=== PATIENT | male | born 1965 | race African-American/Black ===

== ENCOUNTER 2018-04-30 02:55 | Emergency (ER) | payer SELFPAY ==
[2018-04-30 03:05] VITALS: BMI 27.3
--- NOTE | 2018-04-30 03:58 | PDOC ---
History of Present Illness - General Chief Complaint: Headache Stated Complaint: HEADACHE Time Seen by Provider: 04/30/18 03:45 History Source: Patient - History of Present Illness Initial Comments: 04/30/18 04:10 The patient is a 53 year old male with a PMH of GERD, Headaches and PUD who presents to the ED c/o headache. Headache started 2-3 hours prior to presentation in our ED and is R sided w/associated tearing c/w his previous headaches. States he gets these headaches in 3 week periods for the last 7-8 years. Patient is actively intoxicated @ presentation and states he drinks a few beers after work daily. The patient denies chest pain, shortness of breath, abdominal pain, nausea/ vomiting, diarrhea/constipation, dysuria/hematuria. Allergy: Shellfish Past History - Past Medical History Allergies/Adverse Reactions: Allergies Allergy/AdvReac Type Severity Reaction Status Date / Time shellfish derived Allergy Severe Swelling Verified 10/01/15 16:39 No Known Drug Allergies Allergy Verified 10/01/15 17:25 Home Medications: Ambulatory Orders Omeprazole [Prilosec] 20 mg PO DAILY #30 capsule. 10/05/15 Anemia: No Asthma: No Cancer: No Cardiac Disorders: No CVA: No COPD: No CHF: No Dementia: No Diabetes: No GI Disorders: No Disorders: No HTN: No Hypercholesterolemia: No Kidney Stones: No Liver Disease: No Seizures: Yes (last 2013 ) Thyroid Disease: No - Reproductive History Testicular Surgery: No - Suicide/Smoking/Psychosocial Hx Smoking History: Never smoked Have you smoked in the past 12 months: No Information on smoking cessation initiated: No Hx Alcohol Use: No Drug/Substance Use Hx: No Substance Use Type: Alcohol Hx Substance Use Treatment: No Review of Systems - Review of Systems Constitutional: No: Chills, Fever HEENTM: Yes: Tearing. No: Eye Pain, Blurred Vision, Hearing Loss Respiratory: No: Cough, Shortness of Breath Cardiac (ROS): No: Chest Pain, Lightheadedness, Palpitations, Syncope ABD/GI: No: Constipated, Diarrhea, Nausea, Vomiting : No: Burning, Dysuria *Physical Exam - Vital Signs Last Vital Signs Temp Pulse Resp BP Pulse Ox 98.0 F 74 16 164/90 100 04/30/18 02:55 04/30/18 02:55 04/30/18 02:55 04/30/18 02:55 04/30/18 02:55 - Physical Exam General Appearance: Yes: Nourished, Appropriately Dressed, Alcohol on Breath HEENT: positive: Normal Voice, Hearing Grossly Normal Neck: positive: Trachea midline, Supple Respiratory/Chest: positive: Lungs Clear, Normal Breath Sounds Cardiovascular: positive: S1, S2 Gastrointestinal/Abdominal: positive: Normal Bowel Sounds, Soft. negative: Guarding, Rebound Neurologic: positive: Fully Oriented, Alert Moderate Sedation - Procedure Monitoring Vital Signs: Procedure Monitoring Vital Signs Temperature 98.0 F 04/30/18 02:55 Pulse Rate 74 04/30/18 02:55 Respiratory Rate 16 04/30/18 02:55 Blood Pressure 164/90 04/30/18 02:55 O2 Sat by Pulse Oximetry (%) 100 04/30/18 02:55 Medical Decision Making - Medical Decision Making 04/30/18 04:15 53 year old male with headache. Alcohol on breath @ presentation. Sleeping but arousable. VS unremarkable. No focal neurologic deficit on exam. Clinical history and presentation c/w cluster headache. Will give O2 NC as well as Reglan. Serum Ethanol pending. Reassess. 04/30/18 05:51 Alcohol 72.4 Patient reassessed @ bedside, symptomatically improved. 04/30/18 06:09 Will give Tylenol, referral to neurology and discharge home. Clinical Impression: Undiagnosed Cluster Headache w/superimposed alcohol intoxication I discussed the physical exam findings, ancillary test results and final diagnoses with the patient. I answered all of the patient's questions. The patient was satisfied with the care received and felt comfortable with the discharge plan and treatment plan. The patient will return to the Emergency Department with any new, persistent or worsening symptoms. 04/30/18 06:15 *DC/Admit/Observation/Transfer Diagnosis at time of Disposition: Headache - Discharge Dispostion Disposition: HOME Condition at time of disposition: Good Decision to Admit order: No - Referrals Referrals: Kj Montanez MD [Primary Care Provider] - Rodger Polanco DO [Staff Physician] - - Patient Instructions Printed Discharge Instructions: Getting to the Heart of a Healthy Diet: Alcohol , Heart-Healthy Diet, DI for Cluster Headache Additional Instructions: Please make a follow-up appointment with a neurologist for evaluation of your headaches. We have provided a referral for you or you can call your insurance company for a list of neurologists covered by your plan. Your care is not complete until you are evaluated by a neurologist. Return to the Emergency Department for any new/worsening/concerning symptoms. - Post Discharge Activity Forms/Work/School Notes: Back to Work
--- NOTE | 2018-04-30 04:07 | PDOC ---
Attending Attestation - Resident Resident Name: Miriam Dejesus - ED Attending Attestation I have performed the following: I have examined & evaluated the patient, The case was reviewed & discussed with the resident, I agree w/resident's findings & plan - HPI HPI: 04/30/18 06:04 Pt comes with headache. - Physicial Exam PE: 04/30/18 06:12 Agree with resident exam. Pt has normal neuro exam. HEENT normal. Missing front teeth. Abd soft NT ND Lungs clear; heart [id number] no ext pitting edema. Pt is neurologically intact. - Medical Decision Making 04/30/18 06:13 diagnosis: cluster HALLMAN. Pt will be referred to neurology. We counseled him on need to cut back on ETOH and eat healthful food.
[2018-04-30] MEDS ORDERED: KETOROLAC TROMETHAMINE 30 MG/1 ML VIAL IVPUSH ONE (04:11)
[2018-04-30] MEDS ORDERED: METOCLOPRAMIDE HCL INJECTION 10 MG/2 ML VIAL IVPUSH ONE ×2 (04:11→04:28)
[2018-04-30] MEDS ORDERED: METOCLOPRAMIDE HCL INJECTION 10 MG/2 ML VIAL ONE (05:19)
[2018-04-30] MEDS ORDERED: METOCLOPRAMIDE HCL 5 MG/5 ML UNIT DOSE CUP PO ONE (05:23)
[2018-04-30] MEDS ORDERED: METOCLOPRAMIDE HCL 10 MG TABLET (FP) PO ONE (05:33)
[2018-04-30] MEDS ORDERED: ACETAMINOPHEN 500 MG TABLET (FP) PO ONE (06:08)
[2018-04-30] MEDS ORDERED: ACETAMINOPHEN 325 MG TABLET (FP) ONE (06:37)
[2018-04-30 06:44] VITALS: BP 128/77; PULSE 82; TEMP 98.3
== END 2018-04-30 07:14 | disposition home or self-care (01) ==
LOC: JER 02:55
DX: G44.009 Cluster headache syndrome, unspecified, not intractable (principal); Z87.19 Personal history of other diseases of the digestive system; Z86.69 Personal history of other diseases of the nervous system and sense organs
CPT/HCPCS: 36415; 80307; 99281-25

== ENCOUNTER 2019-06-07 16:39 | Inpatient (IN) | payer OTHER ==
[2019-06-07] MEDS ORDERED: SODIUM CHLORIDE 1,000 ML IV STA (16:54)
[2019-06-07] MEDS ORDERED: ONDANSETRON 4 MG/2 ML VIAL IVPUSH ONE (16:54)
[2019-06-07] MEDS ORDERED: KETOROLAC TROMETHAMINE 30 MG/1 ML VIAL IVPUSH ONE (16:54)
[2019-06-07] MEDS ORDERED: PANTOPRAZOLE SODIUM 40 MG VIAL IVPUSH ONE (16:55)
--- NOTE | 2019-06-07 16:57 | PDOC ---
Rapid Medical Evaluation Time Seen by Provider: 06/07/19 16:53 Medical Evaluation: Allergies Allergy/AdvReac Type Severity Reaction Status Date / Time shellfish derived Allergy Severe Swelling Verified 06/07/19 16:53 No Known Drug Allergies Allergy Verified 06/07/19 16:53 06/07/19 16:55 Pt c/o: n/v/d, abd pain, dizziness since this am, drinks etoh daily pt on brief exam: tachy, not intoxicated pt ordered for: labs, urine, ivf, meds pt to proceed to the ED 06/07/19 16:56 Discharge Disposition - Diagnosis Nausea & vomiting, Abnormal EKG, Abdominal pain - Discharge Dispostion Disposition: HOME Condition at time of disposition: Improved - Referrals - Patient Instructions - Post Discharge Activity
--- NOTE | 2019-06-07 17:35 | PDOC ---
History of Present Illness - General History Source: Patient - History of Present Illness Initial Comments: 06/07/19 19:10 Mr. Orona is a 54 y/o M w/hx GERD, gastric ulcers, etoh use disorder p/w acute onset N/V last night. He reports drinking approx 6 beers one day ago, and waking up with 8/10 aching diffuse abdominal pain. He reports similar prior episodes after drinking alcohol. He reports approx 3-6 beers daily. He reports "constant" non-bilious vomiting throughout the course of the day, with blood tinged vomitus during his last 2 episodes of vomiting. He denies any abdominal surgery. He denies any chest pain, sob, fatigue, weakness. He has not attempted po since the onset of his symptoms. He has no family history of cardiac disease. <Noah Bloom - Last Filed: 06/07/19 21:12> <Tish Verdugo - Last Filed: 06/08/19 09:35> - General Chief Complaint: Nausea/Vomiting Stated Complaint: VOMITING/FATIGUE Time Seen by Provider: 06/07/19 16:53 Past History - Past Medical History Anemia: No Asthma: No Cancer: No Cardiac Disorders: No CVA: No COPD: No CHF: No Dementia: No Diabetes: No GI Disorders: No Disorders: No HTN: No Hypercholesterolemia: No Kidney Stones: No Liver Disease: No Seizures: Yes (last 2013 ) Thyroid Disease: No - Reproductive History Testicular Surgery: No - Psycho Social/Smoking Cessation Hx Smoking History: Never smoked Hx Alcohol Use: Yes Drug/Substance Use Hx: No Substance Use Type: Alcohol Hx Substance Use Treatment: No <Noah Bloom - Last Filed: 06/07/19 21:12> <Tish Verdugo - Last Filed: 06/08/19 09:35> - Past Medical History Allergies/Adverse Reactions: Allergies Allergy/AdvReac Type Severity Reaction Status Date / Time shellfish derived Allergy Severe Swelling Verified 06/07/19 16:53 No Known Drug Allergies Allergy Verified 06/07/19 16:53 Review of Systems - Review of Systems Able to Perform ROS?: Yes Comments:: 06/07/19 21:04 ROS: GENERAL/CONSTITUTIONAL: No fever or chills. No weakness. HEAD, EYES, EARS, NOSE AND THROAT: No change in vision. No ear pain or discharge. No sore throat. CARDIOVASCULAR: No chest pain or shortness of breath RESPIRATORY: No cough, wheezing, or hemoptysis. GASTROINTESTINAL: Nausea, vomiting, abdominal pain. No diarrhea or constipation. GENITOURINARY: No dysuria, frequency, or change in urination. MUSCULOSKELETAL: No joint or muscle swelling or pain. No neck or back pain. SKIN: No rash NEUROLOGIC: No headache, vertigo, loss of consciousness, or change in strength/ sensation. ENDOCRINE: No increased thirst. No abnormal weight change HEMATOLOGIC/LYMPHATIC: No anemia, easy bleeding, or history of blood clots. ALLERGIC/IMMUNOLOGIC: No hives or skin allergy. <Noah Bloom - Last Filed: 06/07/19 21:12> *Physical Exam - Vital Signs Last Vital Signs Temp Pulse Resp BP Pulse Ox 114 H 26 H 156/100 97 06/07/19 16:53 06/07/19 16:53 06/07/19 16:53 06/07/19 16:53 - Physical Exam 06/07/19 21:07 PE: GENERAL: Awake, alert, and fully oriented, groaning HEAD: No signs of trauma, normocephalic, atraumatic EYES: PERRLA, EOMI, sclera anicteric, conjunctiva clear ENT: Auricles normal inspection, hearing grossly normal, nares patent, oropharynx clear without exudates. Moist mucosa NECK: Normal ROM, supple, no lymphadenopathy, JVD, or masses LUNGS: No distress, speaks full sentences, clear to auscultation bilaterally HEART: Regular rate and rhythm, normal S1 and S2, no murmurs, rubs or gallops, peripheral pulses normal and equal bilaterally. ABDOMEN: Epigastric tenderness. Soft, normoactive bowel sounds. No guarding, no rebound. No masses EXTREMITIES : Normal inspection, Normal range of motion, no edema. No clubbing or cyanosis NEUROLOGICAL: Cranial nerves II through XII grossly intact. Normal speech, normal gait, no focal sensorimotor deficits SKIN: Warm, Dry, normal turgor, no rashes or lesions noted <Noah Bloom - Last Filed: 06/07/19 21:12> - Vital Signs Last Vital Signs Temp Pulse Resp BP Pulse Ox 98.7 F 78 18 96/61 100 06/08/19 06:00 06/08/19 06:00 06/08/19 06:00 06/08/19 06:00 06/08/19 03:40 <LucinaTish Pruett - Last Filed: 06/08/19 09:35> Heart Score/ECG Review - History History: Slightly suspicious - Electrocardiogram EKG: Non specific repolarization disturbance - Age Age: 45-65 - Risk Factors Based on the list above the patient has:: No risk factors known - Troponin Troponin: </= normal limit - Score Heart Score - Total: 2 <Noah Bloom - Last Filed: 06/07/19 21:12> ED Treatment Course - LABORATORY CBC & Chemistry Diagram: 06/07/19 17:45 06/07/19 17:45 <Noah Bloom - Last Filed: 06/07/19 21:12> - LABORATORY CBC & Chemistry Diagram: 06/08/19 06:50 06/08/19 02:00 - ADDITIONAL ORDERS Additional order review: 06/07/19 17:45 RBC 6.30 H MCV 84.7 MCHC 33.3 RDW 15.6 MPV 8.9 Neutrophils % 83.9 H Lymphocytes % 8.4 Monocytes % 7.4 Eosinophils % 0.0 Basophils % 0.3 - Medications Given in the ED: ED Medications Discontinued Medications Generic Name Dose Route Start Last Admin Trade Name Ovidio PRN Reason Stop Dose Admin Aspirin 325 mg 06/07/19 19:45 06/07/19 20:01 Ecotrin - PO 06/07/19 19:46 325 mg ONCE ONE Administration Clopidogrel Bisulfate 300 mg 06/07/19 19:45 06/07/19 20:01 Plavix - PO 06/07/19 19:46 300 mg ONCE ONE Administration Diazepam 10 mg 06/07/19 18:15 06/07/19 18:21 Valium - PO 06/07/19 18:16 10 mg ONCE ONE Administration Folic Acid 0.4 mg 06/07/19 22:54 06/08/19 00:12 Folic Acid Injection - SQ 06/07/19 22:55 0.4 mg ONCE ONE Administration Sodium Chloride 1,000 mls @ 1,000 mls/hr 06/07/19 16:54 06/07/19 17:56 Normal Saline - IV 06/07/19 17:53 1,000 mls/hr ASDIR STA Administration Folic Acid 1 mg/ Thiamine HCl 1,000 mls @ 125 mls/hr 06/07/19 22:51 06/08/19 00:48 100 mg/ Multivitamins/Minerals IVPB 06/08/19 06:50 125 mls/hr 10 ml/ Sodium Chloride ONCE ONE Administration Potassium Chloride 10 meq in 100 mls @ 100 mls/hr 06/07/19 23:00 06/08/19 02: 08 Potassium Chloride 10 Meq Premix Ivpb - IVPB 06/08/19 01:59 Not Given Q60M DREW Ketorolac Tromethamine 30 mg 06/07/19 16:54 06/07/19 18:02 Toradol Injection - IVPUSH 06/07/19 16:55 30 mg ONCE ONE Administration Ondansetron HCl 4 mg 06/07/19 16:54 06/07/19 18:02 Zofran Injection IVPUSH 06/07/19 16:55 4 mg ONCE ONE Administration Pantoprazole Sodium 40 mg 06/07/19 16:55 06/07/19 18:02 Protonix Iv IVPUSH 06/07/19 16:56 40 mg ONCE ONE Administration Potassium Chloride 40 meq 06/08/19 04:06 06/08/19 04:21 Potassium Chloride Oral Liquid PO 06/08/19 04:07 40 meq ONCE ONE Administration Sodium Chloride 1,000 ml 06/07/19 19:13 06/07/19 20:02 Normal Saline - IV 06/07/19 19:14 1,000 ml ONCE ONE Administration <Tish Verdugo - Last Filed: 06/08/19 09:35> Medical Decision Making - Medical Decision Making 06/07/19 20:40 54M w/hx GERD, gastric ulcer, etoh use disorder p/w acute onset abdominal pain s/p etoh use. Ddx includes pancreatitis, worsening GERD, cholecystitis, ACS. Plan: CBC CMP Cardiac profile 1L LR IV EKG CXR Zofran 4mg Pantoprazole Valium Toradol Dispo: Pending --- EKG notable for new T wave inversions and ST depressions in posterior leads, as well as slight elevation in aVR. Findings new compared to last EKG in system was in 2017. He denies any chest pain or palpitations at this time. Plan for ASA, plavix, R sided EKG. --- R sided EKG - improved - no ST elevations, no elevation noted in aVR --- CMP notable for Cr 2.7. Most recent on file was 0.9. Plan for admission for ROSS. <Noah Bloom - Last Filed: 06/07/19 21:12> Discharge - Discharge Information Problems reviewed: Yes - Admission Yes <Noah Bloom - Last Filed: 06/07/19 21:12> - Admission Yes <Tish Verdugo - Last Filed: 06/08/19 09:35> - Discharge Information Clinical Impression/Diagnosis: Abnormal EKG, Abdominal pain Nausea & vomiting Qualifiers: Vomiting type: unspecified Vomiting Intractability: non-intractable Qualified Code(s): R11.2 - Nausea with vomiting, unspecified Condition: Stable
[2019-06-07] MEDS ORDERED: KETOROLAC TROMETHAMINE 30 MG/1 ML VIAL ONE (18:00)
[2019-06-07] MEDS ORDERED: ONDANSETRON 4 MG/2 ML VIAL ONE (18:01)
[2019-06-07] MEDS ORDERED: PANTOPRAZOLE SODIUM 40 MG VIAL ONE (18:01)
[2019-06-07] MEDS ORDERED: diazePAM 5 MG TABLET PO ONE (18:15)
[2019-06-07] MEDS ORDERED: diazePAM 5 MG TABLET ONE (18:20)
[2019-06-07 18:37] LABS: BASO % 0.3 % (0-2.0); HEMATOCRIT 53.3 % (35.4-49); HEMOGLOBIN 17.7 GM/dL (11.7-16.9); LYMPH % 8.4 % (8-40); MCH 28.2 pg (25.7-33.7); MCHC 33.3 g/dl (32.0-35.9); MEAN CELL VOLUME 84.7 fl (80-96); MEAN PLT VOLUME 8.9 fl (7.5-11.1); MONO % 7.4 % (3.8-10.2); NEUT % 83.9 % (42.8-82.8); PLATELET COUNT 438 K/MM3 (134-434); RDW 15.6 % (11.9-15.9); WHITE BLOOD COUNT 13.4 K/mm3 (4.0-10.0)
[2019-06-07 19:09] LABS: ALBUMIN 5.1 g/dl (3.4-5.0); ALK PHOS 156 U/L (45-117); AMYLASE 53 U/L (25-115); ANION GAP 17 MMOL/L (8-16); BILIRUBIN,TOTAL 0.7 mg/dL (0.2-1); BLOOD UREA NITROGEN 17.5 mg/dL (7-18); CALCIUM 10.7 mg/dL (8.5-10.1); CHLORIDE 96 mmol/L (98-107); CO2 26 mmol/L (21-32); CREATININE 2.7 mg/dL (0.55-1.3); GLUCOSE,RANDOM 173 mg/dL (74-106); LIPASE 153 U/L (73-393); MAGNESIUM 1.9 mg/dL (1.8-2.4); POTASSIUM 3.3 mmol/L (3.5-5.1); SGOT/AST 36 U/L (15-37); SGPT/ALT 41 U/L (13-61); SODIUM 140 mmol/L (136-145); TOT PROT 10.2 g/dl (6.4-8.2)
--- NOTE | 2019-06-07 19:09 | PDOC ---
Attending Attestation - Resident Resident Name: WolfNoah - ED Attending Attestation I have performed the following: I have examined & evaluated the patient, The case was reviewed & discussed with the resident, I agree w/resident's findings & plan - HPI HPI: 06/07/19 19:16 54 year old male with a PMH of GERD, Headaches and PUD, alcohol dependence presenting with epigastric AP. nausea vomiting since yesterday. his last drink of 6 beers about 1 day ago, today woke up with aching diffuse AP. He reports similar prior episodes after drinking alcohol. He reports approx 3-6 beers daily. He reports "constant" non-bilious vomiting throughout the course of the day, with blood tinged vomitus during his last 2 episodes of vomiting. He denies any abdominal surgery. He denies any chest pain, sob, fatigue, weakness. He has not attempted po since the onset of his symptoms. He has no family history of cardiac disease/OK/sudden . Leg cramps have also been bothering him for long time, but no leg pain or swelling.. no weakness or paresthesias. 06/08/19 09:36 06/08/19 09:49 - Physicial Exam PE: 06/07/19 19:09 Agree with the resident's HPI and PE as documented in the electronic medical record. NAD, awake and alert, EOMI, PERRL, nl conjunctiva, anicteric; neck supple. lungs clear, +tachy, abdomen soft +epigastric TTP, no rebound, guarding. no cassidy's or mcburney's point tenderness. no CVAT> Back nontender. DELGADO x4, no focal neuro deficits. No peripheral edema. normal color for ethnicity, WWP. 06/07/19 19:09 06/08/19 09:52 - Medical Decision Making 06/07/19 19:15 Vital Signs Temp Pulse Resp BP Pulse Ox 114 H 26 H 156/100 97 06/07/19 16:53 06/07/19 16:53 06/07/19 16:53 06/07/19 16:53 Vital Signs Temp Pulse Resp BP Pulse Ox 98.6 F 83 18 111/67 100 06/08/19 09:34 06/08/19 09:34 06/08/19 09:34 06/08/19 09:34 06/08/19 03:40 VS reviewed initially tachy likely from pain no fever. hypertensive 2/2 pain DDx Renal colic, biliary colic, metabolic/electrolyte derangements. GERD, PUD, esophageal spasm, pancreatitis, hepatitis, constipation, colitis, gastroenteritis, cholecystitis, UTI, pyelonephritis, ileus, SBO, medication side effect, hernia, appendicitis, diverticulitis. msk strain, mesenteric adenitis, psoas abscess. ACS, coronary vasospasm, NSTEMI, arrhythmia, unstable angina, PE, dissection, PUD, esophageal spasm, GERD, gastritis, costochondritis , pneumonia, pleurisy, pericarditis/myocarditis. dehydration, electrolyte/ metabolic derangements. no lower abdominal pain so unlikely appy/diverticulitis no complaints doubt biliary etiology. abdomen soft and nonperitoneal. labs and lytes with +cr elevtion 2.7, ROSS. trops neg, reassuringly, but new EKG changes and epigastric AP, needs MARVA/r/o ACS pt given valium for leg cramps, also holds off etoh w/d, no e/o intox or alcohol w/d now pt in pain, given appropriate analgesia, IVF, antiemetics, supportive measures Ultrasound with cholelithiasis without evidence of cholecystitis, possible chronic pancreatitis seen, recommended CT imaging for further care. Will admit to the hospital pending the CT scan for further evaluation is unlikely to have emergent pathology at this time. Patient has medical diagnoses including abnormal EKG with new T wave inversions in the lateral inferior leads as well as ROSS with creatinine now up to 2.7. Hydrating now and recheck. 06/08/19 09:37 06/08/19 09:52 06/08/19 09:54 Heart Score/ECG Review #1 ECG reviewed & interpreted by me at: 19:00 General ECG Interpretation: Sinus Rhythm, Normal Intervals Compared to previous ECG there are: Changes noted 06/07/19 19:16 EKG sinus tachycardia 102 bpm no interval abnormalities, narrow QRS, ST and T wave segments and morphology normal. Nonspecific T wave abnormalities with new T wave inversions in the lateral leads, inferior leads II, III and aVF
[2019-06-07] MEDS ORDERED: SODIUM CHLORIDE 0.9% 500 ML INFUS.BAG IV ONE (19:13)
[2019-06-07] MEDS ORDERED: ASPIRIN 325 MG ENTERIC COATED TABLET (FP) PO ONE (19:45)
[2019-06-07] MEDS ORDERED: CLOPIDOGREL BISULFATE 300 MG TABLET PO ONE (19:45)
[2019-06-07] MEDS ORDERED: ASPIRIN 325 MG ENTERIC COATED TABLET (FP) ONE (19:56)
[2019-06-07] MEDS ORDERED: CLOPIDOGREL BISULFATE 300 MG TABLET ONE (19:57)
--- NOTE | 2019-06-07 21:46 | PN ---
Teaching Attending Note Name of Resident: David Odom ATTENDING PHYSICIAN STATEMENT I saw and evaluated the patient. I reviewed the resident's note and discussed the case with the resident. I agree with the resident's findings and plan as documented. SUBJECTIVE: Patient is a 54 year old man with a PMH of GERD, Bleeding gastric ulcers, Alcohol abuse and Seizures who presents with acute onset of nausea and vomiting last night. He reports drinking about 6 beers one day ago, and waking up with 8/ 10 aching diffuse abdominal pain. He reports similar prior episodes after drinking alcohol. He reports "constant" non-bilious vomiting throughout the course of the day, with blood tinged vomitus during his last 2 episodes of vomiting. Has associated diarrhea. He denies any abdominal surgery. He denies any chest pain, SOB, fatigue or weakness. He has not attempted PO intake since the onset of his symptoms. He has no family history of cardiac disease. Denies tobacco or illicit drug use. No sick contacts or recent travels. OBJECTIVE: Alert Vital Signs Period Temp Pulse Resp BP Sys/Griffin Pulse Ox Last 24 Hr 99-114 20-26 114-156/71-100 97-100 HEENT: No Jaundice, eye redness or discharge, PERRLA, EOMI. Normocephalic, atraumatic. External ears are normal and hearing is grossly intact. No nasal discharge. Neck: Supple, nontender. No palpable adenopathy or thyromegaly. No JVD Chest: Good effort. Clear to auscultation and percussion. Heart: Regular. No S3, rub or murmur Abdomen: Not distended, soft, nontender and no HSM. Reducible umblical hernia. No rebound or guarding. Normal bowel sounds. Ext: Peripheral pulses intact. No leg edema. Skin: Warm and dry. No petechiae, rash or ecchymosis. Neuro: Alert. Oriented x3. No tremors or asterexis. CN 2-12 grossly intact. Sensation grossly intact in all four extremities and DTR are symmetric. Psych: Appropriate mood and affect. Good insight. Current Medications Generic Name Dose Route Start Last Admin Trade Name Freq PRN Reason Stop Dose Admin Folic Acid 1 mg/ Thiamine HCl 1,000 mls @ 125 mls/hr 06/07/19 22:51 100 mg/ Multivitamins/Minerals IVPB 06/08/19 06:50 10 ml/ Sodium Chloride ONCE ONE Lactated Ringer's 1,000 ml in 1,000 mls @ 100 mls/hr 06/07/19 23:00 Lactated Ringers Solution IV ASDIR DREW Potassium Chloride 10 meq in 100 mls @ 100 mls/hr 06/07/19 23:00 Potassium Chloride 10 Meq Premix Ivpb - IVPB 06/08/19 01:59 Q60M DREW Pantoprazole Sodium 40 mg 06/08/19 10:00 Protonix Iv IVPUSH BID DREW Thiamine HCl 200 mg 06/08/19 10:00 Vitamin B1 Injection - IVPB DAILY [facility] Home Medications Medication Instructions Recorded Omeprazole 20 mg PO DAILY 06/07/19 Abnormal Lab Results 06/07/19 06/07/19 17:45 17:45 WBC 13.4 H RBC 6.30 H Hgb 17.7 H Hct 53.3 H D Plt Count 438 H D Absolute Neuts (auto) 11.3 H Neutrophils % 83.9 H Potassium 3.3 L Chloride 96 L Anion Gap 17 H Creatinine 2.7 H Random Glucose 173 H Calcium 10.7 H Alkaline Phosphatase 156 H Total Protein 10.2 H Albumin 5.1 H ASSESSMENT AND PLAN: 1. Alcoholic gastritis/GI bleeding - Patient being treated with IV Protonix, Zofran, IV NS and IV KCL. Will monitor HCT q 6 hours, get HbA1c, phosphate level , consult GI and avoid NSAIDS. Get CT abdomen/pelvis. Repeat serum calcium after hydration an get PTH level if it is still high. EKG shows sinus tachycardia at 102/minute, ST depression in III, V4-6 and LAE. Initial troponin is negative. Will rule out ACS. Leukocytosis likely due to stress. UA and abdominal CT pending. He is afebrile. Will continue comprehensive care for all of patients comorbid conditions. Implement sliding scale insulin regimen. 2. ROSS - Likely due to volume loss. Will monitor urine output as he is hydrated and get kidney sonogram. Will consult nephrology and avoid nephrotoxic agents such as NSAIDS, aminoglycosides, contrast dyes and certain Alternative medicine products. 3. Alcohol abuse - Implement [facility] librium alcohol withdrawal protocol and do neurochecks. Implement seizure, fall and aspiration precautions. Treat with IV Banana bag, thiamine and folic acid. Monitor and replete electrolytes (Ca,Mg,K,P ). Counseled patient about abstaining from alcohol. Will consult learning and development specialist and refer to alcohol detox upon discharge. 4. DVT prophylaxis - SCD 5. Advance directives - Full code
[2019-06-07] MEDS ORDERED: FOLIC ACID INJECTION - 1 MG, THIAMINE HCL 100 MG, MULTIVIT INJECTION ADULT 10 ML in SOD... IVPB ONE (22:51)
[2019-06-07] MEDS ORDERED: FOLIC ACID 5 MG/1 ML SQ ONE (22:54)
--- NOTE | 2019-06-07 23:02 | HP ---
CHIEF COMPLAINT: Nausea and vomiting PCP: Dr. Montanez HISTORY OF PRESENT ILLNESS: Pt. is a 54 y.o. M w/ PMHx. of GERD, PUD, and EtOH abuse presents with nausea and vomiting for 1 day associated with 6 episodes of watery diarrhea earlier in the day. Pt. endorses that he had been having blood in the emesis. Of note Pt. states that 8 months ago he was admitted at [facility] for the exact same situation where he had a unremarkable colonoscopy and an EGD. During EGD Pt. was found to have multiple gastric and duodenal ulcers which were cauterized. Pt. had a change in hemoglobin from 16 to 8 during this time but never received a transfusion. Pt. was discharged on a daily PPI. Pt. states that he has not taken his Omeprazole since Monday because he ran out. Pt. states that 3 years ago he was admitted at [facility] for a similar presentation. Pt. endorses throat pain and "burning in his esophagus." Pt. states that he presented with muscle cramps all over but that that has gotten better. Pt. states that he had one episode of dizziness after vomiting and he "passed out" for a brief moment but denies hitting his head or losing consciousness?. Pt. endorses some epigastric discomfort. Pt. denies any blood in his stool or urine. Pt. denies any chest pain currently or in the past, shortness of breath, fever, chills, or current dizziness. ER course was notable for: (1)CBC, CMP, Trop, EKG x 2, (2)Zofran, Toradol, ASA, Plavix, Protonix (3) Recent Travel: No PAST MEDICAL HISTORY: As above PAST SURGICAL HISTORY: None Social History: Smoking: Denies Alcohol: ~3-6 beers (sometimes Malt liquor, sometimes 18 Oz. 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 Allergies shellfish derived Allergy (Severe, Verified 06/07/19 16:53) Swelling No Known Drug Allergies Allergy (Verified 06/07/19 16:53) HOME MEDICATIONS: Home Medications Medication Instructions Recorded Omeprazole 20 mg PO DAILY 06/07/19 REVIEW OF SYSTEMS As above PHYSICAL EXAMINATION Vital Signs - 24 hr 06/07/19 06/07/19 06/07/19 16:53 22:24 22:36 Pulse Rate 114 H Pulse Rate [ 99 H Radial] Respiratory 26 H 20 Rate Blood Pressure 156/100 Blood Pressure 114/71 [Right Arm] O2 Sat by Pulse 97 98 100 Oximetry (%) Temperature 98 degrees Orally GENERAL: Awake, alert, and fully oriented, in no acute distress. HEAD: Normal with no signs of trauma. EYES: Pupils equal, round and reactive to light, extraocular movements intact, sclera anicteric, conjunctiva clear. EARS, NOSE, THROAT: Ears normal, nares patent, pharyngeal erythema Moist mucous membranes. NECK: Normal range of motion, supple without lymphadenopathy, or JVD LUNGS: Breath sounds equal, clear to auscultation bilaterally. No wheezes, and no crackles. No accessory muscle use. HEART: Regular rate and rhythm, normal S1 and S2 without murmur ABDOMEN: Soft, nontender, not distended, normoactive bowel sounds, no guarding, no rebound, reducible umbilical hernia. No hepatomegaly MUSCULOSKELETAL: Normal range of motion at all joints. No CVA tenderness. UPPER EXTREMITIES: 2+ radial pulses, warm, well-perfused. No cyanosis. No clubbing. No peripheral edema. LOWER EXTREMITIES: 2+ dorsal pedal pulses, warm, well-perfused. No calf tenderness. No peripheral edema. NEUROLOGICAL: Normal speech. No focal deficits. PSYCHIATRIC: Cooperative. Good eye contact. Appropriate mood and affect. SKIN: Warm, dry Laboratory Results - last 24 hr 06/07/19 06/07/19 17:45 17:45 WBC 13.4 H RBC 6.30 H Hgb 17.7 H Hct 53.3 H D MCV 84.7 MCH 28.2 MCHC 33.3 RDW 15.6 Plt Count 438 H D MPV 8.9 Absolute Neuts (auto) 11.3 H Neutrophils % 83.9 H Lymphocytes % 8.4 Monocytes % 7.4 Eosinophils % 0.0 Basophils % 0.3 Nucleated RBC % 0 Sodium 140 Potassium 3.3 L Chloride 96 L Carbon Dioxide 26 Anion Gap 17 H BUN 17.5 Creatinine 2.7 H Est GFR (CKD-EPI)AfAm 29.63 Est GFR (CKD-EPI)NonAf 25.56 Random Glucose 173 H Calcium 10.7 H Magnesium 1.9 Total Bilirubin 0.7 AST 36 ALT 41 Alkaline Phosphatase 156 H Creatine Kinase 287 Creatine Kinase Index 1.1 CK-MB (CK-2) 3.4 Troponin I < 0.02 Total Protein 10.2 H Albumin 5.1 H Total Amylase 53 Lipase 153 ASSESSMENT/PLAN: Pt. is a 54 y.o. M w/ PMHx. of GERD, PUD, and EtOH abuse presents with nausea and vomiting for 1 day associated with 6 episodes of watery diarrhea earlier in the day. #Diarrhea, Nausea and blood tinged-Vomiting w/ associated Hx. of Peptic Ulcer Disease c/w Protonix 40mg IV BID NPO GI Consult (Dr. Young) appreciated, suspect Pt. may require inpatient EGD for evaluation of PUD and for evalauation of esophagus. CT: A/P shows cholelithiasis, lower esophageal wall thickening to 1.7cm circumferentially (normally 0.03cm per discussion with Dr. Kidd), chronic pancreatitis, denies the presenc of overt varices, unable to rule out esophageal mass Lipase: 153 f/u EGD records from [facility] trend Hgb, monitor for signs of bleeding #ROSS likely 2/2 to volume loss from episodes of vomiting and diarrhea Cr. 2.7 increased from 0.9 (2016) Pt. has elevation in ABC, Hgb, Hct and platelets again suggesting dehydration and volume loss trend renal function and avoid nephrotoxic agents. Pt. endorses a similar situation at [facility] 8 months ago, if Renal function does not improve would suggest getting renal consult for further work up. #EtoH Abuse counselled Pt on importance of EtOH cessation EtOH level: 72 No signs of active withdrawal, will start Librium protocol if Pt. begins to show signs of withdrawal. Can use Ativan protocol if Pt. is to maintain prolonged NPO status CIWA: 0 Thiamine and Folic Acid f/u Utox #FEN LR @ 100 monitor electrolytes and replete as needed, repleting potassium in IV and with PO, f/u repeat NPO #DVT Ppx. SCDs Visit type - Emergency Visit Emergency Visit: Yes ED Registration Date: 06/07/19 Care time: The patient presented to the Emergency Department on the above date and was hospitalized for further evaluation of their emergent condition. - New Patient This patient is new to me today: Yes Date on this admission: 06/07/19 - Critical Care Critical Care patient: No ATTENDING PHYSICIAN STATEMENT I saw and evaluated the patient. I reviewed the resident's note and discussed the case with the resident. I agree with the resident's findings and plan as documented. SUBJECTIVE: OBJECTIVE: ASSESSMENT AND PLAN:
[2019-06-07] MEDS: LACTATED RINGERS SOLUTION 1,000 ML/1,000 ML INFUS.BAG IV SCH (23:20)
[2019-06-07] MEDS ORDERED: KCL 10 MEQ IVPB 30 MEQ/300 ML INFUS.BAG IVPB ONE (23:22)
[2019-06-07] MEDS ORDERED: amLODIPine BESYLATE 5 MG TABLET (FP) ONE (23:27)
[2019-06-07] MEDS: KCL 10 MEQ IVPB 10 MEQ/100 ML INFUS.BAG IVPB SCH (23:33)
[2019-06-08] MEDS: KCL 10 MEQ IVPB 10 MEQ/100 ML INFUS.BAG IVPB SCH ×2 (00:48→02:08)
[2019-06-08 03:08] LABS: BLOOD UREA NITROGEN 21.6 mg/dL (7-18); CREATININE 1.8 mg/dL (0.55-1.3); POTASSIUM 3.3 mmol/L (3.5-5.1)
[2019-06-08 03:57] VITALS: BMI 27.9
[2019-06-08] MEDS ORDERED: POTASSIUM CHLORIDE ORAL LIQUID 20 MEQ/15 ML PO ONE (04:06)
[2019-06-08 05:21] LABS: URINE APPEARANCE TURBID; URINE COLOR DK YELLOW; URINE GLUCOSE (UA) NEGATIVE (NEGATIVE)
[2019-06-08 05:22] LABS: URINE BILIRUBIN SMALL (NEGATIVE); URINE KETONE TRACE (NEGATIVE); URINE NITRITE NEGATIVE (NEGATIVE); URINE PROTEIN 300 (NEGATIVE)
[2019-06-08 05:23] LABS: EPI CELLS 20.2 /HPF (0-5/HPF); HYALINE CASTS 584.12 /lpf (0-8); URINE BACTERIA 0.7 /hpf (NEGATIVE); URINE LEUK ESTERASE NEGATIVE (NEGATIVE); URINE RBC 1.1 /hpf (0-4); URINE WBC 5.7 /hpf (0-5)
[2019-06-08 08:40] LABS: BASO % 0.3 % (0-2.0); EOS % 0.4 % (0-4.5); HEMATOCRIT 39.7 % (35.4-49); HEMOGLOBIN 13.3 GM/dL (11.7-16.9); LYMPH % 16.8 % (8-40); MCH 28.7 pg (25.7-33.7); MCHC 33.5 g/dl (32.0-35.9); MEAN CELL VOLUME 85.6 fl (80-96); MEAN PLT VOLUME 8.3 fl (7.5-11.1); MONO % 8.8 % (3.8-10.2); NEUT % 73.7 % (42.8-82.8); PLATELET COUNT 266 K/MM3 (134-434); RBC 4.64 M/mm3 (4.00-5.60); RDW 15.7 % (11.9-15.9); WHITE BLOOD COUNT 10.9 K/mm3 (4.0-10.0)
[2019-06-08] MEDS: THIAMINE HCL 200 MG/2 ML VIAL IVPB SCH (09:43)
[2019-06-08 09:48] LABS: ALBUMIN 3.3 g/dl (3.4-5.0); BILIRUBIN,TOTAL 1.1 mg/dL (0.2-1); BLOOD UREA NITROGEN 20.6 mg/dL (7-18); CALCIUM 7.8 mg/dL (8.5-10.1); CREATININE 1.5 mg/dL (0.55-1.3); POTASSIUM 3.5 mmol/L (3.5-5.1); TOT PROT 6.9 g/dl (6.4-8.2)
[2019-06-08] MEDS ORDERED: PANTOPRAZOLE SODIUM 40 MG VIAL IVPUSH SCH (10:00)
--- NOTE | 2019-06-08 10:31 | PN ---
Progress Note (short form) - Note Progress Note: Patient is lying comfortably in bed with no acute distress. Vital Signs Temperature 98.6 F 06/08/19 09:34 Pulse Rate 83 06/08/19 09:34 Respiratory Rate 18 06/08/19 09:34 Blood Pressure 111/67 06/08/19 09:34 O2 Sat by Pulse Oximetry (%) 100 06/08/19 03:40 GENERAL: The patient is awake, alert, and fully oriented, in no acute distress. HEAD: Normal with no signs of trauma. EYES: PERRL, extraocular movements intact, sclera anicteric, conjunctiva clear. ENT: Ears normal, oropharynx clear without exudates, moist mucous membranes. NECK: Trachea midline, full range of motion, supple. LUNGS: Breath sounds equal, clear to auscultation bilaterally, no wheezes, no crackles, no accessory muscle use. HEART: Regular rate and rhythm, S1, S2 without murmur, rub or gallop. ABDOMEN: Soft, nontender, mildly distended but soft, his norm since he drinks alcohol as per patient. +BS, no guarding, no rebound EXTREMITIES: 2+ pulses, warm, well-perfused, no edema. NEUROLOGICAL: Cranial nerves II through XII grossly intact. Normal speech, gait not observed. PSYCH: Normal mood, normal affect. SKIN: Warm, dry, normal turgor, no rashes or lesions noted CBCD WBC 10.9 K/mm3 (4.0-10.0) H 06/08/19 06:50 RBC 4.64 M/mm3 (4.00-5.60) 06/08/19 06:50 Hgb 13.3 GM/dL (11.7-16.9) 06/08/19 06:50 Hct 39.7 % (35.4-49) D 06/08/19 06:50 MCV 85.6 fl (80-96) 06/08/19 06:50 MCHC 33.5 g/dl (32.0-35.9) 06/08/19 06:50 RDW 15.7 % (11.9-15.9) 06/08/19 06:50 Plt Count 266 K/MM3 (134-434) D 06/08/19 06:50 MPV 8.3 fl (7.5-11.1) 06/08/19 06:50 CMP Sodium 139 mmol/L (136-145) 06/08/19 06:50 Potassium 3.5 mmol/L (3.5-5.1) 06/08/19 06:50 Chloride 104 mmol/L (98-107) 06/08/19 06:50 Carbon Dioxide 25 mmol/L (21-32) 06/08/19 06:50 Anion Gap 10 MMOL/L (8-16) 06/08/19 06:50 BUN 20.6 mg/dL (7-18) H 06/08/19 06:50 Creatinine 1.5 mg/dL (0.55-1.3) H 06/08/19 06:50 Random Glucose 92 mg/dL (74-106) 06/08/19 06:50 Calcium 7.8 mg/dL (8.5-10.1) L 06/08/19 06:50 Total Bilirubin 1.1 mg/dL (0.2-1) H 06/08/19 06:50 AST 20 U/L (15-37) 06/08/19 06:50 ALT 26 U/L (13-61) 06/08/19 06:50 Alkaline Phosphatase 106 U/L (45-117) 06/08/19 06:50 Total Protein 6.9 g/dl (6.4-8.2) 06/08/19 06:50 Albumin 3.3 g/dl (3.4-5.0) L 06/08/19 06:50 CARDIAC ENZYMES Creatine Kinase 287 U/L (26-308) 06/07/19 17:45 Troponin I < 0.02 ng/ml (0.00-0.05) 06/07/19 17:45 Current Medications Generic Name Dose Route Start Last Admin Trade Name Freq PRN Reason Stop Dose Admin Lactated Ringer's 1,000 ml in 1,000 mls @ 100 mls/hr 06/07/19 23:00 06/07/19 23:20 Lactated Ringers Solution IV 100 mls/hr ASDIR DREW Administration Pantoprazole Sodium 40 mg 06/08/19 10:00 06/08/19 09:43 Protonix Iv IVPUSH 40 mg BID DREW Administration Thiamine HCl 200 mg 06/08/19 10:00 06/08/19 09:43 Vitamin B1 Injection - IVPB 200 mg DAILY DREW Administration Home Medications Medication Instructions Recorded Omeprazole 20 mg PO DAILY 06/07/19 CT: A/P shows cholelithiasis, lower esophageal wall thickening to 1.7cm circumferentially (normally 0.03cm per discussion with Dr. Kidd), chronic pancreatitis, Assessment and Plan; Pt. is a 54yom with PMHx of GERD, PUD, and EtOH abuse presents with nausea and vomiting for 1 day associated with 6 episodes of watery diarrhea. #Acute Diarrhea with Nausea and blood tinged-Vomiting: No further N/V , no further bleed. on clears tolerating well. GI Consult (Dr. Young) .Discussed WITH Dr. Young , most likely EGD on Monday since patient received Plavix 300mg/aspirin in ED. to evaluate varicees. H/H monitor #ROSS: 0.9(2015)-->Cr. 2.7 --> 1.5 #EtoH Abuse; Thiamine/ Folic Acid/ f/u Utox on clears now as per GI #DVT Ppx: SCDs Visit type - Emergency Visit Emergency Visit: Yes ED Registration Date: 06/07/19 Care time: The patient presented to the Emergency Department on the above date and was hospitalized for further evaluation of their emergent condition. - New Patient This patient is new to me today: Yes Date on this admission: 06/08/19 - Critical Care Critical Care patient: No - Discharge Referral Referred to [facility] Med P.C.: No
--- NOTE | 2019-06-08 12:02 | CON.GI ---
Consult Consult Specialty:: GI Referred by:: Hospitalist Service Reason for Consultation:: Vomiting - History of Present Illness Chief Complaint: Vomiting History of Present Illness: 54M admitted through [facility] for evaluation of vomiting. He states that the vomiting started , had multiple episodes that eventuially became dark. had episodes monday. Denies abdominal pain. Denies rectal bleeding or melena. Had EGD/Colonoscopy 2019 at [facility] per the patient. This was for dark bowel movements. He believes that he may have had an ulcer. no vomiting today. Hgb was elevated on admission, likely on the basis of dehydration. Hgb was12.7 06/05. He drinks 4-5 20 oz cans of beer per day. he denies withdrawal symptoms in the past. No vomiting today. Hgb 13.3. Cr was elevated on admission. CT scan reveals thickening of esophagus. Patient denies dysphagia - History Source History Provided By: Patient - Past Medical History Gastrointestinal: Yes: Other (PUD) - Past Surgical History Additional Surgical History: Denies - Alcohol/Substance Use Hx Alcohol Use: Yes - Smoking History Smoking history: Never smoked - Social History Usual Living Arrangement: Other (With fiance) ADL: Independent Place of : [facility] History of Recent Travel: No Home Medications - Allergies Allergies/Adverse Reactions: Allergies Allergy/AdvReac Type Severity Reaction Status Date / Time shellfish derived Allergy Severe Swelling Verified 06/07/19 16:53 No Known Drug Allergies Allergy Verified 06/07/19 16:53 - Home Medications Home Medications: Ambulatory Orders Omeprazole 20 mg PO DAILY 06/07/19 Family Medical History Other Family History: Mother: 62 after uterine surgery. Father: : unclear causes. 1 brother: : Lymphoma. 1 daughter: healthy. No family history of colorectal cancer or other GI malignancy Review of Systems - Review of Systems Constitutional: denies: Chills Cardiovascular: denies: Chest Pain Respiratory: denies: Cough Gastrointestinal: reports: Nausea, Vomiting. denies: Abdominal Pain, Rectal Bleeding Physical Exam-GI Vital Signs: Vital Signs Temperature 98.6 F 06/08/19 09:34 Pulse Rate 83 06/08/19 09:34 Respiratory Rate 18 06/08/19 09:34 Blood Pressure 111/67 06/08/19 09:34 O2 Sat by Pulse Oximetry (%) 100 06/08/19 03:40 Constitutional: Yes: Calm Eyes: No: Sclera Icterus Cardiovascular: Yes: Regular Rate and Rhythm Respiratory: Yes: CTA Bilaterally Gastrointestinal Inspection: No: Distention ...Auscultate: Yes: Normoactive Bowel Sounds ...Palpate: Yes: Soft. No: Hepatomegaly, Splenomegaly, Tenderness ...Percussion: No: Tympanitic ...Rectal Exam: Yes: Other (No external lesions, no masses, scant brown stool) Edema: No (No LE edema) Neurological: Yes: Alert Labs: CBC, BMP 06/08/19 06:50 06/08/19 06:50 Problem List - Problems (1) Nausea & vomiting Assessment/Plan: No further vomiting No overt bleeding with Hgb 13.2. Admission Hgb reflects hemoconcentration from dehydration. Suspect CT scan relfects esopghagitis Advise: Clear liquids Protonix 40mg PO BID for now and will tailor according to EGD findings. Obtain more information regarding EGD/Colonoscopy at [facility] and obtain reports EGD for Monday. Discussed potential risks of the procedure like but not limited to bleeding, perforation requiring surgery to repair, infection, sedation medication effects all of which could be potentially life threatening. He has agreed to the procedure. advised the need for complete alcohol cessation Monitor for ETOH withdrawal Monitor for overt bleeding Code(s): R11.2 - NAUSEA WITH VOMITING, UNSPECIFIED Qualifiers: Vomiting type: unspecified Vomiting Intractability: non-intractable Qualified Code(s): R11.2 - Nausea with vomiting, unspecified
--- NOTE | 2019-06-08 13:30 | EKG ---
Test Reason : Blood Pressure : / mmHG Vent. Rate : 102 BPM Atrial Rate : 102 BPM P-R Int : 150 ms QRS Dur : 084 ms QT Int : 348 ms P-R-T Axes : 058 030 110 degrees QTc Int : 453 ms SINUS TACHYCARDIA POSSIBLE LEFT ATRIAL ENLARGEMENT NONSPECIFIC ST AND T WAVE ABNORMALITY ABNORMAL ECG Confirmed by ELIAZAR CASILLAS MD ([id number]) on 06/08/2019 1:29:29 PM Referred By: Confirmed By:ELIAZAR CASILLAS MD
--- NOTE | 2019-06-08 13:30 | EKG ---
Test Reason : Blood Pressure : / mmHG Vent. Rate : 102 BPM Atrial Rate : 102 BPM P-R Int : 152 ms QRS Dur : 092 ms QT Int : 350 ms P-R-T Axes : 063 040 -39 degrees QTc Int : 456 ms SINUS TACHYCARDIA POSSIBLE LEFT ATRIAL ENLARGEMENT SEPTAL INFARCT , AGE UNDETERMINED NONSPECIFIC ST AND T WAVE ABNORMALITY ABNORMAL ECG NO PREVIOUS ECGS AVAILABLE Confirmed by ELIAZAR CASILLAS MD ([id number]) on 06/08/2019 1:29:56 PM Referred By: Confirmed By:ELIAZAR CASILLAS MD
[2019-06-08] MEDS: ACETAMINOPHEN 325 MG TABLET (FP) PO PRN (19:40)
[2019-06-08] MEDS: PANTOPRAZOLE 40 MG TABLET PO SCH (21:43)
[2019-06-09] MEDS: LACTATED RINGERS SOLUTION 1,000 ML/1,000 ML INFUS.BAG IV SCH (00:58)
[2019-06-09] MEDS: THIAMINE HCL 200 MG/2 ML VIAL IVPB SCH (09:14)
[2019-06-09] MEDS: PANTOPRAZOLE 40 MG TABLET PO SCH ×2 (09:14→22:01)
[2019-06-09 09:34] LABS: BASO % 0.7 % (0-2.0); EOS % 1.3 % (0-4.5); HEMATOCRIT 39.8 % (35.4-49); HEMOGLOBIN 13.1 GM/dL (11.7-16.9); LYMPH % 30.9 % (8-40); MCH 28.2 pg (25.7-33.7); MEAN CELL VOLUME 85.5 fl (80-96); MONO % 9.2 % (3.8-10.2); NEUT % 57.9 % (42.8-82.8); PLATELET COUNT 251 K/MM3 (134-434); RBC 4.66 M/mm3 (4.00-5.60); RDW 15.6 % (11.9-15.9); WHITE BLOOD COUNT 4.8 K/mm3 (4.0-10.0)
[2019-06-09 10:05] LABS: ALBUMIN 3.1 g/dl (3.4-5.0); BILIRUBIN,TOTAL 0.9 mg/dL (0.2-1); BLOOD UREA NITROGEN 6.7 mg/dL (7-18); CALCIUM 8.6 mg/dL (8.5-10.1); CREATININE 0.9 mg/dL (0.55-1.3); MAGNESIUM 1.5 mg/dL (1.8-2.4); PHOSPHOROUS 2.8 mg/dL (2.5-4.9); POTASSIUM 3.2 mmol/L (3.5-5.1); TOT PROT 6.4 g/dl (6.4-8.2)
--- NOTE | 2019-06-09 12:44 | PN ---
Physical Exam: SUBJECTIVE: Patient seen and examined at bedside. pt states he has a headache and did not want to elaborate to history OBJECTIVE: Vital Signs Period Temp Pulse Resp BP Sys/Griffin Pulse Ox Last 24 Hr 98.4 F-99.0 F 64-85 18-20 102-127/63-73 95-98 GENERAL: The patient is awake, alert, and fully oriented, in no acute distress. HEAD: Normal with no signs of trauma. LUNGS: Breath sounds equal, clear to auscultation bilaterally, no accessory muscle use. HEART: Regular rate and rhythm, S1, S2 without murmur, rub or gallop. ABDOMEN: Soft, nontender, nondistended, normoactive bowel sounds, no guarding EXTREMITIES: 2+ pulses, warm, well-perfused, no edema. SKIN: Warm, dry, normal turgor, no rashes or lesions noted Laboratory Results - last 24 hr 06/09/19 06/09/19 09:03 09:03 WBC 4.8 RBC 4.66 Hgb 13.1 Hct 39.8 MCV 85.5 MCH 28.2 MCHC 33.0 RDW 15.6 Plt Count 251 MPV 8.0 Absolute Neuts (auto) 2.8 Neutrophils % 57.9 D Lymphocytes % 30.9 D Monocytes % 9.2 Eosinophils % 1.3 D Basophils % 0.7 Nucleated RBC % 0 Sodium 140 Potassium 3.2 L Chloride 105 Carbon Dioxide 31 Anion Gap 4 L BUN 6.7 L Creatinine 0.9 Est GFR (CKD-EPI)AfAm 111.83 Est GFR (CKD-EPI)NonAf 96.49 Random Glucose 113 H Calcium 8.6 Phosphorus 2.8 Magnesium 1.5 L Total Bilirubin 0.9 AST 29 ALT 27 Alkaline Phosphatase 98 Total Protein 6.4 Albumin 3.1 L Current Medications Acetaminophen (Tylenol -) 650 mg PO Q6H PRN PRN Reason: HEADACHE Last Admin: 06/08/19 19:40 Dose: 650 mg Lactated Ringer's (Lactated Ringers Solution) 1,000 ml in 1,000 mls @ 100 mls/ hr IV ASDIR DREW Last Admin: 06/09/19 00:58 Dose: 100 mls/hr Pantoprazole Sodium (Protonix -) 40 mg PO BID [facility] Last Admin: 06/09/19 09:14 Dose: 40 mg Thiamine HCl (Vitamin B1 Injection -) 200 mg IVPB DAILY DREW Last Admin: 06/09/19 09:14 Dose: 200 mg ASSESSMENT/PLAN: 54 yo M w/ PMH of GERD, PUD, and EtOH abuse presents with nausea , vomiting, diarrhea. Pt is admitted for evaluation of PUD Diarrhea, Nausea and blood tinged-Vomiting -c/w Protonix 40mg po BID - clear liquids, NPO after midnight -GI Consult (Dr. Young) - esophagram tomorrow -CT: A/P shows cholelithiasis, lower esophageal wall thickening to 1.7cm circumferentially (normally 0.03cm per discussion with Dr. Kidd), chronic pancreatitis, denies the presenc of overt varices, unable to rule out esophageal mass - will f/u EGD records from [facility] - H/H stable. no signs of acute bleed ROSS, improved. likely 2/2 dehydration - Cr today 0.9 EtoH Abuse -EtOH level on admission: 72 -No signs of active withdrawal -CIWA: 0 -Thiamine and Folic Acid Visit type - Emergency Visit Emergency Visit: No - New Patient This patient is new to me today: Yes Date on this admission: 06/09/19 - Critical Care Critical Care patient: No - Discharge Referral Physician Referral: Ruddy Young DO (GI) ATTENDING PHYSICIAN STATEMENT I saw and evaluated the patient. I reviewed the resident's note and discussed the case with the resident. I agree with the resident's findings and plan as documented. SUBJECTIVE: OBJECTIVE: ASSESSMENT AND PLAN:
[2019-06-09] MEDS: ACETAMINOPHEN 325 MG TABLET (FP) PO PRN (15:06)
--- NOTE | 2019-06-09 20:30 | PN ---
Teaching Attending Note Name of Resident: Sue Bruner ATTENDING PHYSICIAN STATEMENT I reviewed the resident's note and discussed the case with the resident. I agree with the resident's findings and plan as documented. SUBJECTIVE: Patient is feeling better with no acute distress Vital Signs Temperature 99.1 F 06/09/19 18:00 Pulse Rate 63 06/09/19 18:00 Respiratory Rate 18 06/09/19 18:00 Blood Pressure 141/77 06/09/19 18:00 O2 Sat by Pulse Oximetry (%) 98 06/09/19 09:00 GENERAL: The patient is awake, alert, and fully oriented, in no acute distress. HEAD: Normal with no signs of trauma. EYES: PERRL, extraocular movements intact, sclera anicteric, conjunctiva clear. ENT: Ears normal, oropharynx clear without exudates, moist mucous membranes. NECK: Trachea midline, full range of motion, supple. LUNGS: Breath sounds equal, clear to auscultation bilaterally, no wheezes, no crackles, no accessory muscle use. HEART: Regular rate and rhythm, S1, S2 without murmur, rub or gallop. ABDOMEN: Soft, nontender, mildly distended but soft, his norm since he drinks alcohol as per patient. +BS, no guarding, no rebound EXTREMITIES: 2+ pulses, warm, well-perfused, no edema. NEUROLOGICAL: Cranial nerves II through XII grossly intact. Normal speech, gait not observed. PSYCH: Normal mood, normal affect. SKIN: Warm, dry, normal turgor, no rashes or lesions noted CBCD WBC 4.8 K/mm3 (4.0-10.0) 06/09/19 09:03 RBC 4.66 M/mm3 (4.00-5.60) 06/09/19 09:03 Hgb 13.1 GM/dL (11.7-16.9) 06/09/19 09:03 Hct 39.8 % (35.4-49) 06/09/19 09:03 MCV 85.5 fl (80-96) 06/09/19 09:03 MCHC 33.0 g/dl (32.0-35.9) 06/09/19 09:03 RDW 15.6 % (11.9-15.9) 06/09/19 09:03 Plt Count 251 K/MM3 (134-434) 06/09/19 09:03 MPV 8.0 fl (7.5-11.1) 06/09/19 09:03 CMP Sodium 140 mmol/L (136-145) 06/09/19 09:03 Potassium 3.2 mmol/L (3.5-5.1) L 06/09/19 09:03 Chloride 105 mmol/L (98-107) 06/09/19 09:03 Carbon Dioxide 31 mmol/L (21-32) 06/09/19 09:03 Anion Gap 4 MMOL/L (8-16) L 06/09/19 09:03 BUN 6.7 mg/dL (7-18) L 06/09/19 09:03 Creatinine 0.9 mg/dL (0.55-1.3) 06/09/19 09:03 Random Glucose 113 mg/dL (74-106) H 06/09/19 09:03 Calcium 8.6 mg/dL (8.5-10.1) 06/09/19 09:03 Total Bilirubin 0.9 mg/dL (0.2-1) 06/09/19 09:03 AST 29 U/L (15-37) 06/09/19 09:03 ALT 27 U/L (13-61) 06/09/19 09:03 Alkaline Phosphatase 98 U/L (45-117) 06/09/19 09:03 Total Protein 6.4 g/dl (6.4-8.2) 06/09/19 09:03 Albumin 3.1 g/dl (3.4-5.0) L 06/09/19 09:03 CARDIAC ENZYMES Creatine Kinase 287 U/L (26-308) 06/07/19 17:45 Troponin I < 0.02 ng/ml (0.00-0.05) 06/07/19 17:45 Current Medications Generic Name Dose Route Start Last Admin Trade Name Freq PRN Reason Stop Dose Admin Lactated Ringer's 1,000 ml in 1,000 mls @ 100 mls/hr 06/07/19 23:00 06/07/19 23:20 Lactated Ringers Solution IV 100 mls/hr ASDIR DREW Administration Pantoprazole Sodium 40 mg 06/08/19 10:00 06/08/19 09:43 Protonix Iv IVPUSH 40 mg BID DREW Administration Thiamine HCl 200 mg 02/29/20 10:00 06/08/19 09:43 Vitamin B1 Injection - IVPB 200 mg DAILY DREW Administration Home Medications Medication Instructions Recorded Omeprazole 20 mg PO DAILY 06/07/19 CT: A/P shows cholelithiasis, lower esophageal wall thickening to 1.7cm circumferentially (normally 0.03cm per discussion with Dr. Kidd), chronic pancreatitis, Assessment and Plan; Pt. is a 54yom with PMHx of GERD, PUD, and EtOH abuse presents with nausea and vomiting for 1 day associated with 6 episodes of watery diarrhea. #Acute Diarrhea with Nausea and blood tinged-Vomiting:resolved , No further N/ V , no further bleed. on clears tolerating well. GI Consult (Dr. Young) .Discussed WITH Dr. Young , no EGD since patient was loaded wit Plavix in ED and aspirin , will have only Esophagram and can follow up with his own GI for further w/u to evaluate varicees. H/H monitor #ROSS: 0.9(2015)-->Cr. 2.7 --> 1.5-->0.9 today #EtoH Abuse; Thiamine/ Folic Acid/ f/u Utox #Low K+: replete #DVT Ppx: SCDs on clears now as per GI Esophagram on Monday , NPO after Midnight
[2019-06-09] MEDS: KCL 10 MEQ IVPB 10 MEQ/100 ML INFUS.BAG IVPB SCH (22:01)
[2019-06-10] MEDS: KCL 10 MEQ IVPB 10 MEQ/100 ML INFUS.BAG IVPB SCH ×5 (00:56→11:15)
[2019-06-10] MEDS: LACTATED RINGERS SOLUTION 1,000 ML/1,000 ML INFUS.BAG IV SCH ×2 (02:36→18:33)
[2019-06-10 07:59] LABS: BASO % 0.8 % (0-2.0); EOS % 2.3 % (0-4.5); HEMATOCRIT 37.9 % (35.4-49); HEMOGLOBIN 12.6 GM/dL (11.7-16.9); LYMPH % 36.9 % (8-40); MCH 28.4 pg (25.7-33.7); MCHC 33.1 g/dl (32.0-35.9); MEAN CELL VOLUME 85.6 fl (80-96); MONO % 8.9 % (3.8-10.2); NEUT % 51.1 % (42.8-82.8); PLATELET COUNT 230 K/MM3 (134-434); RBC 4.43 M/mm3 (4.00-5.60); RDW 15.2 % (11.9-15.9)
[2019-06-10 08:18] LABS: ALBUMIN 2.8 g/dl (3.4-5.0); BLOOD UREA NITROGEN 4.9 mg/dL (7-18); CALCIUM 8.1 mg/dL (8.5-10.1); CREATININE 0.8 mg/dL (0.55-1.3); MAGNESIUM 1.5 mg/dL (1.8-2.4); PHOSPHOROUS 3.1 mg/dL (2.5-4.9); TOT PROT 5.7 g/dl (6.4-8.2)
[2019-06-10] MEDS ORDERED: MAGNESIUM SULF 50% (8.12 MEQ/2 ML-1 GM VIAL) IVPB ONE (09:12)
[2019-06-10] MEDS: PANTOPRAZOLE 40 MG TABLET PO SCH ×2 (09:54→21:09)
[2019-06-10] MEDS: THIAMINE HCL 200 MG/2 ML VIAL IVPB SCH (11:32)
[2019-06-10] MEDS: POTASSIUM CHLORIDE TABS 20 MEQ TABLET.ER (FP) PO SCH (13:48)
--- NOTE | 2019-06-10 16:50 | PN ---
Physical Exam: SUBJECTIVE: Patient seen and examined at bedside. pt states he has the discomfort when he swallows. he denies n/v/d. denies abdominal pain OBJECTIVE: Vital Signs Period Temp Pulse Resp BP Sys/Griffin Pulse Ox Last 24 Hr 98.4 F-99.1 F 61-90 18-18 124-141/71-79 95-99 GENERAL: The patient is awake, alert, and fully oriented, in no acute distress. HEAD: Normal with no signs of trauma. LUNGS: Breath sounds equal, clear to auscultation bilaterally, no wheezes, no crackles, no accessory muscle use. HEART: Regular rate and rhythm, S1, S2 ABDOMEN: Soft, nontender, nondistended, normoactive bowel sounds, no guarding, no rebound EXTREMITIES: 2+ pulses, warm, well-perfused, no edema. . SKIN: Warm, dry, normal turgor, no rashes or lesions noted Laboratory Results - last 24 hr 06/10/19 06/10/19 07:30 07:30 WBC 5.0 RBC 4.43 Hgb 12.6 Hct 37.9 MCV 85.6 MCH 28.4 MCHC 33.1 RDW 15.2 Plt Count 230 MPV 8.0 Absolute Neuts (auto) 2.6 Neutrophils % 51.1 Lymphocytes % 36.9 Monocytes % 8.9 Eosinophils % 2.3 Basophils % 0.8 Nucleated RBC % 0 Sodium 143 Potassium 3.0 L Chloride 108 H Carbon Dioxide 31 Anion Gap 4 L BUN 4.9 L Creatinine 0.8 Est GFR (CKD-EPI)AfAm 117.38 Est GFR (CKD-EPI)NonAf 101.27 Random Glucose 90 Calcium 8.1 L Phosphorus 3.1 Magnesium 1.5 L Total Bilirubin 1.0 AST 31 ALT 27 Alkaline Phosphatase 85 Total Protein 5.7 L Albumin 2.8 L Current Medications Acetaminophen (Tylenol -) 650 mg PO Q6H PRN PRN Reason: HEADACHE Last Admin: 06/09/19 15:06 Dose: 650 mg Lactated Ringer's (Lactated Ringers Solution) 1,000 ml in 1,000 mls @ 100 mls/ hr IV ASDIR DREW Last Admin: 06/10/19 02:36 Dose: 100 mls/hr Pantoprazole Sodium (Protonix -) 40 mg PO BID [facility] Last Admin: 06/10/19 09:54 Dose: 40 mg Potassium Chloride (K-Dur -) 40 meq PO DAILY [facility] Stop: 06/12/19 10:01 Last Admin: 06/10/19 13:48 Dose: 40 meq Thiamine HCl (Vitamin B1 Injection -) 200 mg IVPB DAILY [facility] Last Admin: 06/10/19 11:32 Dose: 200 mg ASSESSMENT/PLAN: 54 yo M w/ PMH of GERD, PUD, and EtOH abuse presents with nausea , vomiting, diarrhea. Pt is admitted for evaluation of PUD Diarrhea, Nausea and blood tinged-Vomiting -c/w Protonix 40mg po BID - clear liquids, NPO after midnight -GI Consult (Dr. Young) - esophagram :Findings. The esophagus demonstrates normal swallowing mechanism and normal peristaltic activity. No abnormal dilatation of esophagus is noted and no stricture is seen. Results of Zenker's diverticulum, cricopharyngeal impression. Cervical spondylosis with anterior osteophytes at C45 C5-C6 No gastroesophageal reflux observed. No evidence of hiatal hernia. No definite esophageal ulceration is seen. Limited evaluation of the esophageal mucosa. Right lateral marginal osteophytes noted in the lower thoracic spine Normal flow barium into the stomach. The stomach distends with barium and demonstrates no abnormality of the contractibility or contour deformity. Thickened gastric folds without visible ulceration. Differential diagnosis: gastritis, Marcin- Helms syndrome, pancreatitis, lymphoma, pseudolymphoma among other conditions. No duodenal bulb ulcer is seen. The duodenal sweep is not widened. Normal mucosal pattern of opacified visualized small bowel. Impression. No evidence of hiatal hernia. No gastroesophageal reflux observed during examination. Thickened gastric folds -CT: A/P shows cholelithiasis, lower esophageal wall thickening to 1.7cm circumferentially (normally 0.03cm per discussion with Dr. Kidd), chronic pancreatitis, denies the presenc of overt varices, unable to rule out esophageal mass - will f/u EGD records from [facility] - H/H stable. no signs of acute bleed ROSS, improved. likely 2/2 dehydration - Cr today 0.9 EtoH Abuse -EtOH level on admission: 72 -No signs of active withdrawal -CIWA: 0 -Thiamine and Folic Acid Visit type - Emergency Visit Emergency Visit: No - New Patient This patient is new to me today: No - Critical Care Critical Care patient: No - Discharge Referral Referred to [facility] No ATTENDING PHYSICIAN STATEMENT I saw and evaluated the patient. I reviewed the resident's note and discussed the case with the resident. I agree with the resident's findings and plan as documented. SUBJECTIVE: OBJECTIVE: ASSESSMENT AND PLAN:
--- NOTE | 2019-06-10 18:37 | PN ---
Teaching Attending Note Name of Resident: Sue Bruner ATTENDING PHYSICIAN STATEMENT I saw and evaluated the patient. I reviewed the resident's note and discussed the case with the resident. I agree with the resident's findings and plan as documented. SUBJECTIVE: Patient is feeling better Vital Signs Temperature 99.0 F 06/10/19 14:00 Pulse Rate 90 06/10/19 14:00 Respiratory Rate 18 06/10/19 14:00 Blood Pressure 124/71 06/10/19 14:00 O2 Sat by Pulse Oximetry (%) 95 06/10/19 09:00 GENERAL: The patient is awake, alert, and fully oriented, in no acute distress. HEAD: Normal with no signs of trauma. EYES: PERRL, extraocular movements intact, sclera anicteric, conjunctiva clear. ENT: Ears normal, oropharynx clear without exudates, moist mucous membranes. NECK: Trachea midline, full range of motion, supple. LUNGS: Breath sounds equal, clear to auscultation bilaterally, no wheezes, no crackles, no accessory muscle use. HEART: Regular rate and rhythm, S1, S2 without murmur, rub or gallop. ABDOMEN: Soft, nontender, mildly distended but soft, his norm since he drinks alcohol as per patient. +BS, no guarding, no rebound EXTREMITIES: 2+ pulses, warm, well-perfused, no edema. NEUROLOGICAL: Cranial nerves II through XII grossly intact. Normal speech, gait not observed. PSYCH: Normal mood, normal affect. SKIN: Warm, dry, normal turgor, no rashes or lesions noted CBCD WBC 5.0 K/mm3 (4.0-10.0) 06/10/19 07:30 RBC 4.43 M/mm3 (4.00-5.60) 06/10/19 07:30 Hgb 12.6 GM/dL (11.7-16.9) 06/10/19 07:30 Hct 37.9 % (35.4-49) 06/10/19 07:30 MCV 85.6 fl (80-96) 06/10/19 07:30 MCHC 33.1 g/dl (32.0-35.9) 06/10/19 07:30 RDW 15.2 % (11.9-15.9) 06/10/19 07:30 Plt Count 230 K/MM3 (134-434) 06/10/19 07:30 MPV 8.0 fl (7.5-11.1) 06/10/19 07:30 CMP Sodium 143 mmol/L (136-145) 06/10/19 07:30 Potassium 3.0 mmol/L (3.5-5.1) L 06/10/19 07:30 Chloride 108 mmol/L (98-107) H 06/10/19 07:30 Carbon Dioxide 31 mmol/L (21-32) 06/10/19 07:30 Anion Gap 4 MMOL/L (8-16) L 06/10/19 07:30 BUN 4.9 mg/dL (7-18) L 06/10/19 07:30 Creatinine 0.8 mg/dL (0.55-1.3) 06/10/19 07:30 Random Glucose 90 mg/dL (74-106) 06/10/19 07:30 Calcium 8.1 mg/dL (8.5-10.1) L 06/10/19 07:30 Total Bilirubin 1.0 mg/dL (0.2-1) 06/10/19 07:30 AST 31 U/L (15-37) 06/10/19 07:30 ALT 27 U/L (13-61) 06/10/19 07:30 Alkaline Phosphatase 85 U/L (45-117) 06/10/19 07:30 Total Protein 5.7 g/dl (6.4-8.2) L 06/10/19 07:30 Albumin 2.8 g/dl (3.4-5.0) L 06/10/19 07:30 CARDIAC ENZYMES Creatine Kinase 287 U/L (26-308) 06/07/19 17:45 Troponin I < 0.02 ng/ml (0.00-0.05) 06/07/19 17:45 Current Medications Generic Name Dose Route Start Last Admin Trade Name Freq PRN Reason Stop Dose Admin Acetaminophen 650 mg 06/08/19 18:29 06/09/19 15:06 Tylenol - PO 650 mg Q6H PRN Administration HEADACHE Lactated Ringer's 1,000 ml in 1,000 mls @ 100 mls/hr 06/07/19 23:00 06/10/19 18:33 Lactated Ringers Solution IV 100 mls/hr ASDIR DREW Administration Pantoprazole Sodium 40 mg 06/08/19 22:00 06/10/19 09:54 Protonix - PO 40 mg BID DREW Administration Potassium Chloride 40 meq 06/10/19 13:15 06/10/19 13:48 K-Dur - PO 06/12/19 10:01 40 meq DAILY DREW Administration Thiamine HCl 200 mg 06/08/19 10:00 06/10/19 11:32 Vitamin B1 Injection - IVPB 200 mg DAILY DREW Administration Home Medications Medication Instructions Recorded Omeprazole 20 mg PO DAILY 06/07/19 Home Medications Medication Instructions Recorded Omeprazole 20 mg PO DAILY 06/07/19 CT: A/P shows cholelithiasis, lower esophageal wall thickening to 1.7cm circumferentially (normally 0.03cm per discussion with Dr. Kidd), chronic pancreatitis, Assessment and Plan; Pt. is a 54yom with PMHx of GERD, PUD, and EtOH abuse presents with nausea and vomiting for 1 day associated with 6 episodes of watery diarrhea. #Acute Diarrhea with Nausea and blood tinged-Vomiting: resolved , No further N/ V , no further bleed. on low fat diet for now tolerating well. will discuss with GI Consult (Dr. Young) .for possible EGD on Monday since patient was loaded with Plavix in ED and aspirin on the day of admission. Barium swallow(esophogram): thickened gastric folds without ulcer, ddx: Gastritis; ZES,pancreatiris, lymphoma, psuedolymphoma. will discuss with GI for possible EGD for monday. #ROSS: 0.9(2016)-->Cr. 2.7 --> 1.5-->0.9 today #EtoH Abuse; Thiamine/ Folic Acid/ f/u Utox #Low K+: replete #DVT Ppx: SCDs low fat diet
[2019-06-10] MEDS ORDERED: PT OWN MED DRAWER 7, Y5N ONE (22:55)
[2019-06-11] MEDS: LACTATED RINGERS SOLUTION 1,000 ML/1,000 ML INFUS.BAG IV SCH ×3 (06:32→23:10)
[2019-06-11 08:25] LABS: HEMATOCRIT 37.2 % (35.4-49); HEMOGLOBIN 12.2 GM/dL (11.7-16.9); MCH 27.9 pg (25.7-33.7); MCHC 32.7 g/dl (32.0-35.9); MEAN CELL VOLUME 85.4 fl (80-96); MEAN PLT VOLUME 8.1 fl (7.5-11.1); PLATELET COUNT 227 K/MM3 (134-434); RBC 4.36 M/mm3 (4.00-5.60); WHITE BLOOD COUNT 5.5 K/mm3 (4.0-10.0)
[2019-06-11 08:50] LABS: CALCIUM 8.2 mg/dL (8.5-10.1); CREATININE 0.7 mg/dL (0.55-1.3); MAGNESIUM 1.7 mg/dL (1.8-2.4); PHOSPHOROUS 2.9 mg/dL (2.5-4.9); POTASSIUM 3.2 mmol/L (3.5-5.1)
--- NOTE | 2019-06-11 08:51 | PN ---
Teaching Attending Note Name of Resident: Sue Bruner ATTENDING PHYSICIAN STATEMENT I saw and evaluated the patient. I reviewed the resident's note and discussed the case with the resident. I agree with the resident's findings and plan as documented. SUBJECTIVE: Patient feels better. Patient states that he needed to follow up with the GI but did not follow up. he wants to have EGD repeated. Vital Signs Temperature 98.4 F 06/11/19 06:00 Pulse Rate 67 06/11/19 06:00 Respiratory Rate 18 06/11/19 06:00 Blood Pressure 152/96 06/11/19 06:00 O2 Sat by Pulse Oximetry (%) 95 06/10/19 09:00 GENERAL: The patient is awake, alert, and fully oriented, in no acute distress. HEAD: Normal with no signs of trauma. EYES: PERRL, extraocular movements intact, sclera anicteric, conjunctiva clear. ENT: Ears normal, oropharynx clear without exudates, moist mucous membranes. NECK: Trachea midline, full range of motion, supple. LUNGS: Breath sounds equal, clear to auscultation bilaterally, no wheezes, no crackles, no accessory muscle use. HEART: Regular rate and rhythm, S1, S2 without murmur, rub or gallop. ABDOMEN: Soft, nontender, mildly distended but soft, his norm since he drinks alcohol as per patient. +BS, no guarding, no rebound EXTREMITIES: 2+ pulses, warm, well-perfused, no edema. NEUROLOGICAL: Cranial nerves II through XII grossly intact. Normal speech, gait not observed. PSYCH: Normal mood, normal affect. SKIN: Warm, dry, normal turgor, no rashes or lesions noted CBCD WBC 5.5 K/mm3 (4.0-10.0) 06/11/19 07:50 RBC 4.36 M/mm3 (4.00-5.60) 06/11/19 07:50 Hgb 12.2 GM/dL (11.7-16.9) 06/11/19 07:50 Hct 37.2 % (35.4-49) 06/11/19 07:50 MCV 85.4 fl (80-96) 06/11/19 07:50 MCHC 32.7 g/dl (32.0-35.9) 06/11/19 07:50 RDW 15.0 % (11.9-15.9) 06/11/19 07:50 Plt Count 227 K/MM3 (134-434) 06/11/19 07:50 MPV 8.1 fl (7.5-11.1) 06/11/19 07:50 CMP Sodium 143 mmol/L (136-145) 06/11/19 07:50 Potassium 3.2 mmol/L (3.5-5.1) L 06/11/19 07:50 Chloride 106 mmol/L (98-107) 06/11/19 07:50 Carbon Dioxide 30 mmol/L (21-32) 06/11/19 07:50 Anion Gap 6 MMOL/L (8-16) L 06/11/19 07:50 BUN 4.0 mg/dL (7-18) L 06/11/19 07:50 Creatinine 0.7 mg/dL (0.55-1.3) 06/11/19 07:50 Random Glucose 103 mg/dL (74-106) 06/11/19 07:50 Calcium 8.2 mg/dL (8.5-10.1) L 06/11/19 07:50 Total Bilirubin 1.0 mg/dL (0.2-1) 06/10/19 07:30 AST 31 U/L (15-37) 06/10/19 07:30 ALT 27 U/L (13-61) 06/10/19 07:30 Alkaline Phosphatase 85 U/L (45-117) 06/10/19 07:30 Total Protein 5.7 g/dl (6.4-8.2) L 06/10/19 07:30 Albumin 2.8 g/dl (3.4-5.0) L 06/10/19 07:30 CARDIAC ENZYMES Creatine Kinase 287 U/L (26-308) 06/07/19 17:45 Troponin I < 0.02 ng/ml (0.00-0.05) 06/07/19 17:45 Home Medications Medication Instructions Recorded Omeprazole 20 mg PO DAILY 06/07/19 Current Medications Generic Name Dose Route Start Last Admin Trade Name Freq PRN Reason Stop Dose Admin Acetaminophen 650 mg 06/08/19 18:29 06/09/19 15:06 Tylenol - PO 650 mg Q6H PRN Administration HEADACHE Folic Acid 1 mg 06/11/19 10:00 Folic Acid - PO DAILY DREW Lactated Ringer's 1,000 ml in 1,000 mls @ 100 mls/hr 06/07/19 23:00 06/11/19 06:32 Lactated Ringers Solution IV 100 mls/hr ASDIR DREW Administration Pantoprazole Sodium 40 mg 06/08/19 22:00 06/10/19 21:09 Protonix - PO 40 mg BID DREW Administration Potassium Chloride 40 meq 06/10/19 13:15 06/10/19 13:48 K-Dur - PO 06/12/19 10:01 40 meq DAILY DREW Administration Thiamine HCl 200 mg 06/08/19 10:00 06/10/19 11:32 Vitamin B1 Injection - IVPB 200 mg DAILY DREW Administration CT: A/P shows cholelithiasis, lower esophageal wall thickening to 1.7cm circumferentially (normally 0.03cm per discussion with Dr. Kidd), chronic pancreatitis, Assessment and Plan; Pt. is a 54yom with PMHx of GERD, PUD, and EtOH abuse presents with nausea and vomiting for 1 day associated with 6 episodes of watery diarrhea. #Acute Diarrhea with Nausea and blood tinged-Vomiting: resolved , No further N/ V , no further bleed. on low fat diet for now tolerating well. will discuss with GI Consult (Dr. Young) .discussed with Dr. Young patient having EGD on since patient was loaded with Plavix in ED and aspirin on the day of admission( will be off the plavix and aspirin for 5 days ) Barium swallow(esophogram): thickened gastric folds without ulcer, ddx: Gastritis; ZES,pancreatiris, lymphoma, psuedolymphoma. will discuss with GI for possible EGD for monday. #ROSS: 0.9(2016)-->Cr. 2.7 --> 1.5-->0.9 today #EtoH Abuse; Thiamine/ Folic Acid/ f/u Utox #Low K+: replete #DVT Ppx: SCDs low fat diet EGD 01/20/18: esohagitis, duodenal bulb ulcers. H. Pylori stool antigen + where patient was placed for 14 days on triple therapy( did not complete the treatment ).
[2019-06-11] MEDS: THIAMINE HCL 200 MG/2 ML VIAL IVPB SCH (09:01)
[2019-06-11] MEDS: FOLIC ACID 1 MG TABLET (FP) PO SCH (09:04)
[2019-06-11] MEDS: PANTOPRAZOLE 40 MG TABLET PO SCH ×2 (09:04→21:22)
[2019-06-11] MEDS: POTASSIUM CHLORIDE TABS 20 MEQ TABLET.ER (FP) PO SCH (09:04)
[2019-06-11] MEDS ORDERED: POTASSIUM CHLORIDE TABS 20 MEQ TABLET.ER (FP) PO ONE (11:54)
[2019-06-11] MEDS ORDERED: MAGNESIUM OXIDE 400 MG TABLET (FP) PO ONE (11:54)
--- NOTE | 2019-06-11 13:49 | PN ---
Progress Note (short form) - Note Progress Note: Thickened folds on UGIS Previous evaluation was at [facility]: 01/19/18: EGD 01/20/18: LA Grade D esohagitis, erythematous mucosa in body of stomach. duodenal bulb ulcers. oozing areas in duodenal bulb. H. Pylori stool antigen + and discharge summary states that he was started on triple therapy. Was supposed to follow-up in GI clinic. Did not appear that he did. Fasting gastrin level had also been sent. D/W Dr. Brown. Patient being treated for alcohol withdrawal and until for EGD given non-compliance. Had been loaded with ASA and Plavix Monday Plan tantatively for EGD as it would be 5 days off of Plavix. Will need cardio clearance prior to endoscopic evaluation given abnormal EKG (the reason why he was loaded with ASA and Plavix). Problem List - Problems (1) Nausea & vomiting Code(s): R11.2 - NAUSEA WITH VOMITING, UNSPECIFIED Qualifiers: Vomiting type: unspecified Vomiting Intractability: non-intractable Qualified Code(s): R11.2 - Nausea with vomiting, unspecified
--- NOTE | 2019-06-11 13:51 | PN ---
Physical Exam: SUBJECTIVE: Patient seen and examined at bedside. pt states he still feels some discomfort when he eats. no nausea, vomiting. passing gas OBJECTIVE: Vital Signs Period Temp Pulse Resp BP Sys/Griffin Pulse Ox Last 24 Hr 98.4 F-99.0 F 63-90 18-18 124-152/70-96 95 GENERAL: The patient is awake, alert, and fully oriented, in no acute distress. LUNGS: Breath sounds equal, clear to auscultation bilaterally, no wheezes, no crackles, no accessory muscle use. HEART: Regular rate and rhythm, S1, S2 without murmur, rub or gallop. ABDOMEN: Soft, nontender, nondistended, normoactive bowel sounds, no guarding EXTREMITIES: 2+ pulses, warm, well-perfused, no edema. NEUROLOGICAL: Cranial nerves II through XII grossly intact. Normal speech SKIN: Warm, dry, normal turgor, no rashes or lesions noted Laboratory Results - last 24 hr 06/11/19 06/11/19 07:50 07:50 WBC 5.5 RBC 4.36 Hgb 12.2 Hct 37.2 MCV 85.4 MCH 27.9 MCHC 32.7 RDW 15.0 Plt Count 227 MPV 8.1 Sodium 143 Potassium 3.2 L Chloride 106 Carbon Dioxide 30 Anion Gap 6 L BUN 4.0 L Creatinine 0.7 Est GFR (CKD-EPI)AfAm 124.00 Est GFR (CKD-EPI)NonAf 106.99 Random Glucose 103 Calcium 8.2 L Phosphorus 2.9 Magnesium 1.7 L Current Medications Acetaminophen (Tylenol -) 650 mg PO Q6H PRN PRN Reason: HEADACHE Last Admin: 06/09/19 15:06 Dose: 650 mg Folic Acid (Folic Acid -) 1 mg PO DAILY [facility] Last Admin: 06/11/19 09:04 Dose: 1 mg Lactated Ringer's (Lactated Ringers Solution) 1,000 ml in 1,000 mls @ 100 mls/ hr IV ASDIR [facility] Last Admin: 06/11/19 06:32 Dose: 100 mls/hr Pantoprazole Sodium (Protonix -) 40 mg PO BID [facility] Last Admin: 06/11/19 09:04 Dose: 40 mg Potassium Chloride (K-Dur -) 40 meq PO DAILY [facility] Stop: 06/12/19 10:01 Last Admin: 06/11/19 09:04 Dose: 40 meq Thiamine HCl (Vitamin B1 Injection -) 200 mg IVPB DAILY [facility]RE[facility] Last Admin: 06/11/19 09:01 Dose: 200 mg ASSESSMENT/PLAN: 54 yo M w/ PMH of GERD, PUD, and EtOH abuse presents with nausea , vomiting, diarrhea. Pt is admitted for evaluation of PUD Diarrhea, Nausea and blood tinged-Vomiting -c/w Protonix 40mg po BID -GI Consult (Dr. Young) - esophagram :Findings. The esophagus demonstrates normal swallowing mechanism and normal peristaltic activity. No abnormal dilatation of esophagus is noted and no stricture is seen. Results of Zenker's diverticulum, cricopharyngeal impression. Cervical spondylosis with anterior osteophytes at C45 C5-C6 No gastroesophageal reflux observed. No evidence of hiatal hernia. No definite esophageal ulceration is seen. Limited evaluation of the esophageal mucosa. Right lateral marginal osteophytes noted in the lower thoracic spine Normal flow barium into the stomach. The stomach distends with barium and demonstrates no abnormality of the contractibility or contour deformity. Thickened gastric folds without visible ulceration. Differential diagnosis: gastritis, Marcin- Helms syndrome, pancreatitis, lymphoma, pseudolymphoma among other conditions. No duodenal bulb ulcer is seen. The duodenal sweep is not widened. Normal mucosal pattern of opacified visualized small bowel. Impression. No evidence of hiatal hernia. No gastroesophageal reflux observed during examination. Thickened gastric folds -CT: A/P shows cholelithiasis, lower esophageal wall thickening to 1.7cm circumferentially (normally 0.03cm per discussion with Dr. Kidd), chronic pancreatitis, denies the presenc of overt varices, unable to rule out esophageal mass -records from [facility] show pt has a hx of H pylori, ZE syndrome - H/H stable. no signs of acute bleed - will plan for EGD pending Cardio optimization ROSS, improved. likely 2/2 dehydration - Cr today 0.[address]-T changes -pending Echo EtoH Abuse -EtOH level on admission: 72 -No signs of active withdrawal -CIWA: 0 -Thiamine and Folic Acid Visit type - Emergency Visit Emergency Visit: No - New Patient This patient is new to me today: No - Critical Care Critical Care patient: No - Discharge Referral Physician Referral: Christopher DiGiorno, DO (GI) ATTENDING PHYSICIAN STATEMENT I saw and evaluated the patient. I reviewed the resident's note and discussed the case with the resident. I agree with the resident's findings and plan as documented. SUBJECTIVE: OBJECTIVE: ASSESSMENT AND PLAN:
--- NOTE | 2019-06-11 14:34 | CON.CARD ---
Consult Consult Specialty:: cardiology Reason for Consultation:: cardiac clearace (EGD); EKG abnormality - History of Present Illness Chief Complaint: Pt A&Ox3; no chest pain or dyspnea. History of Present Illness: 54 year old black man with a PMH of GERD, Headaches, PUD, alcohol dependence, now presenting with epigastric burning pain, nausea, vomiting since yesterday. his last drink of 6 beers was about 1 day ago, today woke up with aching diffuse AP. He reports similar prior episodes after drinking alcohol. He reports approx 3-6 beers daily. Denies illicit drugs. He reports "constant" non-bilious vomiting throughout the course of the day, with blood tinged vomitus during his last 2 episodes of vomiting. He denies any abdominal surgery. He denies any chest pain, sob, fatigue, weakness. He has not attempted po food or drink since the onset of his symptoms. He has no family history of cardiac disease/NC/sudden . Leg cramps have also been bothering him for long time, but no leg pain or swelling.. no weakness or paresthesias. 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 He walks short distances frequently, and at times takes stairs. Denies chest pain or dyspnea. No cigarettes. His is at bedside. - History Source History Provided By: Medical Record Limitations to Obtaining History: Poor Historian - Past Medical History Cardio/Vascular: Yes: HTN Gastrointestinal: Yes: Other (PUD) - Past Surgical History Additional Surgical History: Denies - Alcohol/Substance Use Hx Alcohol Use: Yes - Smoking History Smoking history: Never smoked Have you smoked in the past 12 months: No - Social History Usual Living Arrangement: Other (With fiance) ADL: Independent History of Recent Travel: No Home Medications - Allergies Allergies/Adverse Reactions: Allergies Allergy/AdvReac Type Severity Reaction Status Date / Time shellfish derived Allergy Severe Swelling Verified 06/07/19 16:53 No Known Drug Allergies Allergy Verified 06/07/19 16:53 - Home Medications Home Medications: Ambulatory Orders Omeprazole 20 mg PO DAILY 06/07/19 Vital Signs: Vital Signs Temperature 98.7 F 06/11/19 09:55 Pulse Rate 74 06/11/19 09:55 Respiratory Rate 18 06/11/19 09:55 Blood Pressure 128/70 06/11/19 09:55 O2 Sat by Pulse Oximetry (%) 95 06/11/19 09:00 - Other Data Labs, Other Data: CBC, BMP 06/11/19 07:50 06/11/19 07:50 Problem List - Problems (1) Alcoholism /alcohol abuse Assessment/Plan: detox regimen. Pt knows he should stop alcohol (and did, for 90 days, with help of Antabuse), but says it is almost impossible. Code(s): F10.20 - ALCOHOL DEPENDENCE, UNCOMPLICATED (2) Abdominal pain Code(s): R10.9 - UNSPECIFIED ABDOMINAL PAIN (3) Abnormal EKG Assessment/Plan: sinus tachycardia; ?septal infarct; nonspecific STT changes. TNI < 0.02. F/u ECHO for LVEF, wall motion, valve status. Code(s): R94.31 - ABNORMAL ELECTROCARDIOGRAM [ECG] [EKG] (4) Nausea & vomiting Assessment/Plan: GI w/u in progress. From a cardiac perspective, there are no absolute contraindications for Mr. Orona do undergo GI procedures (EGD; Colonoscopy). Code(s): R11.2 - NAUSEA WITH VOMITING, UNSPECIFIED Qualifiers: Vomiting type: unspecified Vomiting Intractability: non-intractable Qualified Code(s): R11.2 - Nausea with vomiting, unspecified (5) Headache Code(s): R51 - HEADACHE (6) Depression Code(s): F32.9 - MAJOR DEPRESSIVE DISORDER, SINGLE EPISODE, UNSPECIFIED Qualifiers: Depression Type: unspecified Qualified Code(s): F32.9 - Major depressive disorder, single episode, unspecified (7) GERD (gastroesophageal reflux disease) Code(s): K21.9 - GASTRO-ESOPHAGEAL REFLUX DISEASE WITHOUT ESOPHAGITIS Qualifiers: Esophagitis presence: without esophagitis Qualified Code(s): K21.9 - Gastro -esophageal reflux disease without esophagitis (8) Hyperlipidemia Assessment/Plan: f/u lipid profile. Code(s): E78.5 - HYPERLIPIDEMIA, UNSPECIFIED (9) Hypokalemia Assessment/Plan: Replete, and keep K 4.0-4.5 Keep Mg 2.0-2.4 Keep PO4 2.5-4.9. Code(s): E87.6 - HYPOKALEMIA (10) [place] cardiac risk >20% in next 10 years Assessment/Plan: Consider stress MIBI as outpaient. Code(s): Z91.89 - OTH PERSONAL RISK FACTORS, NOT ELSEWHERE CLASSIFIED
--- NOTE | 2019-06-11 15:09 | EKG ---
Test Reason : Blood Pressure : / mmHG Vent. Rate : 069 BPM Atrial Rate : 069 BPM P-R Int : 166 ms QRS Dur : 092 ms QT Int : 398 ms P-R-T Axes : 057 033 021 degrees QTc Int : 426 ms NORMAL SINUS RHYTHM NORMAL ECG WHEN COMPARED WITH ECG OF 07-JUN-2019 23:17, ST NO LONGER DEPRESSED IN ANTERIOR LEADS NONSPECIFIC T WAVE ABNORMALITY, IMPROVED IN INFERIOR LEADS T WAVE INVERSION NO LONGER EVIDENT IN ANTEROLATERAL LEADS Confirmed by MD FADI, KAILEY ([id number]) on 06/11/2019 3:09:18 PM Referred By: Bharati GARCIA Confirmed By:KAILEY APONTE MD
[2019-06-11 21:40] LABS: CHOLESTEROL 212 mg/dL (50-200); HDL CHOLESTEROL 54 mg/dL (40-60); LDL CHOLESTEROL (ONLY SJRH) 129 mg/dL (5-100); TRIGLYCERIDES 193 mg/dL (0-150)
[2019-06-12 08:25] LABS: BLOOD UREA NITROGEN 3.9 mg/dL (7-18); CALCIUM 8.8 mg/dL (8.5-10.1); CREATININE 0.8 mg/dL (0.55-1.3); MAGNESIUM 1.6 mg/dL (1.8-2.4); PHOSPHOROUS 3.2 mg/dL (2.5-4.9); POTASSIUM 3.6 mmol/L (3.5-5.1)
[2019-06-12] MEDS ORDERED: MAGNESIUM SULF 50% (8.12 MEQ/2 ML-1 GM VIAL) IVPB ONE (09:21)
[2019-06-12] MEDS: FOLIC ACID 1 MG TABLET (FP) PO SCH (09:23)
[2019-06-12] MEDS: ACETAMINOPHEN 325 MG TABLET (FP) PO PRN (09:23)
[2019-06-12] MEDS: POTASSIUM CHLORIDE TABS 20 MEQ TABLET.ER (FP) PO SCH (09:23)
[2019-06-12] MEDS: PANTOPRAZOLE 40 MG TABLET PO SCH ×2 (09:23→21:21)
[2019-06-12] MEDS: THIAMINE HCL 200 MG/2 ML VIAL IVPB SCH (09:24)
[2019-06-12] MEDS: POLYETHYLENE GLYCOL 3350 119 GM BTL PO SCH ×2 (09:43→10:37)
--- NOTE | 2019-06-12 10:51 | EKG ---
Test Reason : Blood Pressure : / mmHG Vent. Rate : 099 BPM Atrial Rate : 099 BPM P-R Int : 154 ms QRS Dur : 080 ms QT Int : 350 ms P-R-T Axes : 053 038 -49 degrees QTc Int : 449 ms NORMAL SINUS RHYTHM ABNORMAL ECG WHEN COMPARED WITH ECG OF 07-JUN-2019 19:40, CRITERIA FOR SEPTAL INFARCT ARE NO LONGER PRESENT Confirmed by Jona Godfrey ([id number]) on 06/12/2019 10:50:39 AM Referred By: Confirmed By:Jona Godfrey
--- NOTE | 2019-06-12 12:02 | ECHO ---
Version: 1 Name: SUKUMAR SEYMOUR Exam: Adult Echocardiogram Study Date: 06/12/2019, 11:01 AM Age: 54 Years MMode/2D Measurements & Calculations IVSd: 1.10 cm LVIDs: 3.0 cm LVIDd: 4.3 cm LVPWd: 0.85 cm ACS: 2.15 cm Ao root diam: 3.3 cm LVOT diam: 1.95 cm LA dimension: 3.3 cm Doppler Measurements & Calculations MV E max sadi: 96.3 cm/sec Med E/e': 13.9 MV A max sadi: 80.0 cm/sec Med Peak E' Sadi: 6.9 cm/sec MV E/A: 1.20 Lat E/e': 7.1 Lat Peak E' Sadi: 13.6 cm/sec MR max P.6 mmHg Ao max P.7 mmHg NIKOLAI(I,D): 2.30 cm Ao mean P.1 mmHg LV V1 mean: 69.0 cm/sec Ao V2 max: 108.6 cm/sec LV V1 mean P.04 mmHg TR max sadi: 217.2 cm/sec TR max P.9 mmHg Left Ventricle The left ventricular size, thickness and function are normal. Ejection Fraction = 60%. The transmitr al spectral Doppler flow pattern is normal for age. Right Ventricle The right ventricle is normal in size and function. Atria Normal left and right atrial size and function. Mitral Valve The mitral valve leaflets appear thickened, but open well. There is no mitral regurgitation noted. Tricuspid Valve The tricuspid valve is normal in structure and function. No tricuspid regurgitation. Aortic Valve There is mild to moderate aortic valve thickening. Pulmonic Valve The pulmonic valve is not well seen, but is grossly normal. Great Vessels The aortic root is normal size. Normal aortic arch, descending and ascending aorta. Pericardium/Pleura There is no pericardial effusion. Summary Statements The left ventricular size, thickness and function are normal Ejection Fraction = 60%. The transmitral spectral Doppler flow pattern is normal for age. The right ventricle is normal in size and function. Normal left and right atrial size and function. The mitral valve leaflets appear thickened, but open well. There is no mitral regurgitation noted. The tricuspid valve is normal in structure and function. No tricuspid regurgitation. There is mild to moderate aortic valve thickening. The pulmonic valve is not well seen, but is grossly normal. The aortic root is normal size. Normal aortic arch, descending and ascending aorta There is no pericardial effusion. Eliel Valdivia 06/12/2019, 12:01 PM Ordering Physician: Tomy Myers Performed By: Rowan Falcon
--- NOTE | 2019-06-12 16:41 | PN.GI ---
GI Progress Note Subjective: Pt seen/examined at bedside, feeling better, tolerating meals, denies further nausea or vomiting. Denies abdominal pain currently. ECHO revealing EF 60%. - Objective Vital Signs: Vital Signs Temperature 98.2 F 06/12/19 14:00 Pulse Rate 68 06/12/19 14:00 Respiratory Rate 18 06/12/19 14:00 Blood Pressure 125/83 06/12/19 14:00 O2 Sat by Pulse Oximetry (%) 100 06/12/19 09:00 Constitutional: Well Nourished, No Distress, Calm Cardiovascular: Yes: WNL, Regular Rate and Rhythm Respiratory: Yes: WNL, Regular, CTA Bilaterally ...Palpate: Yes: Other (Abd soft, nt, nd) Labs: CBC, BMP 06/11/19 07:50 06/12/19 07:30 Problem List - Problems (1) Nausea & vomiting Assessment/Plan: 54yo male with nausea and vomiting, now resolved s/p UGI series revealing thickened gastric folds. Prior EGD in 01/2018 revealing LA grade D esophagitis and duodenal bulb ulcers. Pt has been off plavix for 5 days, cardio note reviewed. -Plan for EGD tomorrow to further evaluate -Keep NPOpMN -Continue PPI Code(s): R11.2 - NAUSEA WITH VOMITING, UNSPECIFIED Qualifiers: Vomiting type: unspecified Vomiting Intractability: non-intractable Qualified Code(s): R11.2 - Nausea with vomiting, unspecified
--- NOTE | 2019-06-12 19:00 | PN ---
Physical Exam: SUBJECTIVE: Patient seen and examined at bedside. pt has no acute complaints OBJECTIVE: Vital Signs Period Temp Pulse Resp BP Sys/Griffin Pulse Ox Last 24 Hr 98.2 F-98.8 F 68-69 18-18 123-161/81-105 100 GENERAL: The patient is awake, alert, and fully oriented, in no acute distress. HEAD: Normal with no signs of trauma. LUNGS: Breath sounds equal, clear to auscultation bilaterally, no wheezes, no crackles, no accessory muscle use. HEART: Regular rate and rhythm, S1, S2 without murmur, rub or gallop. ABDOMEN: Soft, nontender, nondistended, normoactive bowel sounds, no guarding,reducible umbilical hernia EXTREMITIES: 2+ pulses, warm, well-perfused, no edema. SKIN: Warm, dry, normal turgor, no rashes or lesions noted Laboratory Results - last 24 hr 06/11/19 06/11/19 06/11/19 20:50 20:50 20:50 Sodium Potassium Chloride Carbon Dioxide Anion Gap BUN Creatinine Est GFR (CKD-EPI)AfAm Est GFR (CKD-EPI)NonAf Random Glucose Hemoglobin A1c % 5.4 Calcium Phosphorus Magnesium Triglycerides 193 H Cholesterol 212 H Total LDL Cholesterol 129 H HDL Cholesterol 54 TSH 1.67 06/12/19 07:30 Sodium 144 Potassium 3.6 Chloride 107 Carbon Dioxide 33 H Anion Gap 5 L BUN 3.9 L Creatinine 0.8 Est GFR (CKD-EPI)AfAm 117.38 Est GFR (CKD-EPI)NonAf 101.27 Random Glucose 96 Hemoglobin A1c % Calcium 8.8 Phosphorus 3.2 Magnesium 1.6 L Triglycerides Cholesterol Total LDL Cholesterol HDL Cholesterol TSH Current Medications Acetaminophen (Tylenol -) 650 mg PO Q6H PRN PRN Reason: HEADACHE Last Admin: 06/12/19 09:23 Dose: 650 mg Docusate Sodium (Colace -) 200 mg PO HS DREW Folic Acid (Folic Acid -) 1 mg PO DAILY [facility] Last Admin: 06/12/19 09:23 Dose: 1 mg Pantoprazole Sodium (Protonix -) 40 mg PO BID DREW Last Admin: 06/12/19 09:23 Dose: 40 mg Polyethylene Glycol (Miralax (For Daily Use) -) 17 gm PO DAILY [facility] Last Admin: 06/12/19 10:37 Dose: Not Given Senna (Senna -) 2 tab PO [facility] Thiamine HCl (Vitamin B1 Injection -) 200 mg IVPB DAILY [facility] Last Admin: 06/12/19 09:24 Dose: 200 mg ASSESSMENT/PLAN: 54 yo M w/ PMH of GERD, PUD,Marcin Ellisons, hx of h pylori and EtOH abuse presents with nausea , vomiting, diarrhea. Pt is admitted for evaluation of PUD Diarrhea, Nausea and blood tinged-Vomiting -c/w Protonix 40mg po BID -GI Consult (Dr. Gooden) - esophagram :Findings. The esophagus demonstrates normal swallowing mechanism and normal peristaltic activity. No abnormal dilatation of esophagus is noted and no stricture is seen. Results of Zenker's diverticulum, cricopharyngeal impression. Cervical spondylosis with anterior osteophytes at C45 C5-C6 No gastroesophageal reflux observed. No evidence of hiatal hernia. No definite esophageal ulceration is seen. Limited evaluation of the esophageal mucosa. Right lateral marginal osteophytes noted in the lower thoracic spine Normal flow barium into the stomach. The stomach distends with barium and demonstrates no abnormality of the contractibility or contour deformity. Thickened gastric folds without visible ulceration. Differential diagnosis: gastritis, Marcin-Helms syndrome, pancreatitis, lymphoma, pseudolymphoma among other conditions. No duodenal bulb ulcer is seen. The duodenal sweep is not widened. Normal mucosal pattern of opacified visualized small bowel. Impression. No evidence of hiatal hernia. No gastroesophageal reflux observed during examination. Thickened gastric folds -CT: A/P shows cholelithiasis, lower esophageal wall thickening to 1.7cm circumferentially (normally 0.03cm per discussion with Dr. Kidd), chronic pancreatitis, denies the presenc of overt varices, unable to rule out esophageal mass -records from [facility] show pt has a hx of H pylori, ZE syndrome - H/H stable. no signs of acute bleed - will plan for EGD tomorrow npo after midnight ROSS, improved. likely 2/2 dehydration - Cr today 0.[address]-T changes -pending Echo - Echo EF 60% - consider stress testing outpt EtoH Abuse -EtOH level on admission: 72 -No signs of active withdrawal -CIWA: 0 -Thiamine and Folic Acid Visit type - Emergency Visit Emergency Visit: No - New Patient This patient is new to me today: No - Critical Care Critical Care patient: No - Discharge Referral Physician Referral: Ruddy Gooden DO (GI) ATTENDING PHYSICIAN STATEMENT I saw and evaluated the patient. I reviewed the resident's note and discussed the case with the resident. I agree with the resident's findings and plan as documented. SUBJECTIVE: OBJECTIVE: ASSESSMENT AND PLAN:
--- NOTE | 2019-06-12 19:10 | PN ---
Teaching Attending Note Name of Resident: Sue Bruner ATTENDING PHYSICIAN STATEMENT I saw and evaluated the patient. I reviewed the resident's note and discussed the case with the resident. I agree with the resident's findings and plan as documented. SUBJECTIVE: no pain , no fever or chills, no N/V . OBJECTIVE: NAD CV : RRR Lungs: CTAB Ext : No edema or erythema Abd: soft, NT, ND , NL BS A/P Pt. is a 54yom with PMHx of GERD, PUD, Helicobacter Pylori , and EtOH abuse presents with nausea and vomiting/V/d. 1- N/V : resolved. Diarrhea resolved - for EGD tomorrow - NPO after MN - cont protonix 2- Abnormal EKg : sinus tachy with non specific ST changes. echo reviwed. card note reviwed. - need stress test as out pt as 10 yr risk for CAD > 20 % 3- ROSS : resolved 4- Hypomagnesemia : replete 5- ETOH use: no signs of withdrawal 6-DVT PX : start heparin sq
[2019-06-12] MEDS ORDERED: HEPARIN NA (PORCINE) 5,000 UNITS/ML 1ML VIAL SQ ONE (19:11)
[2019-06-12] MEDS ORDERED: DOCUSATE SODIUM 100 MG CAPSULE (FP) PO SCH (22:00)
[2019-06-12] MEDS ORDERED: SENNOSIDES 8.6MG TABLET (FP) PO SCH (22:00)
[2019-06-13] MEDS: PANTOPRAZOLE 40 MG TABLET PO SCH (09:09)
[2019-06-13] MEDS: FOLIC ACID 1 MG TABLET (FP) PO SCH (09:10)
[2019-06-13] MEDS: POLYETHYLENE GLYCOL 3350 119 GM BTL PO SCH (09:11)
[2019-06-13] MEDS: THIAMINE HCL 200 MG/2 ML VIAL IVPB SCH (10:00)
[2019-06-13] MEDS ORDERED: PROPOFOL 20 ML ONE ×3 (12:29)
[2019-06-13] MEDS ORDERED: LIDOCAINE HCL 2% 100 MG/5 ML DISP.SYRIN ONE (12:30)
[2019-06-13] MEDS ORDERED: LIDOCAINE HCL/PF 2% SDV 5ML VIAL ONE (12:31)
--- NOTE | 2019-06-13 13:02 | PN ---
Progress Note (short form) - Note Progress Note: EGD complete. report left in procedural section of physical chart and will be scanned into [employer] Problem List - Problems (1) Nausea & vomiting Code(s): R11.2 - NAUSEA WITH VOMITING, UNSPECIFIED Qualifiers: Vomiting type: unspecified Vomiting Intractability: non-intractable Qualified Code(s): R11.2 - Nausea with vomiting, unspecified
[2019-06-13] MEDS ORDERED: HYDROCHLOROTHIAZIDE 12.5 MG CAPSULE (FP) PO SCH (14:30)
--- NOTE | 2019-06-13 17:49 | PN ---
Teaching Attending Note Name of Resident: Sue Bruner ATTENDING PHYSICIAN STATEMENT I saw and evaluated the patient. I reviewed the resident's note and discussed the case with the resident. I agree with the resident's findings and plan as documented. SUBJECTIVE: seen around 8 am No fever or chills. No HALLMAN . No N/V . No abd pain OBJECTIVE: NAD CV: RRR Lungs: CTAB Ext: No edema or erythema Abd: soft, NT, ND , NL BS A/P Pt. is a 54yom with PMHx of GERD, PUD, Helicobacter Pylori , and EtOH abuse presents with nausea and vomiting/V/d. 1-gastritis , and esophagitis . EGD done today , Bxs were taken . gastrin level added to am labs cont protonix for 8 weeks - f/u with GI for results of Bx and gastrin level 2- Abnormal EKg : sinus tachy with non specific ST changes. - need stress test as out pt as 10 yr risk for CAD > [address] %. refer to Dr. Zazueta 3- ROSS : resolved 4- Hypomagnesemia : refused blood work this am 5- HTN: start HCTZ . BP was high just after procedure ad it improved. BP has been elevated here Needs BMP in 1 week 6- HLP: start statin. DC home today.
[2019-06-13 18:22] VITALS: BP 154/88; PULSE 59; TEMP 98.8
--- NOTE | 2019-06-13 20:20 | DS ---
Physical Exam: SUBJECTIVE: Patient seen and examined OBJECTIVE: Vital Signs Period Temp Pulse Resp BP Sys/Griffin Pulse Ox Last 24 Hr 97.5 F-98.8 F 50-83 16-19 130-187/81-108 98-100 PHYSICAL EXAM GENERAL: The patient is awake, alert, and fully oriented, in no acute distress. HEAD: Normal with no signs of trauma. EYES: PERRL, extraocular movements intact, sclera anicteric, conjunctiva clear. ENT: Ears normal, nares patent, oropharynx clear without exudates, moist mucous membranes. NECK: Trachea midline, full range of motion, supple. LUNGS: Breath sounds equal, clear to auscultation bilaterally, no wheezes, no crackles, no accessory muscle use. HEART: Regular rate and rhythm, S1, S2 without murmur, rub or gallop. ABDOMEN: Soft, nontender, nondistended, normoactive bowel sounds, no guarding, no rebound, no hepatosplenomegaly, no masses. EXTREMITIES: 2+ pulses, warm, well-perfused, no edema. NEUROLOGICAL: Cranial nerves II through XII grossly intact. Normal speech, gait not observed. PSYCH: Normal mood, normal affect. SKIN: Warm, dry, normal turgor, no rashes or lesions noted. LABS HOSPITAL COURSE: Date of Admission:06/07/19 Date of Discharge: 06/13/19 Discharge Summary Problems reviewed: Yes Reason For Visit: ACUTE KIDNEY INJURY Condition: Improved - Instructions Diet, Activity, Other Instructions: You came into the hospital for chest pain. Your initial EKG had some changes that looked abnormal, but your cardiac enzymes were negative. You had an echocardiogram of your heart showing good heart function although it would be best for you to follow up with your corporate trust officer for a stress test. You also had an Xray of your stomach and esophagus which showed some thickening in your stomach. While you were in the hospital, your bloodwork shows that you have high cholesterol, it is recommended that you start a medication called a statin (Rosuvastatin 10mg)Needs to start statin. You should follow up with your primary care physician as you will need repeat bloodwork for your liver. If you experience muscle aches, please alert your physician and discontinue this medication. Please take pantoprazole 40 mg ONCE a Day Please take Rosuvastatin 10 mg ONCe a Day i n evening Please take Hydrochlorothiazide 12.5mg ONCE a Day Please take Multivitamins daily, please take folic acid and thiamine daily Please do not drink alcohol. This can further damage your gastroesophageal tract and can cause many health problems. Please follow up with your primary care physician in 1 week to monitor your improvement Please follow up with your Snuff Grinder, The contact information for Dr. Gooden is provided for you if you would like to follow up with him. Please follow up with a corporate trust officer , Dr. Myers, to schedule a stress test. If you have any new, worsening, or concerning symptoms please return to the ED or call 911. Biopsy results from your Esophagus and stomach will be given to you when you see dr. Gooden. there is also a gastrin level ( production of the stomach ) , still pending results at this time. this needs to be followed with Dr. Gooden You need blood work with your PCP in 1 week ( BMP ) as theblood pressure medication can cause low electrolytes Referrals: Kj Montanez MD [Primary Care Provider] - 1 Week Vipul Gooden DO [Staff Physician] - 1 Week Tomy Myers MD [Staff Physician] - 2 Weeks Disposition: HOME - Home Medications Comprehensive Discharge Medication List: Ambulatory Orders Folic Acid/Multivit-Min/Lutein [Multi-Vitamin Gummies] 1 each PO DAILY #30 tab.chew 06/13/19 Hydrochlorothiazide [Hctz -] 12.5 mg PO DAILY #30 cap 06/13/19 Pantoprazole Sodium [Protonix -] 40 mg PO DAILY #30 tablet.ec 06/13/19 Rosuvastatin Calcium [Crestor] 10 mg PO DAILY #30 tablet 06/13/19 Thiamine HCl [B-1] 100 mg PO DAILY #30 tablet 06/13/19 - Discharge Referral Referred to [facility] Med P.C[facility] No Physician Referral: Ruddy Gooden DO (GI) ATTENDING PHYSICIAN STATEMENT I saw and evaluated the patient. I reviewed the resident's note and discussed the case with the resident. I agree with the resident's findings and plan as documented. SUBJECTIVE: OBJECTIVE: ASSESSMENT AND PLAN:
[2019-06-13] MEDS ORDERED: HEPARIN NA (PORCINE) 5,000 UNITS/ML 1ML VIAL SQ SCH (22:00)
[2019-06-14] MEDS ORDERED: PANTOPRAZOLE 40 MG TABLET PO SCH (10:00)
--- NOTE | 2019-06-14 18:16 | PATH ---
Surgical Pathology Report Patient Name: SUKUMAR SEYMOUR Med. Rec. #: [id number] /Age/Gender: 1965 (Age: 54) / M Account: [id number] Location: [address] [place] [address] Taken: 06/13/2019 Received: 06/13/2019 Reported: 06/14/2019 Physicians: Ruddy Gooden D.O. Specimen(s) Received A: DUODENUM B: STOMACH, BODY Clinical History Vomiting Postoperative diagnosis: Esophagitis, gastritis Final Diagnosis A. DUODENUM, BIOPSY: DUODENAL MUCOSA WITHOUT SIGNIFICANT PATHOLOGIC FINDINGS. B. STOMACH, BODY, BIOPSY: GASTRIC BODY MUCOSA WITH MILD CHRONIC GASTRITIS AND FEW DILATED GLANDS. IMMUNOHISTOCHEMICAL STAIN FOR H. PYLORI IS NEGATIVE. Positive and negative controls (internal if applicable) show appropriate results. Electronically Signed Rose Ward M.D. Gross Description A. Received in formalin, labeled "duodenal biopsy" are 3 grigsby, irregular portions of soft tissue ranging from 0.1-0.3 cm. in greatest dimension. The specimens are submitted in toto in one cassette. B. Received in formalin, labeled "body of stomach" are 5 grigsby, irregular portions of soft tissue ranging from 0.1-0.5 cm. in greatest dimension. The specimens are submitted in toto in one cassette. /06/13/2019 [facility]/06/13/2019
== END 2019-06-13 18:43 | disposition home or self-care (01) | DRG 682 ==
LOC: JER 16:39 → JERBED 21:36 → J5S 06-08 02:55
PROVIDERS: ADMIT Internal Medicine; ATTEND Internal Medicine
PROC: 0DD68ZX Extraction of Stomach, Via Natural or Artificial Opening Endoscopic, Diagnostic (ICD-10-PCS; principal; 2019-06-13 12:30)
DX: N17.9 Acute kidney failure, unspecified (principal); K29.21 Alcoholic gastritis with bleeding; K21.0 Gastro-esophageal reflux disease with esophagitis; R51 Headache; R00.0 Tachycardia, unspecified; K80.20 Calculus of gallbladder without cholecystitis without obstruction; E86.0 Dehydration; E87.6 Hypokalemia; F10.20 Alcohol dependence, uncomplicated; E83.42 Hypomagnesemia; F32.9 Major depressive disorder, single episode, unspecified; R94.31 Abnormal electrocardiogram [ECG] [EKG]; Z87.11 Personal history of peptic ulcer disease; I10 Essential (primary) hypertension
CPT/HCPCS: 36415; 71045-TC-FY; 74176-TC; 74220-TC-FY; 76700-TC; 80048; 80053; 80061; 81003; 82150; 82550; 82553; 82941; 83036; 83690; 83721; 83735; 84100; 84443; 84484; 85025; 85027; 87086; 88305-TC; 93005; 93010; 93306-TC; 99285-25; J1644; J7030

== ENCOUNTER 2019-12-07 11:07 | Emergency (ER) | payer OTHER ==
[2019-12-07] MEDS ORDERED: SODIUM CHLORIDE 0.9% 1000 ML INFUS.BAG IV ONE (11:21)
[2019-12-07 11:28] VITALS: BP 114/80; PULSE 92; TEMP 98.3; BMI 27.6
--- NOTE | 2019-12-07 11:31 | PDOC ---
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 He denies any numbness or tingling. He denies any injury. He is also complaining of diffuse muscle cramping in his legs since having diarrhea every 15 to 30 minutes since waking up this morning. He states he ate at [employer] yesterday and believes something made him sick. He denies any fevers or chills. He denies any blood in his stool. He denies any nausea or vomiting. He states his stool is mostly water at this point with some solid pieces. He has been drinking Gatorade but only drank one small bottle thus far. He denies any drug allergies but states he is allergic to shellfish. Past History - Medical History Allergies/Adverse Reactions: Allergies Allergy/AdvReac Type Severity Reaction Status Date / Time shellfish derived Allergy Severe Swelling Verified 12/07/19 11:16 No Known Drug Allergies Allergy Verified 12/07/19 11:16 Home Medications: Ambulatory Orders Folic Acid/Multivit-Min/Lutein [Multi-Vitamin Gummies] 1 each PO DAILY #30 tab.chew 06/13/19 Hydrochlorothiazide [Hctz -] 12.5 mg PO DAILY #30 cap 06/13/19 Pantoprazole Sodium [Protonix -] 40 mg PO DAILY #30 tablet.ec 06/13/19 Rosuvastatin Calcium [Crestor] 10 mg PO DAILY #30 tablet 06/13/19 Thiamine HCl [B-1] 100 mg PO DAILY #30 tablet 06/13/19 Anemia: No Asthma: No Cancer: No Cardiac Disorders: No CVA: No COPD: No CHF: No Dementia: No Diabetes: No GI Disorders: No (GASTRIC ULCER) Disorders: No HTN: No Hypercholesterolemia: No Kidney Stones: No Liver Disease: No Seizures: Yes (last 2013 ) Thyroid Disease: No - Reproductive History Testicular Surgery: No - Psycho-Social/Smoking History Smoking History: Never smoked Have you smoked in the past 12 months: No Information on smoking cessation initiated: No - Substance Abuse Hx (Audit-C & DAST Scrn) How often the patient has a drink containing alcohol: Never Score: In Men: 4 or > Positive; In Women: 3 or > Positive: 0 Screen Result (Pos requires Nsg. Audit-10AR): Negative In the last yr the pt used illegal drug/Rx for NonMed reason: No Score: Yes response is considered Positive: 0 Screen Result (Positive result requires Nsg. DAST-10): Negative Review of Systems - Review of Systems Comments:: 12/07/19 11:27 - Review of Systems Able to Perform ROS?: Yes Constitutional: No: Fever, Chills, Loss of Appetite, Night Sweats, Weakness HEENTM: No: Eye Pain, Vision changes, Ear Pain, Throat Pain, Throat Swelling, M outh Pain, Difficulty Swallowing Respiratory: No: Cough, Shortness of Breath, Wheezing, Sputum Production Cardiac (ROS): No: Chest Pain, Chest Tightness, Palpitations, Irregular Heart Beat, Edema ABD/GI: No: Nausea, Vomiting, Abdominal Pain, positive: Diarrhea : No Dysuria, No Hematuria, No Frequency, No Urgency Musculoskeletal: No: Muscle Pain, Back Pain, Joint Pain, Muscle Weakness, Neck Pain; positive: Diffuse leg muscle cramping, left distal forearm pain Integumentary: No: Lesions, Rash Neurological: No: Headache, Numbness, Tingling, Weakness, Speech Difficulties *Physical Exam - Vital Signs Last Vital Signs Temp Pulse Resp BP Pulse Ox 98.3 F 92 H 19 114/80 98 12/07/19 11:11 12/07/19 11:11 12/07/19 11:11 12/07/19 11:11 12/07/19 11:11 - Physical Exam 12/07/19 11:28 - Physical Exam General Appearance: Nourished, Appropriately Dressed, No Distress HEENT: EOMI, Normal Voice, Hearing Grossly Normal Neck: Supple, No Lymphadenopathy (R), No Lymphadenopathy (L), No Rigidity, No Decreased range of motion Respiratory/Chest: Lungs Clear, Normal Breath Sounds. No Respiratory Distress, No Accessory Muscle Use Cardiovascular: Regular Rhythm, Regular Rate, S1, S2 Gastrointestinal/Abdominal: Non-tender, No Guarding, No Rebound, No Rigidity; hyperactive bowel sounds. No abdominal tenderness to palpation. Musculoskeletal: Normal Inspection. No Decreased Range of Motion; left forearm with tenderness over the distal aspect of the forearm. Full range of motion at the wrist, all fingers and the elbow. Sensation intact to the radial, median and ulnar nerve distributions. Patient able to flex, extend, supinate, pronate and move all fingers of the left wrist and hand without difficulty. Tenderness over the dorsolateral aspect of the distal forearm. Extremity: Normal Capillary Refill, Normal Inspection Integumentary: Normal Color, Dry. No Rash Neurologic: ocular care technologist II-XII NML intact, Fully Oriented, Alert, Normal Mood/Affect, Normal Response ED Treatment Course - LABORATORY CBC & Chemistry Diagram: 12/07/19 11:43 12/07/19 11:43 - ADDITIONAL ORDERS Additional order review: 12/07/19 12:50 Laboratory Tests 12/07/19 11:43 Sodium 133 L Potassium 4.6 Chloride 104 Carbon Dioxide 20 L Anion Gap 9 BUN 9.6 Creatinine 1.1 Est GFR (CKD-EPI)AfAm 87.74 Est GFR (CKD-EPI)NonAf 75.70 Random Glucose 131 H Calcium 8.9 Total Bilirubin 0.8 AST 207 H ALT 139 H Alkaline Phosphatase 125 H Total Protein 7.7 Albumin 3.6 Medical Decision Making - Medical Decision Making 12/07/19 11:29 Assessment: Patient is a 54-year-old male with many episodes of diarrhea and diffuse leg muscle cramping since waking this morning. He is also having left distal forearm tenderness after repetitive motion at work. His leg cramping is likely secondary to dehydration. His distal forearm pain is likely secondary to muscle strain. Plan: -Saline lock -1 L of NS ordered -CBC and CMP ordered -Left wrist cock-up splint -Will reassess 12/07/19 12:50 The patient has been made aware that his LFTs are slightly elevated. After further evaluation his admits that the patient does drink alcohol daily. He has been made aware that his LFTs are likely elevated secondary to his alcohol intake. He denies taking any Tylenol. He states his body cramps have resolved completely. We will place him in a wrist cock-up splint and have him follow-up with orthopedics for further evaluation and treatment. He will follow-up with GI for further evaluation and treatment and reassessment of his elevated LFTs. He understands and agrees with this treatment plan and he is stable for discharge. Discharge - Discharge Information Problems reviewed: Yes Clinical Impression/Diagnosis: Transaminitis Muscle strain of left wrist Qualifiers: Encounter type: initial encounter Qualified Code(s): S66.912A - Strain of unspecified muscle, fascia and tendon at wrist and hand level, left hand, initial encounter Diarrhea Qualifiers: Diarrhea type: presumed infectious Qualified Code(s): R19.7 - Diarrhea, unspecified Condition: Stable Disposition: HOME - Follow up/Referral Referrals: Kj Montanez MD [Primary Care Provider] - Call tomorrow Joe Bates MD [Staff Physician] - 3 days Ricco Palomino MD [Staff Physician] - 1 week - Patient Discharge Instructions Patient Printed Discharge Instructions: DI for Wrist Strain, Liver Function Tests, DI for Diarrhea and Traveler's Diarrhea -- Adult Additional Instructions: Get plenty of rest and drink plenty of fluids. Avoid alcohol to help prevent worsening of your liver function. You have slightly elevated liver function tests which is likely secondary to your daily alcohol use. Avoid taking Tylenol as this can also worsen your liver function. Wear the wrist brace for support and you can wear while at work. You may remove it to shower and eat. Follow-up with GI for further evaluation of your liver function and diarrhea. Follow-up with hand surgery for further evaluation of your left wrist. Follow-up with your primary doctor within 1 to 2 days for repeat evaluation. - Post Discharge Activity Work/Back to School Note: Back to Work
[2019-12-07 12:07] LABS: BASO % 0.8 % (0-2.0); EOS % 1.5 % (0-4.5); HEMATOCRIT 42.5 % (35.4-49); HEMOGLOBIN 13.9 GM/dL (11.7-16.9); LYMPH % 26.3 % (8-40); MCH 28.8 pg (25.7-33.7); MCHC 32.7 g/dl (32.0-35.9); MEAN CELL VOLUME 88.1 fl (80-96); MEAN PLT VOLUME 8.1 fl (7.5-11.1); MONO % 7.8 % (3.8-10.2); NEUT % 63.6 % (42.8-82.8); PLATELET COUNT 197 K/MM3 (134-434); RBC 4.83 M/mm3 (4.00-5.60); RDW 14.6 % (11.9-15.9); WHITE BLOOD COUNT 6.4 K/mm3 (4.0-10.0)
[2019-12-07] MEDS ORDERED: SODIUM CHLORIDE 0.9% 500 ML INFUS.BAG IV ONE (12:15)
[2019-12-07 12:38] LABS: ALBUMIN 3.6 g/dl (3.4-5.0); BILIRUBIN,TOTAL 0.8 mg/dL (0.2-1); BLOOD UREA NITROGEN 9.6 mg/dL (7-18); CALCIUM 8.9 mg/dL (8.5-10.1); CREATININE 1.1 mg/dL (0.55-1.3); POTASSIUM 4.6 mmol/L (3.5-5.1); TOT PROT 7.7 g/dl (6.4-8.2)
== END 2019-12-07 13:05 | disposition home or self-care (01) ==
LOC: JERFT 11:07
DX: S66.912A Strain of unspecified muscle, fascia and tendon at wrist and hand level, left hand, initial encounter (principal); R19.7 Diarrhea, unspecified; R74.0 Nonspecific elevation of levels of transaminase and lactic acid dehydrogenase [LDH]
CPT/HCPCS: 36415; 80053; 85025; 99284-25

== ENCOUNTER 2020-03-14 14:42 | Inpatient (IN) | payer OTHER ==
[2020-03-14] MEDS ORDERED: LACTATED RINGERS SOLUTION 1000 ML INFUS.BAG IV ONE ×2 (16:18→17:26)
[2020-03-14] MEDS ORDERED: ACETAMINOPHEN 1000 MG/100 ML VIAL (NON FORMULARY) IVPB ONE (16:23)
[2020-03-14 16:24] LABS: VENOUS BASE EXCESS 7.1 mmol/L (-2-2); VENOUS O2 SATURATION 79.9 % (70-80); VENOUS PCO2 43.1 mmHg (38-52); VENOUS PH 7.482 (7.310-7.410)
[2020-03-14 16:32] LABS: BASO % 1.6 % (0-2.0); EOS % 0.1 % (0-4.5); HEMATOCRIT 46.5 % (35.4-49); HEMOGLOBIN 15.6 GM/dL (11.7-16.9); LYMPH % 15.2 % (8-40); MCH 28.3 pg (25.7-33.7); MCHC 33.6 g/dl (32.0-35.9); MEAN CELL VOLUME 84.4 fl (80-96); MEAN PLT VOLUME 7.8 fl (7.5-11.1); MONO % 9.9 % (3.8-10.2); NEUT % 73.2 % (42.8-82.8); PLATELET COUNT 438 K/MM3 (134-434); RBC 5.51 M/mm3 (4.00-5.60); RDW 14.1 % (11.9-15.9); WHITE BLOOD COUNT 8.2 K/mm3 (4.0-10.0)
[2020-03-14] MEDS ORDERED: ACETAMINOPHEN INJECTION 100 ML IVPB ONE (16:32)
[2020-03-14 17:24] LABS: ALBUMIN 3.4 g/dl (3.4-5.0); ALK PHOS 293 U/L (45-117); ANION GAP 15 MMOL/L (8-16); BLOOD UREA NITROGEN 10.5 mg/dL (7-18); CALCIUM 10.3 mg/dL (8.5-10.1); CHLORIDE 92 mmol/L (98-107); CO2 25 mmol/L (21-32); CREATININE 2.6 mg/dL (0.55-1.3); GLUCOSE,RANDOM 135 mg/dL (74-106); LIPASE 427 U/L (73-393); MAGNESIUM 2.6 mg/dL (1.8-2.4); PHOSPHOROUS 5.3 mg/dL (2.5-4.9); POTASSIUM 5.6 mmol/L (3.5-5.1); SGOT/AST 135 U/L (15-37); SGPT/ALT 65 U/L (13-61); SODIUM 131 mmol/L (136-145); TOT PROT 10.2 g/dl (6.4-8.2)
[2020-03-14] MEDS ORDERED: SODIUM CHLORIDE 1,000 ML IV SCH (20:15)
[2020-03-14] MEDS ORDERED: HEPARIN NA (PORCINE) 5,000 UNITS/ML 1ML VIAL ONE (21:42)
[2020-03-14] MEDS: HEPARIN NA (PORCINE) 5,000 UNITS/ML 1ML VIAL SQ SCH (21:48)
[2020-03-15] MEDS ORDERED: ACETAMINOPHEN 325 MG TABLET (FP) PO ONE (01:15)
[2020-03-15] MEDS ORDERED: ONDANSETRON 4 MG/2 ML VIAL IVPUSH ONE (04:18)
[2020-03-15] MEDS ORDERED: ONDANSETRON 4 MG/2 ML VIAL ONE ×2 (04:19→12:53)
[2020-03-15] MEDS ORDERED: METOCLOPRAMIDE HCL INJECTION 10 MG/2 ML VIAL IVPB PRN (05:51)
[2020-03-15] MEDS ORDERED: METOCLOPRAMIDE HCL INJECTION 10 MG/2 ML VIAL ONE (05:55)
[2020-03-15] MEDS ORDERED: HEPARIN NA (PORCINE) 5,000 UNITS/ML 1ML VIAL ONE (06:04)
[2020-03-15] MEDS: HEPARIN NA (PORCINE) 5,000 UNITS/ML 1ML VIAL SQ SCH (06:07)
[2020-03-15 09:42] LABS: BASO % 0.3 % (0-2.0); HEMATOCRIT 40.4 % (35.4-49); HEMOGLOBIN 13.7 GM/dL (11.7-16.9); LYMPH % 10.8 % (8-40); MCH 28.6 pg (25.7-33.7); MEAN CELL VOLUME 84.1 fl (80-96); MONO % 7.3 % (3.8-10.2); NEUT % 81.6 % (42.8-82.8); PLATELET COUNT 523 K/MM3 (134-434); RBC 4.81 M/mm3 (4.00-5.60); RDW 14.2 % (11.9-15.9); WHITE BLOOD COUNT 13.4 K/mm3 (4.0-10.0)
[2020-03-15 10:00] LABS: BLOOD UREA NITROGEN 18.9 mg/dL (7-18); CALCIUM 8.8 mg/dL (8.5-10.1)
[2020-03-15] MEDS ORDERED: SODIUM CHLORIDE 1,000 ML IV SCH (10:02)
[2020-03-15 10:03] LABS: CREATININE 1.5 mg/dL (0.55-1.3)
[2020-03-15 10:07] LABS: POTASSIUM 2.6 mmol/L (3.5-5.1)
[2020-03-15] MEDS ORDERED: POTASSIUM CHLORIDE TABS 20 MEQ TABLET.ER (FP) PO ONE ×2 (10:08→10:59)
[2020-03-15 10:14] LABS: INR 1.01 (0.83-1.09); PROTHROMBIN TIME (PATIENT) 12.2 SEC (9.7-13.0)
[2020-03-15 10:55] LABS: HIV INTERPRETATION NEGATIVE (NEGATIVE)
[2020-03-15] MEDS: SODIUM CHLORIDE 1,000 ML IV SCH (10:58)
[2020-03-15] MEDS ORDERED: AZITHROMYCIN IVPB 500 MG/250 ML BAG IVPB ONE (11:00)
[2020-03-15] MEDS ORDERED: CEFTRIAXONE 1 GM/50 ML BAG ONE (11:00)
[2020-03-15] MEDS ORDERED: KCL 10 MEQ IVPB 10 MEQ/100 ML INFUS.BAG IVPB ONE ×2 (11:00→12:49)
[2020-03-15] MEDS: AZITHROMYCIN IVPB 250 MG in DEXTROSE 5%-WATER - 250 ML IVPB SCH (11:08)
[2020-03-15] MEDS: KCL 10 MEQ IVPB 10 MEQ/100 ML INFUS.BAG IVPB SCH ×3 (11:08→12:49)
[2020-03-15] MEDS: CEFTRIAXONE 1 GM in DEXTROSE 5%-WATER - 50 ML IVPB SCH (11:08)
[2020-03-15] MEDS ORDERED: ASCORBIC ACID 500 MG TABLET (FP) ONE (12:48)
[2020-03-15] MEDS ORDERED: ZINC SULFATE 220 MG CAPSULE (FP) ONE (12:48)
[2020-03-15] MEDS: ZINC SULFATE 220 MG CAPSULE (FP) PO SCH ×2 (12:49→21:31)
[2020-03-15] MEDS: ASCORBIC ACID 250 MG TABLET (FP) PO SCH ×2 (12:49→21:31)
[2020-03-15 20:35] VITALS: BMI 26.6
[2020-03-15] MEDS ORDERED: PT OWN MED DRAWER 7, Y5N ONE ×3 (21:08→22:34)
[2020-03-15 21:15] LABS: POTASSIUM 3.2 mmol/L (3.5-5.1)
[2020-03-15 21:17] LABS: BLOOD UREA NITROGEN 16.9 mg/dL (7-18)
[2020-03-15 21:20] LABS: CREATININE 1.3 mg/dL (0.55-1.3)
[2020-03-15] MEDS: ENOXAPARIN NA (PORCINE) 80 MG/0.8 ML DISP.SYRIN SQ SCH (21:28)
[2020-03-15] MEDS: PANTOPRAZOLE SODIUM 40 MG VIAL IVPUSH SCH (21:28)
[2020-03-16 07:57] LABS: BASO % 0.6 % (0-2.0); EOS % 0.2 % (0-4.5); HEMATOCRIT 39.2 % (35.4-49); HEMOGLOBIN 13.3 GM/dL (11.7-16.9); LYMPH % 20.8 % (8-40); MCH 28.6 pg (25.7-33.7); MCHC 33.9 g/dl (32.0-35.9); MEAN CELL VOLUME 84.3 fl (80-96); MONO % 7.4 % (3.8-10.2); PLATELET COUNT 553 K/MM3 (134-434); RBC 4.65 M/mm3 (4.00-5.60); RDW 14.1 % (11.9-15.9); WHITE BLOOD COUNT 16.8 K/mm3 (4.0-10.0)
[2020-03-16 08:26] LABS: POTASSIUM 3.3 mmol/L (3.5-5.1)
[2020-03-16] MEDS ORDERED: DEXTROSE 5%-WATER - 50 ML IVPB ONE (08:28)
[2020-03-16] MEDS ORDERED: cefTRIAXone SODIUM 1 GM VIAL ONE (08:28)
[2020-03-16 08:29] LABS: ALBUMIN 2.9 g/dl (3.4-5.0); CALCIUM 9.2 mg/dL (8.5-10.1)
[2020-03-16 08:32] LABS: CREATININE 1.5 mg/dL (0.55-1.3)
[2020-03-16 08:33] LABS: BILIRUBIN,TOTAL 0.6 mg/dL (0.2-1)
[2020-03-16] MEDS: PANTOPRAZOLE SODIUM 40 MG VIAL IVPUSH SCH (09:21)
[2020-03-16] MEDS: ZINC SULFATE 220 MG CAPSULE (FP) PO SCH ×2 (09:21→21:27)
[2020-03-16] MEDS: CHOLECALCIFEROL (VIT D3) 1,000 UNIT (25 MCG) TABLET PO SCH (09:21)
[2020-03-16] MEDS: CEFTRIAXONE 1 GM in DEXTROSE 5%-WATER - 50 ML IVPB SCH (09:21)
[2020-03-16] MEDS: ENOXAPARIN NA (PORCINE) 80 MG/0.8 ML DISP.SYRIN SQ SCH ×2 (09:21→21:27)
[2020-03-16] MEDS: ASCORBIC ACID 250 MG TABLET (FP) PO SCH ×2 (09:22→23:28)
[2020-03-16] MEDS ORDERED: PT OWN MED DRAWER 7, Y5N ONE ×2 (09:58→21:25)
[2020-03-16 10:20] LABS: ERYTHROCYTE SEDIMENTATION RATE 89 mm/hr (0-20)
[2020-03-16] MEDS ORDERED: KCL 10 MEQ IVPB 10 MEQ/100 ML INFUS.BAG IVPB SCH (10:45)
[2020-03-16] MEDS: AZITHROMYCIN IVPB 250 MG in DEXTROSE 5%-WATER - 250 ML IVPB SCH (11:01)
[2020-03-16] MEDS ORDERED: POTASSIUM CHLORIDE TABS 20 MEQ TABLET.ER (FP) PO ONE ×2 (11:15→19:00)
[2020-03-16] MEDS: SODIUM CHLORIDE 1,000 ML IV SCH (11:23)
[2020-03-16 21:06] LABS: HEP B CORE AB, TOT Negative (Negative)
[2020-03-17 08:28] LABS: BASO % 1.3 % (0-2.0); EOS % 0.8 % (0-4.5); HEMATOCRIT 34.1 % (35.4-49); HEMOGLOBIN 11.4 GM/dL (11.7-16.9); LYMPH % 31.7 % (8-40); MCH 28.2 pg (25.7-33.7); MCHC 33.5 g/dl (32.0-35.9); MEAN CELL VOLUME 84.3 fl (80-96); MEAN PLT VOLUME 7.4 fl (7.5-11.1); MONO % 9.8 % (3.8-10.2); NEUT % 56.4 % (42.8-82.8); PLATELET COUNT 456 K/MM3 (134-434); RBC 4.04 M/mm3 (4.00-5.60); RDW 13.7 % (11.9-15.9); WHITE BLOOD COUNT 9.4 K/mm3 (4.0-10.0)
[2020-03-17 08:44] LABS: POTASSIUM 3.2 mmol/L (3.5-5.1)
[2020-03-17 08:56] LABS: CALCIUM 8.7 mg/dL (8.5-10.1)
[2020-03-17 08:57] LABS: ALBUMIN 2.6 g/dl (3.4-5.0); BLOOD UREA NITROGEN 10.4 mg/dL (7-18); MAGNESIUM 1.9 mg/dL (1.8-2.4)
[2020-03-17 08:59] LABS: CREATININE 1.1 mg/dL (0.55-1.3); PHOSPHOROUS 2.4 mg/dL (2.5-4.9)
[2020-03-17 09:01] LABS: BILIRUBIN,TOTAL 0.7 mg/dL (0.2-1); TOT PROT 6.8 g/dl (6.4-8.2)
[2020-03-17] MEDS ORDERED: PT OWN MED DRAWER 7, Y5N ONE (09:41)
[2020-03-17] MEDS ORDERED: cefTRIAXone SODIUM 1 GM VIAL ONE (09:42)
[2020-03-17] MEDS ORDERED: DEXTROSE 5%-WATER - 50 ML IVPB ONE (09:42)
[2020-03-17] MEDS: CHOLECALCIFEROL (VIT D3) 1,000 UNIT (25 MCG) TABLET PO SCH (09:50)
[2020-03-17] MEDS: CEFTRIAXONE 1 GM in DEXTROSE 5%-WATER - 50 ML IVPB SCH (09:50)
[2020-03-17] MEDS: ZINC SULFATE 220 MG CAPSULE (FP) PO SCH (09:50)
[2020-03-17] MEDS: ENOXAPARIN NA (PORCINE) 80 MG/0.8 ML DISP.SYRIN SQ SCH (09:51)
[2020-03-17] MEDS: ASCORBIC ACID 250 MG TABLET (FP) PO SCH (09:51)
[2020-03-17] MEDS: PANTOPRAZOLE SODIUM 40 MG VIAL IVPUSH SCH (09:51)
[2020-03-17] MEDS ORDERED: POTASSIUM CHLORIDE TABS 20 MEQ TABLET.ER (FP) PO ONE ×3 (11:13→17:00)
[2020-03-17] MEDS ORDERED: NAPH,MB-DB/K PH,MBDB POWDER PACKET PO ONE (11:15)
[2020-03-17] MEDS: AZITHROMYCIN IVPB 250 MG in DEXTROSE 5%-WATER - 250 ML IVPB SCH (11:26)
[2020-03-17] MEDS: KCL 10 MEQ IVPB 10 MEQ/100 ML INFUS.BAG IVPB SCH ×3 (13:15→14:19)
[2020-03-17 16:08] VITALS: BP 99/66; PULSE 84; TEMP 98.6
== END 2020-03-17 18:30 | disposition home or self-care (01) | DRG 177 ==
LOC: JER 14:42 → JERBED 17:30 → UNDOADMIN 18:42 → J8W 03-15 18:32
PROVIDERS: ADMIT Internal Medicine; ATTEND Internal Medicine
DX: U07.1 COVID-19 (principal); J12.89 Other viral pneumonia; N17.9 Acute kidney failure, unspecified; E87.1 Hypo-osmolality and hyponatremia; A08.39 Other viral enteritis; E87.2 Acidosis; E86.0 Dehydration; R74.01 Elevation of levels of liver transaminase levels; R55 Syncope and collapse; E87.6 Hypokalemia; F10.20 Alcohol dependence, uncomplicated; K21.9 Gastro-esophageal reflux disease without esophagitis; E78.5 Hyperlipidemia, unspecified; I95.9 Hypotension, unspecified; D72.829 Elevated white blood cell count, unspecified; G62.9 Polyneuropathy, unspecified
CPT/HCPCS: 36415; 70450-TC; 71045-TC-FY; 71250-TC; 74176-TC; 80048; 80053; 82272; 82607; 82728; 82803; 82962; 83605; 83615; 83690; 83735; 84100; 84484; 85025; 85027; 85379; 85610; 85651; 86140; 86704; 86706; 86707; 86708; 86709; 86769; 87040; 87045; 87046; 87177; 87209; 87324; 87340; 87389; 87449; 93005; 93010; 94761; 97116-GP; 97161-GP; 99285-25; C9803; J0131; J1644; U0003

== ENCOUNTER 2021-01-17 20:23 | Inpatient (IN) | payer OTHER ==
[2021-01-17] MEDS ORDERED: ACETAMINOPHEN 325 MG TABLET (FP) PO ONE (21:20)
[2021-01-17] MEDS ORDERED: MAG HYDROX/AL HYDROX/SIMETH 30 ML UNIT-DOSE CUP PO ONE (21:20)
[2021-01-17] MEDS ORDERED: FAMOTIDINE 20 MG/50 ML IVPB 20 MG/50 ML MG IVPB ONE ×2 (21:21→21:46)
[2021-01-17] MEDS ORDERED: ONDANSETRON 4 MG/2 ML VIAL IVPUSH ONE (21:21)
[2021-01-17] MEDS ORDERED: ACETAMINOPHEN 325 MG TABLET (FP) ONE (21:45)
[2021-01-17] MEDS ORDERED: MAG HYDROX/AL HYDROX/SIMETH 30 ML UNIT-DOSE CUP ONE (21:46)
[2021-01-17] MEDS ORDERED: ONDANSETRON 4 MG/2 ML VIAL ONE (21:46)
[2021-01-17 22:16] LABS: EOS % 0.1 % (0-4.5); HEMATOCRIT 36.8 % (35.4-49); HEMOGLOBIN 12.5 GM/dL (11.7-16.9); LYMPH % 18.5 % (8-40); MCH 28.7 pg (25.7-33.7); MEAN CELL VOLUME 84.4 fl (80-96); MEAN PLT VOLUME 8.1 fl (7.5-11.1); MONO % 5.8 % (3.8-10.2); NEUT % 74.6 % (42.8-82.8); PLATELET COUNT 223 10^3/uL (134-434); RBC 4.36 M/mm3 (4.00-5.60); RDW 14.9 % (11.9-15.9); WHITE BLOOD COUNT 12.9 K/mm3 (4.0-10.0)
[2021-01-17] MEDS ORDERED: LACTATED RINGERS SOLUTION 1000 ML INFUS.BAG IV ONE (22:17)
[2021-01-17 22:35] LABS: CHLORIDE 100 mmol/L (98-107); SODIUM 140 mmol/L (136-145)
[2021-01-17 22:37] LABS: ALBUMIN 3.5 g/dl (3.4-5.0); BLOOD UREA NITROGEN 7.1 mg/dL (7-18)
[2021-01-17 22:38] LABS: CO2 28 mmol/L (21-32); LIPASE 92 U/L (73-393); MAGNESIUM 0.7 mg/dL (1.8-2.4)
[2021-01-17 22:40] LABS: SGOT/AST 65 U/L (15-37); SGPT/ALT 40 U/L (13-61)
[2021-01-17 22:41] LABS: GLUCOSE,RANDOM 90 mg/dL (74-106); PHOSPHOROUS 2.7 mg/dL (2.5-4.9)
[2021-01-17 22:42] LABS: BILIRUBIN,TOTAL 0.6 mg/dL (0.2-1); TOT PROT 7.6 g/dl (6.4-8.2)
[2021-01-17 22:43] LABS: ALK PHOS 165 U/L (45-117)
[2021-01-17 22:48] LABS: ANION GAP 13 MMOL/L (8-16); CALCIUM 6.5 mg/dL (8.5-10.1)
[2021-01-17] MEDS ORDERED: MAGNESIUM SULF 50% (8.12 MEQ/2 ML-1 GM VIAL) IVPB ONE (22:52)
[2021-01-17] MEDS ORDERED: POTASSIUM CHLORIDE TABS 20 MEQ TABLET.ER (FP) PO ONE (22:52)
[2021-01-17] MEDS ORDERED: CALCIUM CHLORIDE 10% 1 GM/10 ML *VIAL IVPUSH ONE (22:53)
[2021-01-17] MEDS ORDERED: POTASSIUM CHLORIDE TABS 10 MEQ TABLET.ER (FP) ONE (23:12)
[2021-01-17] MEDS ORDERED: KCL 10 MEQ IVPB 30 MEQ/300 ML INFUS.BAG IVPB ONE (23:13)
[2021-01-17] MEDS: KCL 10 MEQ IVPB 10 MEQ/100 ML INFUS.BAG IVPB SCH (23:35)
[2021-01-18] MEDS ORDERED: CALCIUM GLUCONATE 10% - 1,000 MG/10 ML VIAL ONE ×2 (00:04→04:39)
[2021-01-18] MEDS ORDERED: MAGNESIUM SULFATE IN WATER 2 GM/50 ML IVPB IVPB ONE ×3 (00:04→09:10)
[2021-01-18] MEDS ORDERED: FOLIC ACID INJECTION - 1 MG, THIAMINE HCL 100 MG, MULTIVIT INJECTION ADULT 10 ML in SOD... IVPB ONE (01:14)
[2021-01-18 02:31] LABS: CHLORIDE 104 mmol/L (98-107); SODIUM 142 mmol/L (136-145)
[2021-01-18 02:33] LABS: ALBUMIN 2.8 g/dl (3.4-5.0); BLOOD UREA NITROGEN 5.8 mg/dL (7-18); CO2 28 mmol/L (21-32)
[2021-01-18 02:36] LABS: CREATININE 0.8 mg/dL (0.55-1.3); SGOT/AST 51 U/L (15-37); SGPT/ALT 33 U/L (13-61)
[2021-01-18 02:38] LABS: BILIRUBIN,TOTAL 0.7 mg/dL (0.2-1); TOT PROT 6.3 g/dl (6.4-8.2)
[2021-01-18 02:39] LABS: ALK PHOS 142 U/L (45-117)
[2021-01-18 03:27] LABS: GLUCOSE,RANDOM 87 mg/dL (74-106)
[2021-01-18 03:30] LABS: ANION GAP 9 MMOL/L (8-16); CALCIUM 6.2 mg/dL (8.5-10.1)
[2021-01-18] MEDS ORDERED: CALCIUM GLUCONATE 10% - 1,000 MG/10 ML VIAL IVPUSH ONE ×2 (03:58→06:17)
[2021-01-18] MEDS ORDERED: MAGNESIUM CL 64 MG TABLET.SA PO ONE (04:15)
[2021-01-18] MEDS: KCL 10 MEQ IVPB 10 MEQ/100 ML INFUS.BAG IVPB SCH ×4 (04:20→20:54)
[2021-01-18] MEDS ORDERED: POTASSIUM CHLORIDE ORAL LIQUID 20 MEQ/15 ML PO ONE (04:28)
[2021-01-18] MEDS ORDERED: MAGNESIUM SULF 50% (8.12 MEQ/2 ML-1 GM VIAL) IVPB ONE (04:28)
[2021-01-18 04:54] LABS: MAGNESIUM 1.1 mg/dL (1.8-2.4)
[2021-01-18] MEDS ORDERED: LORazepam 2 MG TABLET PO SCH (05:00)
[2021-01-18 05:31] LABS: PHOSPHOROUS 2.9 mg/dL (2.5-4.9)
[2021-01-18] MEDS ORDERED: ACETAMINOPHEN 325 MG TABLET (FP) PO PRN (05:46)
[2021-01-18] MEDS ORDERED: PROCHLORPERAZINE INJECTION 10 MG/2 ML VIAL IVPB PRN (05:55)
[2021-01-18] MEDS ORDERED: LORazepam 1 MG TABLET PO PRN (06:15)
[2021-01-18] MEDS ORDERED: LORazepam 2 MG/ML SDV VIAL ONE (06:29)
[2021-01-18] MEDS ORDERED: KCL 10 MEQ IVPB 10 MEQ/100 ML INFUS.BAG IVPB ONE (06:30)
[2021-01-18 08:05] LABS: PH,URINE 6.5 (5.0-8.0); URINE APPEARANCE CLEAR; URINE BILIRUBIN NEGATIVE (NEGATIVE); URINE COLOR YELLOW; URINE GLUCOSE (UA) NEGATIVE (NEGATIVE); URINE KETONE NEGATIVE (NEGATIVE); URINE LEUK ESTERASE NEGATIVE (NEGATIVE); URINE NITRITE NEGATIVE (NEGATIVE); URINE PROTEIN TRACE (NEGATIVE); URINE UROBILINOGEN 0.2 mg/dL (0.2-1.0)
[2021-01-18] MEDS ORDERED: ACETAMINOPHEN 325 MG TABLET (FP) ONE (08:31)
[2021-01-18] MEDS ORDERED: FOLIC ACID 1 MG TABLET (FP) ONE (08:31)
[2021-01-18] MEDS ORDERED: THIAMINE HCL 100 MG TABLET (FP) ONE (08:31)
[2021-01-18] MEDS ORDERED: PANTOPRAZOLE SODIUM 40 MG VIAL ONE (09:11)
[2021-01-18] MEDS: MAGNESIUM 2GM/50ML STERILE WATER IVPB IVPB SCH ×3 (09:36→20:55)
[2021-01-18] MEDS: THIAMINE HCL 100 MG TABLET (FP) PO SCH (09:37)
[2021-01-18] MEDS: FOLIC ACID 1 MG TABLET (FP) PO SCH (09:37)
[2021-01-18] MEDS ORDERED: PANTOPRAZOLE SODIUM 40 MG VIAL IVPUSH SCH (10:00)
[2021-01-18 10:20] LABS: BASO % 0.5 % (0-2.0); EOS % 0.3 % (0-4.5); HEMATOCRIT 34.2 % (35.4-49); HEMOGLOBIN 11.4 GM/dL (11.7-16.9); LYMPH % 21.9 % (8-40); MCH 28.5 pg (25.7-33.7); MCHC 33.4 g/dl (32.0-35.9); MEAN CELL VOLUME 85.5 fl (80-96); MEAN PLT VOLUME 8.3 fl (7.5-11.1); MONO % 7.1 % (3.8-10.2); NEUT % 70.2 % (42.8-82.8); PLATELET COUNT 211 10^3/uL (134-434); RDW 14.8 % (11.9-15.9); WHITE BLOOD COUNT 8.7 K/mm3 (4.0-10.0)
[2021-01-18 10:38] LABS: ALBUMIN 2.8 g/dl (3.4-5.0); BLOOD UREA NITROGEN 4.2 mg/dL (7-18); MAGNESIUM 2.3 mg/dL (1.8-2.4)
[2021-01-18 10:41] LABS: CREATININE 0.8 mg/dL (0.55-1.3)
[2021-01-18 10:43] LABS: BILIRUBIN,TOTAL 0.9 mg/dL (0.2-1); TOT PROT 6.3 g/dl (6.4-8.2)
[2021-01-18 10:46] LABS: CALCIUM 7.2 mg/dL (8.5-10.1)
[2021-01-18] MEDS: LORazepam 1 MG TABLET PO SCH ×3 (11:07→23:30)
[2021-01-18 13:01] VITALS: BMI 31.5
[2021-01-18] MEDS ORDERED: POTASSIUM CHLORIDE TABS 20 MEQ TABLET.ER (FP) PO ONE (15:46)
[2021-01-18] MEDS ORDERED: CALCIUM GLUCONATE 10% - 1,000 MG/10 ML VIAL IVPB ONE (16:38)
[2021-01-18 18:09] LABS: CALCIUM 7.3 mg/dL (8.5-10.1)
[2021-01-18 18:10] LABS: BLOOD UREA NITROGEN 4.5 mg/dL (7-18)
[2021-01-18 18:13] LABS: CREATININE 0.8 mg/dL (0.55-1.3)
[2021-01-18] MEDS ORDERED: ATORVASTATIN CA 20 MG TABLET (FP) PO SCH (22:00)
[2021-01-19] MEDS: LORazepam 1 MG TABLET PO SCH ×2 (05:35→11:14)
[2021-01-19 08:45] LABS: BASO % 0.5 % (0-2.0); EOS % 2.5 % (0-4.5); HEMATOCRIT 34.6 % (35.4-49); HEMOGLOBIN 11.5 GM/dL (11.7-16.9); MCH 28.6 pg (25.7-33.7); MCHC 33.1 g/dl (32.0-35.9); MEAN CELL VOLUME 86.5 fl (80-96); MEAN PLT VOLUME 8.6 fl (7.5-11.1); MONO % 7.6 % (3.8-10.2); NEUT % 59.4 % (42.8-82.8); PLATELET COUNT 221 10^3/uL (134-434); RDW 14.8 % (11.9-15.9); WHITE BLOOD COUNT 6.8 K/mm3 (4.0-10.0)
[2021-01-19 09:08] LABS: ALBUMIN 2.8 g/dl (3.4-5.0); CALCIUM 7.6 mg/dL (8.5-10.1)
[2021-01-19 09:12] LABS: CREATININE 0.7 mg/dL (0.55-1.3)
[2021-01-19 09:13] LABS: BILIRUBIN,TOTAL 0.3 mg/dL (0.2-1); TOT PROT 6.6 g/dl (6.4-8.2)
[2021-01-19] MEDS ORDERED: PANTOPRAZOLE 40 MG TABLET PO SCH (10:00)
[2021-01-19] MEDS: FOLIC ACID 1 MG TABLET (FP) PO SCH (11:14)
[2021-01-19] MEDS: THIAMINE HCL 100 MG TABLET (FP) PO SCH (11:14)
[2021-01-19] MEDS ORDERED: POTASSIUM CHLORIDE TABS 20 MEQ TABLET.ER (FP) PO ONE (13:07)
[2021-01-19 13:11] VITALS: BP 154/94; PULSE 83; TEMP 98.4
[2021-01-20] MEDS ORDERED: LORazepam 0.5 MG TABLET PO PRN
[2021-01-20] MEDS ORDERED: LORazepam 0.5 MG TABLET PO SCH (05:00)
[2021-01-21] MEDS ORDERED: LORazepam 0.5 MG TABLET PO ONE (05:00)
== END 2021-01-19 13:32 | disposition home or self-care (01) | DRG 641 ==
LOC: JER 20:23 → JERBED 01-18 04:29 → J6S 01-18 11:57
PROVIDERS: ADMIT Internal Medicine
DX: E87.6 Hypokalemia (principal); I10 Essential (primary) hypertension; E78.5 Hyperlipidemia, unspecified; K21.9 Gastro-esophageal reflux disease without esophagitis; E83.51 Hypocalcemia; E83.42 Hypomagnesemia; Z87.11 Personal history of peptic ulcer disease; R56.9 Unspecified convulsions; F10.10 Alcohol abuse, uncomplicated; D72.829 Elevated white blood cell count, unspecified; R11.10 Vomiting, unspecified; Z72.89 Other problems related to lifestyle
CPT/HCPCS: 36415; 71045-TC-FY; 80048; 80053; 81003; 82330; 83690; 83735; 84100; 84484; 85025; 93005; 93010; 99285-25; C9803; U0003; U0005

== ENCOUNTER 2021-02-13 14:27 | Inpatient (IN) | payer OTHER ==
[2021-02-13] MEDS ORDERED: METOCLOPRAMIDE HCL INJECTION 10 MG/2 ML VIAL IVPUSH ONE (18:27)
[2021-02-13] MEDS ORDERED: SODIUM CHLORIDE 1,000 ML IV STA (18:27)
[2021-02-13] MEDS ORDERED: KETOROLAC TROMETHAMINE 30 MG/1 ML VIAL IVPUSH ONE (18:27)
[2021-02-13 19:10] LABS: BASO % 0.6 % (0-2.0); EOS % 0.2 % (0-4.5); HEMATOCRIT 46.4 % (35.4-49); HEMOGLOBIN 15.4 GM/dL (11.7-16.9); LYMPH % 21.4 % (8-40); MCH 27.8 pg (25.7-33.7); MCHC 33.1 g/dl (32.0-35.9); MEAN CELL VOLUME 83.9 fl (80-96); MEAN PLT VOLUME 8.7 fl (7.5-11.1); MONO % 10.8 % (3.8-10.2); PLATELET COUNT 319 10^3/uL (134-434); RBC 5.53 M/mm3 (4.00-5.60); RDW 14.6 % (11.9-15.9); WHITE BLOOD COUNT 11.3 K/mm3 (4.0-10.0)
[2021-02-13 19:26] LABS: CHLORIDE 94 mmol/L (98-107); SODIUM 130 mmol/L (136-145)
[2021-02-13 19:28] LABS: CALCIUM 9.9 mg/dL (8.5-10.1)
[2021-02-13 19:29] LABS: ALBUMIN 4.8 g/dl (3.4-5.0); BLOOD UREA NITROGEN 31.3 mg/dL (7-18); CO2 30 mmol/L (21-32); GLUCOSE,RANDOM 116 mg/dL (74-106); LIPASE 79 U/L (73-393)
[2021-02-13 19:32] LABS: SGOT/AST 75 U/L (15-37)
[2021-02-13 19:33] LABS: BILIRUBIN,TOTAL 0.8 mg/dL (0.2-1); TOT PROT 9.4 g/dl (6.4-8.2)
[2021-02-13 19:35] LABS: ALK PHOS 119 U/L (45-117); ANION GAP 6 MMOL/L (8-16); SGPT/ALT 35 U/L (13-61)
[2021-02-13] MEDS ORDERED: ACETAMINOPHEN 1000 MG/100 ML VIAL IVPB ONE (20:15)
[2021-02-13] MEDS ORDERED: ACETAMINOPHEN INJECTION 100 ML IVPB ONE (20:21)
[2021-02-13] MEDS ORDERED: morphine CARPU-JECT 4 MG/1 ML DISP.SYRIN IVPUSH ONE (20:53)
[2021-02-13] MEDS ORDERED: morphine SULFATE 4 MG/ML VIAL ONE (21:10)
[2021-02-14] MEDS ORDERED: FOLIC ACID INJECTION - 1 MG, THIAMINE HCL 100 MG, MULTIVIT INJECTION ADULT 10 ML in SOD... IVPB ONE (01:49)
[2021-02-14] MEDS ORDERED: SUMAtriptan SUCCINATE 25 MG TABLET PO PRN (01:50)
[2021-02-14] MEDS ORDERED: oxyCODONE HCL 5 MG TABLET PO PRN (01:50)
[2021-02-14] MEDS ORDERED: SUMAtriptan SUCCINATE 50 MG TABLET ONE (01:57)
[2021-02-14 02:04] LABS: BLOOD UREA NITROGEN 27.7 mg/dL (7-18); CALCIUM 9.3 mg/dL (8.5-10.1); CREATININE 1.4 mg/dL (0.55-1.3)
[2021-02-14] MEDS: LACTATED RINGERS SOLUTION 1,000 ML/1,000 ML INFUS.BAG IV SCH ×2 (03:27→09:15)
[2021-02-14 08:04] LABS: ALBUMIN 3.9 g/dl (3.4-5.0); BLOOD UREA NITROGEN 22.4 mg/dL (7-18); CALCIUM 9.2 mg/dL (8.5-10.1)
[2021-02-14 08:05] LABS: MAGNESIUM 1.9 mg/dL (1.8-2.4)
[2021-02-14 08:07] LABS: CREATININE 1.2 mg/dL (0.55-1.3)
[2021-02-14 08:08] LABS: PHOSPHOROUS 3.1 mg/dL (2.5-4.9)
[2021-02-14 08:09] VITALS: BMI 29.9
[2021-02-14 08:09] LABS: BILIRUBIN,TOTAL 0.6 mg/dL (0.2-1); TOT PROT 7.7 g/dl (6.4-8.2)
[2021-02-14] MEDS: HEPARIN NA (PORCINE) 5,000 UNITS/ML 1ML VIAL SQ SCH ×3 (09:01→21:05)
[2021-02-14] MEDS: THIAMINE HCL 100 MG TABLET (FP) PO SCH (09:15)
[2021-02-14] MEDS: FOLIC ACID 1 MG TABLET (FP) PO SCH (09:15)
[2021-02-14] MEDS: PANTOPRAZOLE 40 MG TABLET PO SCH (09:15)
[2021-02-14 10:03] LABS: BASO % 0.6 % (0-2.0); EOS % 0.9 % (0-4.5); HEMATOCRIT 42.5 % (35.4-49); HEMOGLOBIN 14.2 GM/dL (11.7-16.9); LYMPH % 38.6 % (8-40); MCH 28.5 pg (25.7-33.7); MCHC 33.5 g/dl (32.0-35.9); MEAN CELL VOLUME 85.1 fl (80-96); MEAN PLT VOLUME 9.3 fl (7.5-11.1); MONO % 9.4 % (3.8-10.2); NEUT % 50.5 % (42.8-82.8); PLATELET COUNT 308 10^3/uL (134-434); RDW 14.2 % (11.9-15.9); WHITE BLOOD COUNT 9.3 K/mm3 (4.0-10.0)
[2021-02-14 10:22] LABS: PH,URINE 6.5 (5.0-8.0); URINE APPEARANCE CLEAR; URINE BILIRUBIN NEGATIVE (NEGATIVE); URINE COLOR YELLOW; URINE GLUCOSE (UA) NEGATIVE (NEGATIVE); URINE KETONE NEGATIVE (NEGATIVE); URINE LEUK ESTERASE NEGATIVE (NEGATIVE); URINE NITRITE NEGATIVE (NEGATIVE); URINE PROTEIN TRACE (NEGATIVE); URINE UROBILINOGEN 0.2 mg/dL (0.2-1.0)
[2021-02-14] MEDS ORDERED: ACETAMINOPHEN 325 MG TABLET (FP) PO ONE (10:24)
[2021-02-14 10:47] LABS: COCAINE, UR NEGATIVE (NEGATIVE); METHADONE, UR NEGATIVE (NEGATIVE); URINE BARBITURATES NEGATIVE (NEGATIVE); URINE BENZODIAZEPINES NEGATIVE (NEGATIVE)
[2021-02-14 10:48] LABS: PHENCYCLIDINE,URINE NEGATIVE (NEGATIVE)
[2021-02-14 11:01] LABS: OPIATES, URI POSITIVE (NEGATIVE); URINE AMPHETAMINES NEGATIVE (NEGATIVE)
[2021-02-14] MEDS: DIVALPROEX SODIUM 500 MG TABLET E.C. PO SCH (21:05)
[2021-02-14] MEDS: ATORVASTATIN CA 20 MG TABLET (FP) PO SCH (21:05)
[2021-02-15] MEDS: LACTATED RINGERS SOLUTION 1,000 ML/1,000 ML INFUS.BAG IV SCH (03:30)
[2021-02-15] MEDS ORDERED: FAMOTIDINE 10 MG TABLET PO ONE (05:08)
[2021-02-15] MEDS: HEPARIN NA (PORCINE) 5,000 UNITS/ML 1ML VIAL SQ SCH ×3 (05:38→21:01)
[2021-02-15 08:51] LABS: EOS % 0.6 % (0-4.5); HEMATOCRIT 40.9 % (35.4-49); HEMOGLOBIN 13.8 GM/dL (11.7-16.9); LYMPH % 33.9 % (8-40); MCH 28.1 pg (25.7-33.7); MCHC 33.7 g/dl (32.0-35.9); MEAN CELL VOLUME 83.3 fl (80-96); MEAN PLT VOLUME 8.9 fl (7.5-11.1); MONO % 8.7 % (3.8-10.2); NEUT % 55.8 % (42.8-82.8); PLATELET COUNT 277 10^3/uL (134-434); RBC 4.91 M/mm3 (4.00-5.60); RDW 14.4 % (11.9-15.9); WHITE BLOOD COUNT 7.8 K/mm3 (4.0-10.0)
[2021-02-15 09:19] LABS: MAGNESIUM 2.1 mg/dL (1.8-2.4)
[2021-02-15 09:23] LABS: PHOSPHOROUS 2.9 mg/dL (2.5-4.9)
[2021-02-15 09:24] LABS: BILIRUBIN,TOTAL 0.3 mg/dL (0.2-1)
[2021-02-15] MEDS: THIAMINE HCL 100 MG TABLET (FP) PO SCH (10:46)
[2021-02-15] MEDS: DIVALPROEX SODIUM 500 MG TABLET E.C. PO SCH (10:46)
[2021-02-15] MEDS: FOLIC ACID 1 MG TABLET (FP) PO SCH (10:46)
[2021-02-15] MEDS: PANTOPRAZOLE 40 MG TABLET PO SCH (10:46)
[2021-02-15] MEDS ORDERED: ACETAMINOPHEN 325 MG TABLET (FP) PO ONE (14:44)
[2021-02-15] MEDS: ATORVASTATIN CA 20 MG TABLET (FP) PO SCH (21:01)
[2021-02-16] MEDS: LACTATED RINGERS SOLUTION 1,000 ML/1,000 ML INFUS.BAG IV SCH (05:53)
[2021-02-16] MEDS: HEPARIN NA (PORCINE) 5,000 UNITS/ML 1ML VIAL SQ SCH ×3 (05:54→21:25)
[2021-02-16] MEDS ORDERED: PT OWN MED DRAWER 7, Y5N ONE ×2 (09:10→12:06)
[2021-02-16] MEDS: FOLIC ACID 1 MG TABLET (FP) PO SCH (09:15)
[2021-02-16] MEDS: THIAMINE HCL 100 MG TABLET (FP) PO SCH (09:15)
[2021-02-16] MEDS: PANTOPRAZOLE 40 MG TABLET PO SCH (09:16)
[2021-02-16] MEDS ORDERED: ACETAMINOPHEN 325 MG TABLET (FP) PO PRN (09:17)
[2021-02-16 09:40] LABS: EOS % 1.4 % (0-4.5); HEMATOCRIT 41.7 % (35.4-49); HEMOGLOBIN 13.9 GM/dL (11.7-16.9); LYMPH % 47.4 % (8-40); MCH 28.4 pg (25.7-33.7); MCHC 33.4 g/dl (32.0-35.9); MEAN CELL VOLUME 84.9 fl (80-96); MEAN PLT VOLUME 9.1 fl (7.5-11.1); MONO % 6.1 % (3.8-10.2); NEUT % 44.1 % (42.8-82.8); PLATELET COUNT 260 10^3/uL (134-434); RBC 4.91 M/mm3 (4.00-5.60); RDW 14.2 % (11.9-15.9); WHITE BLOOD COUNT 6.4 K/mm3 (4.0-10.0)
[2021-02-16] MEDS ORDERED: VERAPAMIL HCL 240 MG E.R. TABLET PO SCH (10:00)
[2021-02-16 10:06] LABS: CALCIUM 10.1 mg/dL (8.5-10.1)
[2021-02-16 10:07] LABS: BLOOD UREA NITROGEN 10.8 mg/dL (7-18)
[2021-02-16] MEDS ORDERED: ACETAMINOPHEN/CAFFEINE/BUTALBITAL 1 TAB PO PRN (13:39)
[2021-02-16] MEDS ORDERED: morphine SULFATE 4 MG/ML VIAL IVPUSH ONE (13:39)
[2021-02-16] MEDS ORDERED: morphine SULFATE 4 MG/ML VIAL IVPUSH PRN (17:27)
[2021-02-16] MEDS ORDERED: SUMATRIPTAN SUCCINATE 6 MG/0.5 ML VIAL SQ PRN (20:24)
[2021-02-16] MEDS: ATORVASTATIN CA 20 MG TABLET (FP) PO SCH (21:25)
[2021-02-17] MEDS: HEPARIN NA (PORCINE) 5,000 UNITS/ML 1ML VIAL SQ SCH ×2 (05:00→13:20)
[2021-02-17 09:09] LABS: BASO % 0.6 % (0-2.0); EOS % 0.7 % (0-4.5); HEMOGLOBIN 12.9 GM/dL (11.7-16.9); LYMPH % 47.7 % (8-40); MCH 27.9 pg (25.7-33.7); MCHC 33.1 g/dl (32.0-35.9); MEAN CELL VOLUME 84.3 fl (80-96); MEAN PLT VOLUME 9.3 fl (7.5-11.1); MONO % 7.4 % (3.8-10.2); NEUT % 43.6 % (42.8-82.8); PLATELET COUNT 252 10^3/uL (134-434); RBC 4.63 M/mm3 (4.00-5.60); RDW 14.2 % (11.9-15.9); WHITE BLOOD COUNT 6.4 K/mm3 (4.0-10.0)
[2021-02-17] MEDS ORDERED: PT OWN MED DRAWER 7, Y5N ONE (09:27)
[2021-02-17 09:42] LABS: ALBUMIN 3.7 g/dl (3.4-5.0); CALCIUM 9.9 mg/dL (8.5-10.1)
[2021-02-17 09:43] LABS: BLOOD UREA NITROGEN 7.9 mg/dL (7-18); MAGNESIUM 1.6 mg/dL (1.8-2.4)
[2021-02-17 09:45] LABS: BILIRUBIN,TOTAL 0.3 mg/dL (0.2-1); TOT PROT 7.1 g/dl (6.4-8.2)
[2021-02-17 09:46] LABS: CREATININE 0.9 mg/dL (0.55-1.3); PHOSPHOROUS 2.9 mg/dL (2.5-4.9)
[2021-02-17] MEDS: FOLIC ACID 1 MG TABLET (FP) PO SCH (09:53)
[2021-02-17] MEDS: PANTOPRAZOLE 40 MG TABLET PO SCH (09:53)
[2021-02-17] MEDS: THIAMINE HCL 100 MG TABLET (FP) PO SCH (09:53)
[2021-02-17 18:19] VITALS: BP 122/67; PULSE 72; TEMP 98.2
== END 2021-02-17 18:49 | disposition home or self-care (01) | DRG 103 ==
LOC: JER 14:27 → JERBED 23:34 → J5S 02-14 06:26
PROVIDERS: ADMIT Internal Medicine; ATTEND Internal Medicine
DX: G43.909 Migraine, unspecified, not intractable, without status migrainosus (principal); N17.9 Acute kidney failure, unspecified; E87.1 Hypo-osmolality and hyponatremia; K21.9 Gastro-esophageal reflux disease without esophagitis; R11.2 Nausea with vomiting, unspecified; F10.10 Alcohol abuse, uncomplicated; R55 Syncope and collapse; D72.829 Elevated white blood cell count, unspecified; E87.5 Hyperkalemia
CPT/HCPCS: 36415; 70450-TC; 71046-TC-FY; 80048; 80053; 80307; 81003; 83690; 83735; 84100; 85025; 93005; 93010; 99285-25; C9803; J0131; J1644; U0003; U0005

== ENCOUNTER 2021-02-19 02:17 | Emergency (ER) | payer OTHER ==
[2021-02-19 02:25] VITALS: TEMP 98.5; BMI 29.9
[2021-02-19] MEDS ORDERED: METOCLOPRAMIDE HCL 10 MG TABLET (FP) PO ONE ×2 (02:50→03:09)
[2021-02-19] MEDS ORDERED: ACETAMINOPHEN 500 MG TABLET (FP) PO ONE (02:51)
[2021-02-19] MEDS ORDERED: diphenhydrAMINE HCL 25 MG CAPSULE (FP) PO ONE ×2 (02:51→03:09)
[2021-02-19] MEDS ORDERED: ACETAMINOPHEN 325 MG TABLET (FP) ONE (03:08)
[2021-02-19 05:31] VITALS: BP 112/74; PULSE 73
== END 2021-02-19 05:31 | disposition home or self-care (01) ==
LOC: JER 02:17
DX: R51.9 Headache, unspecified (principal)
CPT/HCPCS: 99283-25

== ENCOUNTER 2021-02-19 22:47 | Inpatient (IN) | payer OTHER ==
[2021-02-19 23:05] VITALS: BMI 29.9
[2021-02-19] MEDS ORDERED: MAG HYDROX/AL HYDROX/SIMETH 30 ML UNIT-DOSE CUP PO ONE (23:14)
[2021-02-19] MEDS ORDERED: FAMOTIDINE 20 MG/50 ML IVPB 20 MG/50 ML MG IVPB ONE (23:14)
[2021-02-19] MEDS ORDERED: LACTATED RINGERS SOLUTION 1000 ML INFUS.BAG IV ONE (23:14)
[2021-02-19] MEDS ORDERED: SUCRALFATE 1 GM TABLET (FP) PO ONE (23:14)
[2021-02-19] MEDS ORDERED: ONDANSETRON 4 MG/2 ML VIAL IVPUSH ONE (23:14)
[2021-02-20] MEDS ORDERED: FAMOTIDINE 20 MG/50 ML IVPB 20 MG/50 ML MG IVPB ONE (00:17)
[2021-02-20] MEDS ORDERED: SUCRALFATE 1 GM TABLET (FP) ONE (00:17)
[2021-02-20] MEDS ORDERED: ONDANSETRON 4 MG/2 ML VIAL ONE (00:17)
[2021-02-20] MEDS ORDERED: MAG HYDROX/AL HYDROX/SIMETH 30 ML UNIT-DOSE CUP ONE (00:17)
[2021-02-20 01:09] LABS: BASO % 1.4 % (0-2.0); EOS % 0.3 % (0-4.5); HEMATOCRIT 51.4 % (35.4-49); HEMOGLOBIN 17.3 GM/dL (11.7-16.9); LYMPH % 13.8 % (8-40); MCH 27.7 pg (25.7-33.7); MCHC 33.7 g/dl (32.0-35.9); MEAN CELL VOLUME 82.1 fl (80-96); MEAN PLT VOLUME 8.8 fl (7.5-11.1); MONO % 5.1 % (3.8-10.2); NEUT % 79.4 % (42.8-82.8); PLATELET COUNT 410 10^3/uL (134-434); RBC 6.26 M/mm3 (4.00-5.60); RDW 14.3 % (11.9-15.9); WHITE BLOOD COUNT 14.1 K/mm3 (4.0-10.0)
[2021-02-20 01:28] LABS: BLOOD UREA NITROGEN 23.9 mg/dL (7-18); MAGNESIUM 1.8 mg/dL (1.8-2.4)
[2021-02-20 01:32] LABS: CREATININE 3.1 mg/dL (0.55-1.3)
[2021-02-20 01:33] LABS: BILIRUBIN,TOTAL 0.6 mg/dL (0.2-1)
[2021-02-20 01:38] LABS: ALBUMIN 5.8 g/dl (3.4-5.0); CALCIUM 12.1 mg/dL (8.5-10.1); TOT PROT 11.3 g/dl (6.4-8.2)
[2021-02-20] MEDS ORDERED: LACTATED RINGERS SOLUTION 1,000 ML IV STA (02:02)
[2021-02-20] MEDS ORDERED: SODIUM CHLORIDE 1,000 ML IV SCH ×2 (03:45)
[2021-02-20] MEDS ORDERED: DOXYCYCLINE INJECTION 100 MG in DEXTROSE 5%-WATER 100 ML IVPB SCH (04:00)
[2021-02-20] MEDS ORDERED: PIPERACILLIN/TAZOB 3.375 GM 3.375 GM in DEXTROSE 5%-WATER - 50 ML IVPB ONE (04:22)
[2021-02-20] MEDS ORDERED: PIPERACILLIN/TAZOB 3.375 GM 3.375 GM/50 ML BAG IVPB ONE (05:37)
[2021-02-20] MEDS ORDERED: DOXYCYCLINE HYCLATE 100 MG VIAL ONE (05:37)
[2021-02-20] MEDS ORDERED: HEPARIN NA (PORCINE) 5,000 UNITS/ML 1ML VIAL ONE (06:21)
[2021-02-20] MEDS: HEPARIN NA (PORCINE) 5,000 UNITS/ML 1ML VIAL SQ SCH ×3 (06:36→21:28)
[2021-02-20] MEDS ORDERED: ENOXAPARIN NA (PORCINE) 40 MG/0.4 ML DISP.SYRIN SQ SCH (10:00)
[2021-02-20] MEDS: PANTOPRAZOLE 40 MG TABLET PO SCH (10:39)
[2021-02-20] MEDS: MULTIVITAMINS (DAILY MVI) TABLET (FP) PO SCH (10:39)
[2021-02-20] MEDS: amLODIPine BESYLATE 5 MG TABLET (FP) PO SCH (10:39)
[2021-02-20] MEDS ORDERED: ACETAMINOPHEN 1000 MG/100 ML VIAL IVPB ONE (14:10)
[2021-02-20 15:54] LABS: EPI CELLS 23 /uL (0-25.1); HYALINE CASTS 3 /uL (0-3.1); URINE APPEARANCE TURBID; URINE BILIRUBIN 1+ (NEGATIVE); URINE COLOR DK YELLOW; URINE GLUCOSE (UA) NEGATIVE (NEGATIVE); URINE KETONE TRACE (NEGATIVE); URINE LEUK ESTERASE NEGATIVE (NEGATIVE); URINE NITRITE NEGATIVE (NEGATIVE); URINE PROTEIN 2+ (NEGATIVE); URINE RBC 19 /uL (0-23.9)
[2021-02-20 15:55] LABS: URINE BACTERIA 1.9 /uL (0-1359); URINE WBC 132.3 /uL (0-25.8)
[2021-02-20] MEDS ORDERED: LORazepam 1 MG TABLET PO ONE (19:25)
[2021-02-20 20:53] LABS: COCAINE, UR NEGATIVE (NEGATIVE); METHADONE, UR NEGATIVE (NEGATIVE); OPIATES, URI NEGATIVE (NEGATIVE); PHENCYCLIDINE,URINE NEGATIVE (NEGATIVE); URINE BENZODIAZEPINES NEGATIVE (NEGATIVE)
[2021-02-20 21:20] LABS: URINE AMPHETAMINES NEGATIVE (NEGATIVE); URINE BARBITURATES POSITIVE (NEGATIVE)
[2021-02-20] MEDS: ATORVASTATIN CA 20 MG TABLET (FP) PO SCH (21:32)
[2021-02-21] MEDS: ACETAMINOPHEN/CAFFEINE/BUTALBITAL 1 TAB PO PRN ×2 (00:23→22:43)
[2021-02-21] MEDS: HEPARIN NA (PORCINE) 5,000 UNITS/ML 1ML VIAL SQ SCH ×4 (07:02→21:35)
[2021-02-21 08:54] LABS: BASO % 0.7 % (0-2.0); EOS % 0.5 % (0-4.5); HEMATOCRIT 42.9 % (35.4-49); HEMOGLOBIN 14.6 GM/dL (11.7-16.9); LYMPH % 37.6 % (8-40); MCH 28.3 pg (25.7-33.7); MEAN CELL VOLUME 83.3 fl (80-96); MONO % 8.1 % (3.8-10.2); NEUT % 53.1 % (42.8-82.8); PLATELET COUNT 269 10^3/uL (134-434); RBC 5.14 M/mm3 (4.00-5.60); RDW 14.3 % (11.9-15.9)
[2021-02-21 08:59] LABS: BLOOD UREA NITROGEN 29.5 mg/dL (7-18)
[2021-02-21 09:03] LABS: CREATININE 1.5 mg/dL (0.55-1.3); PHOSPHOROUS 3.9 mg/dL (2.5-4.9)
[2021-02-21 09:04] LABS: BILIRUBIN,TOTAL 0.5 mg/dL (0.2-1)
[2021-02-21 09:06] LABS: ALBUMIN 4.3 g/dl (3.4-5.0); CALCIUM 10.2 mg/dL (8.5-10.1); TOT PROT 8.3 g/dl (6.4-8.2)
[2021-02-21] MEDS: MULTIVITAMINS (DAILY MVI) TABLET (FP) PO SCH (10:08)
[2021-02-21] MEDS: amLODIPine BESYLATE 5 MG TABLET (FP) PO SCH (10:08)
[2021-02-21] MEDS: PANTOPRAZOLE 40 MG TABLET PO SCH (10:08)
[2021-02-21] MEDS: SODIUM CHLORIDE 1,000 ML IV SCH (16:55)
[2021-02-21] MEDS: ATORVASTATIN CA 20 MG TABLET (FP) PO SCH (21:35)
[2021-02-22] MEDS: SODIUM CHLORIDE 1,000 ML IV SCH ×3 (03:49→16:29)
[2021-02-22] MEDS: HEPARIN NA (PORCINE) 5,000 UNITS/ML 1ML VIAL SQ SCH ×2 (05:33→13:29)
[2021-02-22 05:36] VITALS: TEMP 98.5
[2021-02-22] MEDS: PANTOPRAZOLE 40 MG TABLET PO SCH (09:46)
[2021-02-22] MEDS: MULTIVITAMINS (DAILY MVI) TABLET (FP) PO SCH (09:46)
[2021-02-22 09:49] LABS: EOS % 1.3 % (0-4.5); HEMATOCRIT 37.7 % (35.4-49); HEMOGLOBIN 12.5 GM/dL (11.7-16.9); LYMPH % 41.4 % (8-40); MCHC 33.3 g/dl (32.0-35.9); MEAN CELL VOLUME 84.1 fl (80-96); MEAN PLT VOLUME 8.9 fl (7.5-11.1); MONO % 8.8 % (3.8-10.2); NEUT % 47.5 % (42.8-82.8); PLATELET COUNT 272 10^3/uL (134-434); RBC 4.48 M/mm3 (4.00-5.60); RDW 14.2 % (11.9-15.9); WHITE BLOOD COUNT 7.8 K/mm3 (4.0-10.0)
[2021-02-22 09:50] VITALS: BP 118/58; PULSE 74
[2021-02-22 10:15] LABS: ALBUMIN 3.5 g/dl (3.4-5.0); CALCIUM 9.5 mg/dL (8.5-10.1)
[2021-02-22 10:16] LABS: BLOOD UREA NITROGEN 18.8 mg/dL (7-18)
[2021-02-22 10:19] LABS: PHOSPHOROUS 2.8 mg/dL (2.5-4.9)
[2021-02-22 10:20] LABS: BILIRUBIN,TOTAL 0.5 mg/dL (0.2-1)
[2021-02-22] MEDS: amLODIPine BESYLATE 5 MG TABLET (FP) PO SCH (11:13)
[2021-02-22] MEDS: ACETAMINOPHEN/CAFFEINE/BUTALBITAL 1 TAB PO PRN (11:56)
[2021-02-22] MEDS ORDERED: ACETAMINOPHEN 325 MG TABLET (FP) PO ONE (16:15)
== END 2021-02-22 18:27 | disposition home or self-care (01) | DRG 684 ==
LOC: JER 22:47 → JERBED 02-20 01:48 → J7W 02-20 08:09
PROVIDERS: ADMIT Internal Medicine; ATTEND Internal Medicine
DX: N17.9 Acute kidney failure, unspecified (principal); E86.0 Dehydration; I10 Essential (primary) hypertension; I95.9 Hypotension, unspecified; K21.9 Gastro-esophageal reflux disease without esophagitis; R19.7 Diarrhea, unspecified; R74.01 Elevation of levels of liver transaminase levels; R55 Syncope and collapse; E78.5 Hyperlipidemia, unspecified; D72.829 Elevated white blood cell count, unspecified; G43.909 Migraine, unspecified, not intractable, without status migrainosus
CPT/HCPCS: 36415; 70551-TC; 71046-TC-FY; 74176-TC; 76700-TC; 80048; 80053; 80307; 81003; 82550; 82553; 82570; 83036; 83735; 84100; 84156; 84300; 85025; 87040; 87086; 87340; 87517; 87651; 93005; 93010; 99285-25; C9803; J0131; J1644; U0003; U0005

== ENCOUNTER 2021-02-24 23:56 | Observation (INO) | payer OTHER ==
[2021-02-25 01:08] LABS: BASO % 0.7 % (0-2.0); EOS % 0.3 % (0-4.5); HEMATOCRIT 48.6 % (35.4-49); HEMOGLOBIN 16.3 GM/dL (11.7-16.9); LYMPH % 13.5 % (8-40); MCH 27.6 pg (25.7-33.7); MCHC 33.5 g/dl (32.0-35.9); MEAN CELL VOLUME 82.4 fl (80-96); MEAN PLT VOLUME 8.4 fl (7.5-11.1); MONO % 5.6 % (3.8-10.2); NEUT % 79.9 % (42.8-82.8); PLATELET COUNT 436 10^3/uL (134-434); RBC 5.89 M/mm3 (4.00-5.60); RDW 14.6 % (11.9-15.9); WHITE BLOOD COUNT 14.6 K/mm3 (4.0-10.0)
[2021-02-25 01:23] VITALS: BMI 27.2
[2021-02-25 01:28] LABS: CHLORIDE 95 mmol/L (98-107); SODIUM 137 mmol/L (136-145)
[2021-02-25 01:31] LABS: ANION GAP 11 MMOL/L (8-16); CO2 30 mmol/L (21-32); GLUCOSE,RANDOM 210 mg/dL (74-106); LIPASE 311 U/L (73-393); MAGNESIUM 1.9 mg/dL (1.8-2.4)
[2021-02-25 01:34] LABS: CREATININE 2.3 mg/dL (0.55-1.3); SGOT/AST 82 U/L (15-37); SGPT/ALT 124 U/L (13-61)
[2021-02-25 01:36] LABS: BILIRUBIN,TOTAL 0.4 mg/dL (0.2-1)
[2021-02-25 02:31] LABS: ALK PHOS 140 U/L (45-117); CALCIUM 11.2 mg/dL (8.5-10.1); LACTIC ACID 2.5 mmol/L (0.4-2.0); TOT PROT 9.9 g/dl (6.4-8.2)
[2021-02-25 03:11] LABS: INR 0.96 (0.83-1.09); PROTHROMBIN TIME (PATIENT) 10.8 SEC (9.7-13.0)
[2021-02-25 03:14] LABS: ACTIVATED PTT 28.5 SECONDS (25.2-36.5)
[2021-02-25 10:45] LABS: EPI CELLS 15 /uL (0-25.1); HYALINE CASTS 29 /uL (0-3.1); URINE APPEARANCE CLEAR; URINE BACTERIA 3 /uL (0-1359); URINE BILIRUBIN NEGATIVE (NEGATIVE); URINE COLOR YELLOW; URINE GLUCOSE (UA) NEGATIVE (NEGATIVE); URINE KETONE TRACE (NEGATIVE); URINE LEUK ESTERASE NEGATIVE (NEGATIVE); URINE NITRITE NEGATIVE (NEGATIVE); URINE PROTEIN 1+ (NEGATIVE); URINE RBC 9 /uL (0-23.9); URINE UROBILINOGEN 0.2 mg/dL (0.2-1.0); URINE WBC 22 /uL (0-25.8)
[2021-02-25 15:24] LABS: URINE UREA NITROGEN 576 mg/dL (350-1000)
[2021-02-25 15:27] LABS: CREATININE, URINE RANDOM > 300.0 mg/dL (30-150)
[2021-02-25 15:28] LABS: COCAINE, UR NEGATIVE (NEGATIVE); METHADONE, UR NEGATIVE (NEGATIVE); PHENCYCLIDINE,URINE NEGATIVE (NEGATIVE); URINE BENZODIAZEPINES NEGATIVE (NEGATIVE)
[2021-02-25 15:44] LABS: OPIATES, URI NEGATIVE (NEGATIVE); URINE AMPHETAMINES NEGATIVE (NEGATIVE); URINE BARBITURATES POSITIVE (NEGATIVE)
[2021-02-25 19:07] LABS: BASO % 0.6 % (0-2.0); EOS % 0.4 % (0-4.5); HEMATOCRIT 37.4 % (35.4-49); HEMOGLOBIN 12.2 GM/dL (11.7-16.9); MCH 27.2 pg (25.7-33.7); MCHC 32.5 g/dl (32.0-35.9); MEAN CELL VOLUME 83.6 fl (80-96); MEAN PLT VOLUME 8.6 fl (7.5-11.1); MONO % 4.6 % (3.8-10.2); NEUT % 73.4 % (42.8-82.8); PLATELET COUNT 303 10^3/uL (134-434); RBC 4.48 M/mm3 (4.00-5.60); RDW 14.3 % (11.9-15.9); WHITE BLOOD COUNT 13.8 K/mm3 (4.0-10.0)
[2021-02-25 19:24] LABS: CHLORIDE 97 mmol/L (98-107); SODIUM 134 mmol/L (136-145)
[2021-02-25 19:27] LABS: GLUCOSE,RANDOM 149 mg/dL (74-106)
[2021-02-25 19:28] LABS: ANION GAP 9 MMOL/L (8-16); CO2 28 mmol/L (21-32); MAGNESIUM 1.5 mg/dL (1.8-2.4)
[2021-02-25 19:29] LABS: BLOOD UREA NITROGEN 17.2 mg/dL (7-18)
[2021-02-25 19:31] LABS: CREATININE 1.4 mg/dL (0.55-1.3); SGPT/ALT 72 U/L (13-61)
[2021-02-25 19:32] LABS: PHOSPHOROUS 2.7 mg/dL (2.5-4.9); SGOT/AST 35 U/L (15-37)
[2021-02-25 19:33] LABS: BILIRUBIN,TOTAL 0.4 mg/dL (0.2-1)
[2021-02-25 19:54] LABS: ALBUMIN 3.6 g/dl (3.4-5.0); ALK PHOS 110 U/L (45-117); TOT PROT 7.3 g/dl (6.4-8.2)
[2021-02-25 19:55] LABS: LACTIC ACID 2.4 mmol/L (0.4-2.0)
[2021-02-26 00:42] LABS: LACTIC ACID 2.9 mmol/L (0.4-2.0)
[2021-02-26 09:53] LABS: BASO % 0.7 % (0-2.0); EOS % 0.9 % (0-4.5); HEMATOCRIT 34.8 % (35.4-49); HEMOGLOBIN 11.8 GM/dL (11.7-16.9); LYMPH % 27.8 % (8-40); MCH 28.3 pg (25.7-33.7); MCHC 33.9 g/dl (32.0-35.9); MEAN CELL VOLUME 83.6 fl (80-96); MEAN PLT VOLUME 8.6 fl (7.5-11.1); MONO % 6.5 % (3.8-10.2); NEUT % 64.1 % (42.8-82.8); PLATELET COUNT 291 10^3/uL (134-434); RBC 4.17 M/mm3 (4.00-5.60); RDW 14.1 % (11.9-15.9); WHITE BLOOD COUNT 8.3 K/mm3 (4.0-10.0)
[2021-02-26 10:21] LABS: CALCIUM 9.2 mg/dL (8.5-10.1)
[2021-02-26 10:22] LABS: ALBUMIN 3.4 g/dl (3.4-5.0); BLOOD UREA NITROGEN 9.2 mg/dL (7-18)
[2021-02-26 10:23] LABS: ALBUMIN 3.3 g/dl (3.4-5.0); CALCIUM 9.4 mg/dL (8.5-10.1)
[2021-02-26 10:24] LABS: BILIRUBIN,TOTAL 0.4 mg/dL (0.2-1); BLOOD UREA NITROGEN 9.8 mg/dL (7-18); MAGNESIUM 1.6 mg/dL (1.8-2.4)
[2021-02-26 10:25] LABS: TOT PROT 6.6 g/dl (6.4-8.2)
[2021-02-26 10:26] LABS: BILIRUBIN,DIRECT 0.1 mg/dL (0.0-0.2)
[2021-02-26 10:27] LABS: BILIRUBIN,TOTAL 0.4 mg/dL (0.2-1); TOT PROT 6.6 g/dl (6.4-8.2)
[2021-02-27 10:49] LABS: BASO % 0.7 % (0-2.0); EOS % 2.6 % (0-4.5); HEMATOCRIT 34.4 % (35.4-49); HEMOGLOBIN 11.5 GM/dL (11.7-16.9); LYMPH % 31.6 % (8-40); MCH 27.8 pg (25.7-33.7); MCHC 33.4 g/dl (32.0-35.9); MEAN CELL VOLUME 83.5 fl (80-96); MEAN PLT VOLUME 8.7 fl (7.5-11.1); MONO % 4.7 % (3.8-10.2); NEUT % 60.4 % (42.8-82.8); PLATELET COUNT 281 10^3/uL (134-434); RBC 4.12 M/mm3 (4.00-5.60); RDW 14.3 % (11.9-15.9); WHITE BLOOD COUNT 7.4 K/mm3 (4.0-10.0)
[2021-02-27 11:19] LABS: BLOOD UREA NITROGEN 6.1 mg/dL (7-18); CALCIUM 8.9 mg/dL (8.5-10.1); MAGNESIUM 1.6 mg/dL (1.8-2.4)
[2021-02-27 11:22] LABS: CREATININE 0.9 mg/dL (0.55-1.3)
[2021-02-27 11:23] LABS: PHOSPHOROUS 2.7 mg/dL (2.5-4.9)
[2021-02-27 11:24] LABS: BILIRUBIN,TOTAL 0.2 mg/dL (0.2-1); TOT PROT 6.1 g/dl (6.4-8.2)
[2021-02-27 17:30] VITALS: BP 110/58; PULSE 67; TEMP 98
== END 2021-02-27 18:18 | disposition home or self-care (01) ==
LOC: JER 23:56 → JERBED 02-25 01:41 → UNDOADMOB 02-25 01:41 → INTOOBSV 02-25 01:41 → J4W 02-25 15:47 → JERBED 02-25 15:47 → J4W 02-25 17:23 → J5S 02-25 17:23 → J4W 02-26 13:12 → J5S 02-26 13:12
PROVIDERS: ADMIT Internal Medicine; ATTEND Internal Medicine
PROC: 3E033GC Introduction of Other Therapeutic Substance into Peripheral Vein, Percutaneous Approach (ICD-10-PCS; principal; 2021-02-26)
PROC: 3E033NZ Introduction of Analgesics, Hypnotics, Sedatives into Peripheral Vein, Percutaneous Approach (ICD-10-PCS; 2021-02-26)
PROC: 3E0337Z Introduction of Electrolytic and Water Balance Substance into Peripheral Vein, Percutaneous Approach (ICD-10-PCS; 2021-02-26)
DX: N17.9 Acute kidney failure, unspecified (principal); F10.99 Alcohol use, unspecified with unspecified alcohol-induced disorder; K21.9 Gastro-esophageal reflux disease without esophagitis; G43.909 Migraine, unspecified, not intractable, without status migrainosus; E78.5 Hyperlipidemia, unspecified; R56.9 Unspecified convulsions; K76.0 Fatty (change of) liver, not elsewhere classified; R63.0 Anorexia; R19.5 Other fecal abnormalities; Z87.19 Personal history of other diseases of the digestive system; K20.90 Esophagitis, unspecified without bleeding; E16.4 Increased secretion of gastrin; J40 Bronchitis, not specified as acute or chronic; K57.92 Diverticulitis of intestine, part unspecified, without perforation or abscess without bleeding; E87.6 Hypokalemia; E83.42 Hypomagnesemia; E87.2 Acidosis; E83.52 Hypercalcemia; Z90.49 Acquired absence of other specified parts of digestive tract; E86.0 Dehydration; Z91.013 Allergy to seafood
CPT/HCPCS: 36415; 71045-TC-FY; 80048; 80053; 80076; 80307; 81003; 82436; 82550; 82570; 83540; 83550; 83605; 83690; 83735; 84100; 84105; 84300; 84484; 84540; 85025; 85610; 85730; 86140; 86850; 86900; 86901; 87040; 87086; 88305-TC; 93005; 93010; 96361; 96365; 96366; 96367; 96375; 99285-25; C9803; G0378; J0131; U0003; U0005

== ENCOUNTER 2021-03-03 04:08 | Observation (INO) | payer OTHER ==
[2021-03-03 04:17] VITALS: BMI 26.6
[2021-03-03] MEDS ORDERED: ONDANSETRON 4 MG/2 ML VIAL IVPUSH ONE (04:18)
[2021-03-03] MEDS ORDERED: FAMOTIDINE 20 MG/50 ML IVPB 20 MG/50 ML MG IVPB ONE ×2 (04:18→04:28)
[2021-03-03] MEDS ORDERED: SODIUM CHLORIDE 0.9% 500 ML INFUS.BAG IV ONE (04:18)
[2021-03-03] MEDS ORDERED: ONDANSETRON 4 MG/2 ML VIAL ONE (04:28)
[2021-03-03 04:58] LABS: BASO % 0.4 % (0-2.0); EOS % 0.2 % (0-4.5); HEMATOCRIT 46.5 % (35.4-49); HEMOGLOBIN 15.6 GM/dL (11.7-16.9); LYMPH % 15.2 % (8-40); MCH 27.7 pg (25.7-33.7); MCHC 33.5 g/dl (32.0-35.9); MEAN CELL VOLUME 82.6 fl (80-96); MEAN PLT VOLUME 8.6 fl (7.5-11.1); MONO % 4.5 % (3.8-10.2); NEUT % 79.7 % (42.8-82.8); PLATELET COUNT 490 10^3/uL (134-434); RBC 5.63 M/mm3 (4.00-5.60); RDW 14.3 % (11.9-15.9); WHITE BLOOD COUNT 14.2 K/mm3 (4.0-10.0)
[2021-03-03 04:59] LABS: INR 1.06 (0.83-1.09); PROTHROMBIN TIME (PATIENT) 11.9 SEC (9.7-13.0)
[2021-03-03 05:21] LABS: LACTIC ACID 2.7 mmol/L (0.4-2.0)
[2021-03-03 05:24] LABS: ALBUMIN 5.2 g/dl (3.4-5.0); ALK PHOS 142 U/L (45-117); ANION GAP 14 MMOL/L (8-16); BILIRUBIN,TOTAL 0.3 mg/dL (0.2-1); BLOOD UREA NITROGEN 18.1 mg/dL (7-18); CHLORIDE 94 mmol/L (98-107); CO2 29 mmol/L (21-32); CREATININE 2.8 mg/dL (0.55-1.3); GLUCOSE,RANDOM 211 mg/dL (74-106); LIPASE 265 U/L (73-393); MAGNESIUM 1.1 mg/dL (1.8-2.4); SGOT/AST 51 U/L (15-37); SGPT/ALT 91 U/L (13-61); SODIUM 137 mmol/L (136-145); TOT PROT 9.6 g/dl (6.4-8.2)
[2021-03-03] MEDS ORDERED: POTASSIUM CHLORIDE TABS 20 MEQ TABLET.ER (FP) PO ONE ×2 (05:26→06:08)
[2021-03-03] MEDS ORDERED: MAGNESIUM SULF 50% (8.12 MEQ/2 ML-1 GM VIAL) IVPB ONE (05:27)
[2021-03-03] MEDS ORDERED: MAGNESIUM SULFATE IN WATER 2 GM/50 ML IVPB IVPB ONE (06:08)
[2021-03-03] MEDS: KCL 10 MEQ IVPB 10 MEQ/100 ML INFUS.BAG IVPB SCH ×4 (11:00→14:31)
[2021-03-03] MEDS: PANTOPRAZOLE SODIUM 40 MG VIAL IVPUSH SCH ×2 (11:47→21:11)
[2021-03-03] MEDS: MULTIVITAMINS (DAILY MVI) TABLET (FP) PO SCH (11:47)
[2021-03-03] MEDS: SODIUM CHLORIDE 0.9%/KCL 20 MEQ/1,000 ML INFUS.BAG IV SCH (11:48)
[2021-03-03] MEDS ORDERED: MAGNESIUM 2GM/50ML STERILE WATER IVPB IVPB ONE (14:00)
[2021-03-03] MEDS: ACETAMINOPHEN 325 MG TABLET (FP) PO PRN (17:21)
[2021-03-03] MEDS: SUMAtriptan SUCCINATE 25 MG TABLET PO PRN (19:44)
[2021-03-03] MEDS: DIVALPROEX NA *ER* EXTEND REL 500 MG TABLET.SA (FP) PO SCH (21:11)
[2021-03-03] MEDS: ATORVASTATIN CA 20 MG TABLET (FP) PO SCH (21:11)
[2021-03-04] MEDS: SODIUM CHLORIDE 0.9%/KCL 20 MEQ/1,000 ML INFUS.BAG IV SCH ×3 (08:15→12:37)
[2021-03-04] MEDS ORDERED: PT OWN MED DRAWER 7, Y5N ONE ×2 (09:30→09:42)
[2021-03-04] MEDS: DIVALPROEX NA *ER* EXTEND REL 500 MG TABLET.SA (FP) PO SCH ×2 (09:34→21:21)
[2021-03-04] MEDS: MULTIVITAMINS (DAILY MVI) TABLET (FP) PO SCH (09:34)
[2021-03-04] MEDS: PANTOPRAZOLE SODIUM 40 MG VIAL IVPUSH SCH ×2 (09:35→21:21)
[2021-03-04 10:15] LABS: BASO % 0.5 % (0-2.0); HEMATOCRIT 39.2 % (35.4-49); HEMOGLOBIN 12.8 GM/dL (11.7-16.9); LYMPH % 31.8 % (8-40); MCH 27.6 pg (25.7-33.7); MCHC 32.7 g/dl (32.0-35.9); MEAN CELL VOLUME 84.4 fl (80-96); MEAN PLT VOLUME 8.6 fl (7.5-11.1); MONO % 5.1 % (3.8-10.2); NEUT % 60.6 % (42.8-82.8); PLATELET COUNT 279 10^3/uL (134-434); RBC 4.65 M/mm3 (4.00-5.60); RDW 14.2 % (11.9-15.9); WHITE BLOOD COUNT 7.6 K/mm3 (4.0-10.0)
[2021-03-04 10:55] LABS: LACTIC ACID 3.5 mmol/L (0.4-2.0)
[2021-03-04] MEDS: ACETAMINOPHEN 325 MG TABLET (FP) PO PRN (11:29)
[2021-03-04 11:41] LABS: ALBUMIN 3.6 g/dl (3.4-5.0); BILIRUBIN,TOTAL 0.4 mg/dL (0.2-1); CALCIUM 9.4 mg/dL (8.5-10.1); CREATININE 1.2 mg/dL (0.55-1.3); PHOSPHOROUS 3.2 mg/dL (2.5-4.9); TOT PROT 7.1 g/dl (6.4-8.2)
[2021-03-04 11:54] LABS: MAGNESIUM 2.2 mg/dL (1.8-2.4)
[2021-03-04 16:52] LABS: PH,URINE 6.5 (5.0-8.0); URINE APPEARANCE CLEAR; URINE BILIRUBIN NEGATIVE (NEGATIVE); URINE COLOR YELLOW; URINE GLUCOSE (UA) NEGATIVE (NEGATIVE); URINE KETONE NEGATIVE (NEGATIVE); URINE LEUK ESTERASE NEGATIVE (NEGATIVE); URINE NITRITE NEGATIVE (NEGATIVE); URINE PROTEIN TRACE (NEGATIVE)
[2021-03-04] MEDS: ATORVASTATIN CA 20 MG TABLET (FP) PO SCH (21:21)
[2021-03-05] MEDS: SUMAtriptan SUCCINATE 25 MG TABLET PO PRN (01:51)
[2021-03-05] MEDS: ACETAMINOPHEN 325 MG TABLET (FP) PO PRN ×2 (01:52→10:34)
[2021-03-05] MEDS ORDERED: SUMAtriptan SUCCINATE 25 MG TABLET PO ONE (02:02)
[2021-03-05] MEDS: SODIUM CHLORIDE 0.9%/KCL 20 MEQ/1,000 ML INFUS.BAG IV SCH ×3 (02:48→15:53)
[2021-03-05] MEDS ORDERED: PT OWN MED DRAWER 7, Y5N ONE ×3 (10:21→16:36)
[2021-03-05] MEDS: MULTIVITAMINS (DAILY MVI) TABLET (FP) PO SCH (10:27)
[2021-03-05] MEDS: PANTOPRAZOLE SODIUM 40 MG VIAL IVPUSH SCH ×2 (10:27→21:10)
[2021-03-05] MEDS: DIVALPROEX NA *ER* EXTEND REL 500 MG TABLET.SA (FP) PO SCH ×2 (10:27→21:10)
[2021-03-05] MEDS ORDERED: ACETAMINOPHEN/CAFFEINE/BUTALBITAL 1 TAB PO ONE (12:01)
[2021-03-05] MEDS ORDERED: VANCOMYCIN 1 GM in D5W (PRE-DOCKED) 1,000 MG/250 ML IVPB ONE (12:47)
[2021-03-05] MEDS: ATORVASTATIN CA 20 MG TABLET (FP) PO SCH (21:10)
[2021-03-06] MEDS: ACETAMINOPHEN 325 MG TABLET (FP) PO PRN ×2 (00:33→17:36)
[2021-03-06] MEDS: SODIUM CHLORIDE 0.9%/KCL 20 MEQ/1,000 ML INFUS.BAG IV SCH ×2 (04:09→12:13)
[2021-03-06 08:53] LABS: BASO % 0.6 % (0-2.0); HEMATOCRIT 34.5 % (35.4-49); HEMOGLOBIN 11.3 GM/dL (11.7-16.9); LYMPH % 41.5 % (8-40); MCH 27.6 pg (25.7-33.7); MCHC 32.8 g/dl (32.0-35.9); MEAN CELL VOLUME 84.3 fl (80-96); MEAN PLT VOLUME 8.6 fl (7.5-11.1); MONO % 5.3 % (3.8-10.2); NEUT % 50.6 % (42.8-82.8); PLATELET COUNT 278 10^3/uL (134-434); RBC 4.09 M/mm3 (4.00-5.60); RDW 14.1 % (11.9-15.9); WHITE BLOOD COUNT 6.8 K/mm3 (4.0-10.0)
[2021-03-06 09:16] LABS: BLOOD UREA NITROGEN 9.1 mg/dL (7-18)
[2021-03-06 09:17] LABS: MAGNESIUM 1.6 mg/dL (1.8-2.4)
[2021-03-06 09:19] LABS: CREATININE 0.8 mg/dL (0.55-1.3)
[2021-03-06] MEDS ORDERED: PT OWN MED DRAWER 7, Y5N ONE ×4 (10:08→16:58)
[2021-03-06] MEDS: DIVALPROEX NA *ER* EXTEND REL 500 MG TABLET.SA (FP) PO SCH (10:13)
[2021-03-06] MEDS: PANTOPRAZOLE SODIUM 40 MG VIAL IVPUSH SCH (10:13)
[2021-03-06] MEDS: MULTIVITAMINS (DAILY MVI) TABLET (FP) PO SCH (10:13)
[2021-03-06] MEDS: SUMAtriptan SUCCINATE 25 MG TABLET PO PRN ×2 (10:47→17:47)
[2021-03-06] MEDS ORDERED: MAGNESIUM SULF 50% (8.12 MEQ/2 ML-1 GM VIAL) IVPB ONE (15:02)
[2021-03-06] MEDS ORDERED: AMOXICILLIN 500 MG CAPSULE (FP) PO SCH (15:30)
[2021-03-06 16:10] VITALS: BP 113/61; PULSE 79; TEMP 98
== END 2021-03-06 18:51 | disposition home or self-care (01) ==
LOC: JER 04:08 → JERBED 06:11 → INTOOBSV 06:11 → UNDOADMOB 06:11 → JERBED 09:25 → J8W 10:23
PROVIDERS: ADMIT Internal Medicine; ATTEND Internal Medicine
PROC: 3E033GC Introduction of Other Therapeutic Substance into Peripheral Vein, Percutaneous Approach (ICD-10-PCS; principal; 2021-03-03)
PROC: 3E03329 Introduction of Other Anti-infective into Peripheral Vein, Percutaneous Approach (ICD-10-PCS; 2021-03-03)
PROC: 3E0337Z Introduction of Electrolytic and Water Balance Substance into Peripheral Vein, Percutaneous Approach (ICD-10-PCS; 2021-03-03)
DX: N17.9 Acute kidney failure, unspecified (principal); K21.9 Gastro-esophageal reflux disease without esophagitis; K57.92 Diverticulitis of intestine, part unspecified, without perforation or abscess without bleeding; K29.20 Alcoholic gastritis without bleeding; F10.10 Alcohol abuse, uncomplicated; G40.89 Other seizures; Z86.16 Personal history of COVID-19; D72.829 Elevated white blood cell count, unspecified; R11.10 Vomiting, unspecified; R19.7 Diarrhea, unspecified; K25.4 Chronic or unspecified gastric ulcer with hemorrhage; E87.2 Acidosis; K76.0 Fatty (change of) liver, not elsewhere classified; E87.6 Hypokalemia; E83.42 Hypomagnesemia; E83.52 Hypercalcemia; J12.82 Pneumonia due to coronavirus disease 2019; Z91.013 Allergy to seafood
CPT/HCPCS: 36415; 71045-TC-FY; 71250-TC; 74176-TC; 80048; 80053; 80307; 81003; 82550; 82962; 83605; 83690; 83735; 84100; 84484; 85025; 85610; 87086; 87186; 93005; 93010; 96361; 96365; 96375; 96376; 99285-25; C9803; G0378; U0003; U0005

== ENCOUNTER 2022-01-08 16:40 | Emergency (ER) | payer OTHER ==
[2022-01-08 16:57] VITALS: TEMP 97.5; BMI 29.7
[2022-01-08] MEDS ORDERED: LACTATED RINGERS SOLUTION 1000 ML INFUS.BAG IV ONE ×2 (17:14→19:24)
[2022-01-08] MEDS ORDERED: methylPREDNISolone NA SUCC 125 MG/2 ML VIAL IVPB ONE (17:23)
[2022-01-08] MEDS ORDERED: FAMOTIDINE 20 MG/50 ML IVPB 20 MG/50 ML MG IVPB ONE ×2 (17:23→17:56)
[2022-01-08] MEDS ORDERED: SODIUM CHLORIDE 0.9% 500 ML INFUS.BAG IV ONE (17:53)
[2022-01-08] MEDS ORDERED: methylPREDNISolone NA SUCC 125 MG/2 ML VIAL ONE (17:56)
[2022-01-08 18:34] VITALS: RESP 20
[2022-01-08 18:35] VITALS: BP 112/78; PULSE 89
[2022-01-08 18:47] LABS: BASO % 0.5 % (0-2.0); EOS % 0.9 % (0-4.5); HEMATOCRIT 37.7 % (35.4-49); HEMOGLOBIN 12.6 GM/dL (11.7-16.9); LYMPH % 22.4 % (8-40); MCH 28.2 pg (25.7-33.7); MCHC 33.5 g/dl (32.0-35.9); MEAN CELL VOLUME 84.2 fl (80-96); MEAN PLT VOLUME 8.9 fl (7.5-11.1); NEUT % 66.2 % (42.8-82.8); PLATELET COUNT 202 10^3/uL (134-434); RBC 4.47 M/mm3 (4.00-5.60); RDW 14.8 % (11.9-15.9); WHITE BLOOD COUNT 7.7 K/mm3 (4.0-10.0)
[2022-01-08 18:52] LABS: INR 0.89 (0.83-1.09); PROTHROMBIN TIME (PATIENT) 10.2 SEC (9.7-13.0)
[2022-01-08 18:55] LABS: ACTIVATED PTT 32.1 SECONDS (25.2-36.5)
[2022-01-08 18:58] LABS: VENOUS BASE EXCESS -2.5 mmol/L (-2-2); VENOUS PCO2 43.8 mmHg (38-52); VENOUS PH 7.342 (7.310-7.410)
[2022-01-08 19:07] LABS: ALBUMIN 2.9 g/dl (3.4-5.0); CALCIUM 9.5 mg/dL (8.5-10.1)
[2022-01-08 19:08] LABS: BLOOD UREA NITROGEN 6.1 mg/dL (7-18)
[2022-01-08 19:10] LABS: CREATININE 1.6 mg/dL (0.55-1.3)
[2022-01-08 19:12] LABS: BILIRUBIN,TOTAL 0.8 mg/dL (0.2-1); TOT PROT 7.4 g/dl (6.4-8.2)
[2022-01-08 21:51] LABS: BLOOD UREA NITROGEN 5.8 mg/dL (7-18); CALCIUM 8.8 mg/dL (8.5-10.1)
[2022-01-08 21:55] LABS: CREATININE 1.1 mg/dL (0.55-1.3)
== END 2022-01-08 22:31 | disposition home or self-care (01) ==
LOC: JER 16:40
PROC: 3E033GC Introduction of Other Therapeutic Substance into Peripheral Vein, Percutaneous Approach (ICD-10-PCS; principal; 2022-01-08)
PROC: 3E033GC Introduction of Other Therapeutic Substance into Peripheral Vein, Percutaneous Approach (ICD-10-PCS; 2022-01-08)
DX: T78.40XA Allergy, unspecified, initial encounter (principal)
CPT/HCPCS: 36415; 71045-TC-FY; 71275-TC; 80048; 80053; 82803; 83690; 83735; 85025; 85610; 85730; 86850; 86900; 86901; 93005; 93010; 99285-25

== ENCOUNTER 2022-02-22 11:28 | Emergency (ER) | payer OTHER ==
[2022-02-22 11:49] VITALS: BP 170/86; PULSE 82; RESP 18; TEMP 97.7; BMI 33.4
[2022-02-22] MEDS ORDERED: diphenhydrAMINE HCL 25 MG CAPSULE (FP) PO ONE ×2 (12:48→13:07)
[2022-02-22] MEDS ORDERED: LIDOCAINE 5% TOPICAL PATCH TP ONE (12:48)
[2022-02-22] MEDS ORDERED: ACETAMINOPHEN 500 MG TABLET (FP) PO ONE (12:48)
[2022-02-22] MEDS ORDERED: ACETAMINOPHEN 325 MG TABLET (FP) ONE (13:08)
[2022-02-22] MEDS ORDERED: LIDOCAINE 5% TOPICAL PATCH ONE (13:08)
[2022-02-22] MEDS ORDERED: LIDOCAINE PATCH REMOVAL MC SCH (22:00)
== END 2022-02-22 16:12 | disposition home or self-care (01) ==
LOC: JER 11:28
DX: R22.43 Localized swelling, mass and lump, lower limb, bilateral (principal); R22.33 Localized swelling, mass and lump, upper limb, bilateral; I10 Essential (primary) hypertension
CPT/HCPCS: 99283-25

== ENCOUNTER 2022-07-14 16:47 | Inpatient (IN) | payer OTHER ==
[2022-07-14] MEDS ORDERED: SODIUM CHLORIDE 500 ML IV STA (17:04)
[2022-07-14 17:06] VITALS: BMI 38.0
[2022-07-14] MEDS ORDERED: FAMOTIDINE 20 MG/50 ML IVPB 20 MG/50 ML MG IVPB ONE ×2 (17:06→17:32)
[2022-07-14] MEDS ORDERED: ALBUTEROL SO4 2.5/IPRATROPIUM 0.5 INH SOL 3 ML VIAL.NEB. NEB ONE ×2 (17:06→17:32)
[2022-07-14 17:56] LABS: BASO % 0.5 % (0-2.0); EOS % 0.4 % (0-4.5); HEMATOCRIT 41.2 % (35.4-49); HEMOGLOBIN 13.8 GM/dL (11.7-16.9); LYMPH % 24.1 % (8-40); MCH 27.8 pg (25.7-33.7); MCHC 33.6 g/dl (32.0-35.9); MEAN PLT VOLUME 8.3 fl (7.5-11.1); MONO % 6.2 % (3.8-10.2); NEUT % 68.8 % (42.8-82.8); PLATELET COUNT 269 10^3/uL (134-434); RBC 4.97 M/mm3 (4.00-5.60); RDW 18.1 % (11.9-15.9); WHITE BLOOD COUNT 8.6 K/mm3 (4.0-10.0)
[2022-07-14 18:03] LABS: INR 1.02 (0.83-1.09); PROTHROMBIN TIME (PATIENT) 11.8 SEC (9.7-13.0)
[2022-07-14 18:05] LABS: ACTIVATED PTT 26.5 SECONDS (25.2-36.5)
[2022-07-14] MEDS ORDERED: levETIRAcetam 500 MG/5 ML INJECTION VIAL IVPB ONE ×2 (18:11→18:39)
[2022-07-14 18:12] LABS: CALCIUM 8.5 mg/dL (8.5-10.1)
[2022-07-14 18:13] LABS: ALBUMIN 4.4 g/dl (3.4-5.0); BLOOD UREA NITROGEN 10.7 mg/dL (7-18); MAGNESIUM 1.3 mg/dL (1.8-2.4)
[2022-07-14 18:16] LABS: CREATININE 1.7 mg/dL (0.55-1.3)
[2022-07-14 18:18] LABS: BILIRUBIN,TOTAL 0.5 mg/dL (0.2-1); TOT PROT 9.1 g/dl (6.4-8.2)
[2022-07-14 18:19] LABS: N-TERMINAL BNP 8.2 pg/ml (5-125)
[2022-07-14 18:32] LABS: LACTIC ACID 5.2 mmol/L (0.4-2.0)
[2022-07-14] MEDS ORDERED: POTASSIUM CHLORIDE ORAL LIQUID 20 MEQ/15 ML PO ONE (18:38)
[2022-07-14] MEDS ORDERED: MAGNESIUM SULF 50% (8.12 MEQ/2 ML-1 GM VIAL) IVPB ONE (18:38)
[2022-07-14] MEDS ORDERED: POTASSIUM CHLORIDE ORAL LIQUID 20 MEQ/15 ML ONE (18:47)
[2022-07-14] MEDS ORDERED: MAGNESIUM SULFATE IN WATER 2 GM/50 ML IVPB IVPB ONE (18:47)
[2022-07-14] MEDS ORDERED: SODIUM CHLORIDE 0.9% 500 ML INFUS.BAG IV ONE (19:02)
[2022-07-14] MEDS ORDERED: KCL 10 MEQ IVPB 30 MEQ/300 ML INFUS.BAG IVPB ONE (19:54)
[2022-07-14] MEDS: KCL 10 MEQ IVPB 10 MEQ/100 ML INFUS.BAG IVPB SCH ×2 (20:05→22:26)
[2022-07-14] MEDS ORDERED: LORazepam 1 MG TABLET PO PRN (23:31)
[2022-07-15] MEDS ORDERED: LORazepam 1 MG TABLET ONE ×2 (00:13→07:37)
[2022-07-15] MEDS: LORazepam 2 MG TABLET PO SCH ×2 (00:32→07:40)
[2022-07-15] MEDS ORDERED: SODIUM CHLORIDE 1,000 ML IV SCH (00:45)
[2022-07-15] MEDS ORDERED: MAGNESIUM SULF 50% (8.12 MEQ/2 ML-1 GM VIAL) IVPB ONE (01:06)
[2022-07-15] MEDS ORDERED: MAGNESIUM SULFATE IN WATER 2 GM/50 ML IVPB IVPB ONE (01:48)
[2022-07-15] MEDS: KCL 10 MEQ IVPB 10 MEQ/100 ML INFUS.BAG IVPB SCH (01:55)
[2022-07-15] MEDS: HEPARIN NA (PORCINE) 5,000 UNITS/ML 1ML VIAL SQ SCH ×3 (07:39→22:33)
[2022-07-15] MEDS: INSULIN SLIDING SCALE (NOVOLOG) 1 VIAL SQ SCH ×4 (07:42→22:33)
[2022-07-15 08:59] LABS: BASO % 0.7 % (0-2.0); HEMATOCRIT 32.5 % (35.4-49); HEMOGLOBIN 11.2 GM/dL (11.7-16.9); LYMPH % 18.3 % (8-40); MCH 28.2 pg (25.7-33.7); MCHC 34.3 g/dl (32.0-35.9); MEAN CELL VOLUME 82.1 fl (80-96); MEAN PLT VOLUME 7.9 fl (7.5-11.1); MONO % 8.9 % (3.8-10.2); NEUT % 71.1 % (42.8-82.8); PLATELET COUNT 210 10^3/uL (134-434); RBC 3.95 M/mm3 (4.00-5.60); RDW 18.1 % (11.9-15.9); WHITE BLOOD COUNT 8.9 K/mm3 (4.0-10.0)
[2022-07-15 09:23] LABS: CHLORIDE 105 mmol/L (98-107); SODIUM 138 mmol/L (136-145)
[2022-07-15 09:30] LABS: BLOOD UREA NITROGEN 6.5 mg/dL (7-18); CALCIUM 7.6 mg/dL (8.5-10.1); CO2 29 mmol/L (21-32)
[2022-07-15 09:31] LABS: GLUCOSE,RANDOM 99 mg/dL (74-106); MAGNESIUM 2.2 mg/dL (1.8-2.4)
[2022-07-15 09:33] LABS: CREATININE 0.8 mg/dL (0.55-1.3); PHOSPHOROUS 2.2 mg/dL (2.5-4.9); SGPT/ALT 40 U/L (13-61)
[2022-07-15 09:34] LABS: SGOT/AST 48 U/L (15-37)
[2022-07-15 09:35] LABS: BILIRUBIN,TOTAL 1.1 mg/dL (0.2-1)
[2022-07-15 09:49] LABS: ALBUMIN 3.2 g/dl (3.4-5.0); ALK PHOS 151 U/L (45-117); ANION GAP 5 MMOL/L (8-16); TOT PROT 6.7 g/dl (6.4-8.2)
[2022-07-15] MEDS ORDERED: THIAMINE HCL 200 MG/2 ML VIAL IVPB SCH (10:00)
[2022-07-15] MEDS ORDERED: levETIRAcetam 500 MG TABLET (FP) PO SCH (10:00)
[2022-07-15] MEDS: FOLIC ACID 1 MG TABLET (FP) PO SCH (10:55)
[2022-07-15] MEDS: PANTOPRAZOLE 40 MG TABLET PO SCH (10:55)
[2022-07-15] MEDS: THIAMINE HCL 200 MG/2 ML VIAL IVPB SCH (10:55)
[2022-07-15] MEDS: MULTIVITAMINS (DAILY MVI) TABLET (FP) PO SCH (10:56)
[2022-07-15] MEDS: LORazepam 1 MG TABLET PO SCH ×3 (12:22→22:33)
[2022-07-15] MEDS ORDERED: KCL 10 MEQ IVPB 10 MEQ/100 ML INFUS.BAG IVPB SCH ×2 (13:30→14:45)
[2022-07-15] MEDS ORDERED: POTASSIUM CHLORIDE ORAL LIQUID 20 MEQ/15 ML PO ONE ×2 (14:16→22:00)
[2022-07-15] MEDS ORDERED: NAPH,MB-DB/K PH,MBDB POWDER PACKET PO ONE (14:30)
[2022-07-15] MEDS: SODIUM CHLORIDE 0.9%/KCL 20 MEQ/1,000 ML INFUS.BAG IV SCH (15:20)
[2022-07-15] MEDS ORDERED: INSULIN (NOVOLOG) ASPART 100 UNITS/ML 10ML VIAL ONE ×2 (15:48→17:16)
[2022-07-15 16:45] VITALS: RESP 18
[2022-07-15] MEDS ORDERED: POTASSIUM CHLORIDE TABS 20 MEQ TABLET.ER (FP) PO ONE (16:56)
[2022-07-15 18:38] LABS: BLOOD UREA NITROGEN 6.7 mg/dL (7-18)
[2022-07-15 18:41] LABS: CREATININE 0.8 mg/dL (0.55-1.3)
[2022-07-15 18:45] LABS: CALCIUM 8.9 mg/dL (8.5-10.1)
[2022-07-15 20:29] VITALS: BP 122/79; PULSE 86; TEMP 98.6
[2022-07-15] MEDS ORDERED: ATORVASTATIN CA 20 MG TABLET (FP) PO SCH (22:00)
[2022-07-15] MEDS: levETIRAcetam 250 MG TABLET PO SCH (22:32)
[2022-07-16] MEDS: SODIUM CHLORIDE 0.9%/KCL 20 MEQ/1,000 ML INFUS.BAG IV SCH (06:30)
[2022-07-16] MEDS: INSULIN SLIDING SCALE (NOVOLOG) 1 VIAL SQ SCH ×2 (06:31→11:56)
[2022-07-16] MEDS: HEPARIN NA (PORCINE) 5,000 UNITS/ML 1ML VIAL SQ SCH ×2 (06:31→13:21)
[2022-07-16] MEDS: LORazepam 1 MG TABLET PO SCH ×2 (06:31→10:05)
[2022-07-16 09:03] LABS: BASO % 0.6 % (0-2.0); EOS % 2.1 % (0-4.5); HEMATOCRIT 33.9 % (35.4-49); HEMOGLOBIN 11.5 GM/dL (11.7-16.9); LYMPH % 26.3 % (8-40); MCH 28.3 pg (25.7-33.7); MEAN CELL VOLUME 83.3 fl (80-96); MEAN PLT VOLUME 8.1 fl (7.5-11.1); PLATELET COUNT 212 10^3/uL (134-434); RBC 4.07 M/mm3 (4.00-5.60); RDW 17.8 % (11.9-15.9); WHITE BLOOD COUNT 7.2 K/mm3 (4.0-10.0)
[2022-07-16 09:29] LABS: CALCIUM 8.6 mg/dL (8.5-10.1)
[2022-07-16 09:30] LABS: ALBUMIN 3.2 g/dl (3.4-5.0); BLOOD UREA NITROGEN 4.9 mg/dL (7-18); MAGNESIUM 1.9 mg/dL (1.8-2.4)
[2022-07-16 09:33] LABS: CREATININE 0.7 mg/dL (0.55-1.3); PHOSPHOROUS 2.3 mg/dL (2.5-4.9)
[2022-07-16 09:34] LABS: TOT PROT 6.8 g/dl (6.4-8.2)
[2022-07-16 09:35] LABS: BILIRUBIN,TOTAL 0.6 mg/dL (0.2-1)
[2022-07-16] MEDS: MULTIVITAMINS (DAILY MVI) TABLET (FP) PO SCH (09:46)
[2022-07-16] MEDS: levETIRAcetam 250 MG TABLET PO SCH (09:46)
[2022-07-16] MEDS: THIAMINE HCL 200 MG/2 ML VIAL IVPB SCH (09:46)
[2022-07-16] MEDS: FOLIC ACID 1 MG TABLET (FP) PO SCH (09:46)
[2022-07-16] MEDS: PANTOPRAZOLE 40 MG TABLET PO SCH (09:46)
[2022-07-16] MEDS ORDERED: INSULIN (NOVOLOG MIX 70/30) 100 UNITS/ML MDV SQ ONE (18:53)
[2022-07-17] MEDS ORDERED: LORazepam 0.5 MG TABLET PO PRN
[2022-07-17] MEDS ORDERED: LORazepam 0.5 MG TABLET PO SCH (05:00)
[2022-07-18] MEDS ORDERED: LORazepam 0.5 MG TABLET PO ONE (05:00)
== END 2022-07-16 18:30 | disposition home or self-care (01) | DRG 53 ==
LOC: JER 16:47 → JERBED 22:46 → OBSVTOIN 07-15 00:27 → J7W 07-15 06:43
PROVIDERS: ADMIT Internal Medicine; ATTEND Internal Medicine
DX: G40.909 Epilepsy, unspecified, not intractable, without status epilepticus (principal); I10 Essential (primary) hypertension; E78.5 Hyperlipidemia, unspecified; K21.9 Gastro-esophageal reflux disease without esophagitis; G43.909 Migraine, unspecified, not intractable, without status migrainosus; K76.0 Fatty (change of) liver, not elsewhere classified; E87.6 Hypokalemia; E83.42 Hypomagnesemia; E83.39 Other disorders of phosphorus metabolism; K70.10 Alcoholic hepatitis without ascites; F10.229 Alcohol dependence with intoxication, unspecified; G93.89 Other specified disorders of brain; K57.90 Diverticulosis of intestine, part unspecified, without perforation or abscess without bleeding; E87.20 Acidosis, unspecified; E46 Unspecified protein-calorie malnutrition; M62.82 Rhabdomyolysis; N17.9 Acute kidney failure, unspecified; E66.9 Obesity, unspecified; Z68.38 Body mass index [BMI] 38.0-38.9, adult; Z87.11 Personal history of peptic ulcer disease
CPT/HCPCS: 0241U-QW; 36415; 70450-TC; 71046-TC-FY; 76700-TC; 76775-TC; 80048; 80053; 80061; 80307; 82550; 82553; 82962; 83036; 83605; 83690; 83735; 83880; 84100; 84443; 84484; 85025; 85610; 85730; 86850; 86900; 86901; 93005; 93010; 99285-25; G0378; J1644

== ENCOUNTER 2023-01-16 15:42 | Observation (INO) | payer SELFPAY ==
[2023-01-16 16:08] VITALS: BMI 29.6
[2023-01-16] MEDS ORDERED: levETIRAcetam 500 MG/5 ML INJECTION VIAL IVPB ONE ×3 (16:43→17:22)
[2023-01-16] MEDS ORDERED: ALBUTEROL SO4 2.5/IPRATROPIUM 0.5 INH SOL 3 ML VIAL.NEB. NEB ONE ×2 (16:47→17:22)
[2023-01-16] MEDS: ALBUTEROL SO4 2.5/IPRATROPIUM 0.5 INH SOL 3 ML VIAL.NEB. NEB SCH ×3 (17:08→17:51)
[2023-01-16 18:34] LABS: VENOUS BASE EXCESS -2.5 mmol/L (-2-2); VENOUS O2 SATURATION 37.2 % (70-80); VENOUS PCO2 49.6 mmHg (38-52); VENOUS PH 7.309 (7.310-7.410)
[2023-01-16 18:42] LABS: BASO % 0.4 % (0-2.0); EOS % 0.3 % (0-4.5); HEMATOCRIT 39.3 % (35.4-49); HEMOGLOBIN 13.2 GM/dL (11.7-16.9); LYMPH % 13.2 % (8-40); MCH 28.8 pg (25.7-33.7); MCHC 33.7 g/dl (32.0-35.9); MEAN CELL VOLUME 85.4 fl (80-96); MEAN PLT VOLUME 7.9 fl (7.5-11.1); MONO % 4.9 % (3.8-10.2); NEUT % 81.2 % (42.8-82.8); PLATELET COUNT 274 10^3/uL (134-434); RDW 15.1 % (11.9-15.9); WHITE BLOOD COUNT 10.5 K/mm3 (4.0-10.0)
[2023-01-16 18:58] LABS: CALCIUM 7.6 mg/dL (8.5-10.1)
[2023-01-16 18:59] LABS: ALBUMIN 3.8 g/dl (3.4-5.0); MAGNESIUM 1.2 mg/dL (1.8-2.4)
[2023-01-16] MEDS ORDERED: SODIUM CHLORIDE 0.9% 500 ML INFUS.BAG IV ONE (19:01)
[2023-01-16 19:02] LABS: CREATININE 1.4 mg/dL (0.55-1.3)
[2023-01-16 19:03] LABS: BILIRUBIN,TOTAL 0.3 mg/dL (0.2-1)
[2023-01-16] MEDS ORDERED: POTASSIUM CHLORIDE 40 MEQ in SODIUM CHLORIDE 1,000 ML IV SCH (22:45)
[2023-01-16] MEDS ORDERED: MAGNESIUM SULFATE IN WATER 2 GM/50 ML IVPB IVPB ONE ×2 (22:46→22:52)
[2023-01-17] MEDS ORDERED: chlordiazePOXIDE HCL 25 MG CAPSULE PO PRN (00:23)
[2023-01-17] MEDS ORDERED: POTASSIUM CHLORIDE TABS 20 MEQ TABLET.ER (FP) PO ONE ×2 (05:45→06:45)
[2023-01-17 06:22] LABS: COCAINE, UR NEGATIVE (NEGATIVE); OPIATES, URI NEGATIVE (NEGATIVE); URINE BARBITURATES NEGATIVE (NEGATIVE)
[2023-01-17 06:23] LABS: PHENCYCLIDINE,URINE NEGATIVE (NEGATIVE); URINE BENZODIAZEPINES NEGATIVE (NEGATIVE)
[2023-01-17 06:27] LABS: METHADONE, UR NEGATIVE (NEGATIVE); URINE AMPHETAMINES NEGATIVE (NEGATIVE)
[2023-01-17] MEDS ORDERED: CEFTRIAXONE 1 GM in DEXTROSE 5%-WATER - 50 ML IVPB SCH (06:34)
[2023-01-17] MEDS ORDERED: AZITHROMYCIN IVPB 500 MG/250 ML BAG IVPB ONE ×2 (06:34→07:37)
[2023-01-17] MEDS ORDERED: CEFTRIAXONE 1 GM/50 ML BAG ONE (06:45)
[2023-01-17] MEDS ORDERED: PANTOPRAZOLE 40 MG TABLET PO SCH (07:00)
[2023-01-17 08:10] LABS: HEMATOCRIT 34.2 % (35.4-49); HEMOGLOBIN 11.6 GM/dL (11.7-16.9); MCH 29.1 pg (25.7-33.7); MCHC 33.9 g/dl (32.0-35.9); MEAN CELL VOLUME 85.8 fl (80-96); PLATELET COUNT 241 10^3/uL (134-434); RBC 3.98 M/mm3 (4.00-5.60); RDW 14.6 % (11.9-15.9); WHITE BLOOD COUNT 9.9 K/mm3 (4.0-10.0)
[2023-01-17 08:22] LABS: CHLORIDE 104 mmol/L (98-107); POTASSIUM 3.1 mmol/L (3.5-5.1); SODIUM 140 mmol/L (136-145)
[2023-01-17 08:25] LABS: ALBUMIN 3.4 g/dl (3.4-5.0); ANION GAP 11 MMOL/L (8-16); BLOOD UREA NITROGEN 5.8 mg/dL (7-18); CO2 24 mmol/L (21-32); GLUCOSE,RANDOM 109 mg/dL (74-106); MAGNESIUM 1.3 mg/dL (1.8-2.4)
[2023-01-17 08:28] LABS: PHOSPHOROUS 2.8 mg/dL (2.5-4.9); SGOT/AST 74 U/L (15-37); SGPT/ALT 64 U/L (13-61)
[2023-01-17 08:29] LABS: BILIRUBIN,TOTAL 0.7 mg/dL (0.2-1)
[2023-01-17 08:42] LABS: ALK PHOS 184 U/L (45-117); CALCIUM 6.9 mg/dL (8.5-10.1)
[2023-01-17 09:16] VITALS: BP 160/97; PULSE 81; RESP 18; TEMP 98.3
[2023-01-17] MEDS ORDERED: THIAMINE HCL 100 MG TABLET (FP) PO SCH (10:00)
[2023-01-17] MEDS ORDERED: ENOXAPARIN NA (PORCINE) 40 MG/0.4 ML DISP.SYRIN SQ SCH (10:00)
[2023-01-17] MEDS ORDERED: levETIRAcetam 250 MG TABLET PO SCH ×2 (10:00→22:00)
[2023-01-17] MEDS ORDERED: FOLIC ACID 1 MG TABLET (FP) PO SCH (10:00)
[2023-01-17 13:03] LABS: CALCIUM 7.3 mg/dL (8.5-10.1)
[2023-01-17 13:04] LABS: MAGNESIUM 1.4 mg/dL (1.8-2.4)
[2023-01-17] MEDS ORDERED: MAGNESIUM 1GM/D5W - 1 GM/100 ML IVPB IVPB ONE (13:28)
[2023-01-17] MEDS ORDERED: KCL 10 MEQ IVPB 10 MEQ/100 ML INFUS.BAG IVPB SCH (13:30)
[2023-01-17] MEDS ORDERED: CALCIUM GLUCONATE IN NACL 1 GM/50 ML BAG IVPB ONE (14:00)
[2023-01-17] MEDS ORDERED: ATORVASTATIN CA 20 MG TABLET (FP) PO SCH (22:00)
[2023-01-17] MEDS ORDERED: chlordiazePOXIDE HCL 25 MG CAPSULE PO SCH (23:00)
[2023-01-18] MEDS ORDERED: AZITHROMYCIN 250 MG TABLET PO SCH (10:00)
[2023-01-19] MEDS ORDERED: chlordiazePOXIDE HCL 25 MG CAPSULE PO SCH (05:00)
[2023-01-20] MEDS ORDERED: chlordiazePOXIDE HCL 10 MG CAPSULE PO PRN
[2023-01-20] MEDS ORDERED: chlordiazePOXIDE HCL 10 MG CAPSULE PO SCH (05:00)
[2023-01-21] MEDS ORDERED: chlordiazePOXIDE HCL 10 MG CAPSULE PO SCH (05:00)
[2023-01-22] MEDS ORDERED: chlordiazePOXIDE HCL 10 MG CAPSULE PO ONE (05:00)
== END 2023-01-17 15:30 | disposition left against medical advice (07) ==
LOC: JER 15:42 → JERBED 20:45
PROVIDERS: ADMIT Internal Medicine; ATTEND Internal Medicine
CPT/HCPCS: 0241U-QW; 36415; 71046-TC-FY; 71250-TC; 80053; 80177; 80307; 82310; 82803; 83735; 83880; 84100; 84484; 85025; 85027; 93005; 93010; 99285-25; G0378

== ENCOUNTER 2023-03-26 01:53 | Inpatient (IN) | payer OTHER ==
[2023-03-26] MEDS ORDERED: SODIUM CHLORIDE 0.9% 500 ML INFUS.BAG IV ONE (03:43)
[2023-03-26] MEDS ORDERED: ONDANSETRON 4 MG/2 ML VIAL IVPUSH ONE (03:43)
[2023-03-26] MEDS ORDERED: ONDANSETRON 4 MG/2 ML VIAL ONE ×3 (04:05→22:46)
[2023-03-26 04:18] LABS: BASO % 1.1 % (0-2.0); HEMATOCRIT 36.7 % (35.4-49); HEMOGLOBIN 12.3 GM/dL (11.7-16.9); LYMPH % 28.1 % (8-40); MCH 28.9 pg (25.7-33.7); MCHC 33.5 g/dl (32.0-35.9); MEAN CELL VOLUME 86.5 fl (80-96); MEAN PLT VOLUME 8.6 fl (7.5-11.1); MONO % 6.2 % (3.8-10.2); NEUT % 61.6 % (42.8-82.8); PLATELET COUNT 324 10^3/uL (134-434); RBC 4.24 M/mm3 (4.00-5.60); RDW 17.9 % (11.9-15.9); WHITE BLOOD COUNT 10.2 K/mm3 (4.0-10.0)
[2023-03-26 04:26] LABS: INR 1.03 (0.83-1.09)
[2023-03-26] MEDS ORDERED: VANCOMYCIN 1,000 MG in DEXTROSE 5%-WATER - 250 ML IVPB ONE (05:46)
[2023-03-26] MEDS ORDERED: FOLIC ACID INJECTION - 1 MG, THIAMINE HCL 100 MG, MULTIVIT INJECTION ADULT 10 ML in SOD... IVPB ONE (05:49)
[2023-03-26 06:04] LABS: POTASSIUM 3.2 mmol/L (3.5-5.1)
[2023-03-26 06:06] LABS: CALCIUM 8.7 mg/dL (8.5-10.1)
[2023-03-26 06:07] LABS: ALBUMIN 3.3 g/dl (3.4-5.0); BLOOD UREA NITROGEN 8.3 mg/dL (7-18); MAGNESIUM 1.5 mg/dL (1.8-2.4)
[2023-03-26 06:10] LABS: CREATININE 1.2 mg/dL (0.55-1.3); PHOSPHOROUS 3.2 mg/dL (2.5-4.9)
[2023-03-26 06:11] LABS: BILIRUBIN,TOTAL 1.8 mg/dL (0.2-1); TOT PROT 8.2 g/dl (6.4-8.2)
[2023-03-26] MEDS ORDERED: MAGNESIUM SULF 50% (8.12 MEQ/2 ML-1 GM VIAL) IVPB ONE (06:12)
[2023-03-26] MEDS ORDERED: MAGNESIUM SULF 50% (8.12 MEQ/2 ML-1 GM VIAL) ONE (06:25)
[2023-03-26] MEDS ORDERED: VANCOMYCIN 1 GRAM (PRE-DOCKED) 1,000 MG/250 ML BAG IVPB ONE (06:25)
[2023-03-26] MEDS: ENOXAPARIN NA (PORCINE) 40 MG/0.4 ML DISP.SYRIN SQ SCH (09:08)
[2023-03-26] MEDS ORDERED: LORazepam 1 MG TABLET PO PRN (10:27)
[2023-03-26] MEDS ORDERED: LACTATED RINGERS SOLUTION 1,000 ML/1,000 ML INFUS.BAG IV SCH (10:30)
[2023-03-26] MEDS ORDERED: POTASSIUM CHLORIDE ORAL LIQUID 20 MEQ/15 ML ONE (10:41)
[2023-03-26] MEDS ORDERED: POTASSIUM CHLORIDE ORAL LIQUID 20 MEQ/15 ML PO ONE (10:50)
[2023-03-26] MEDS: ONDANSETRON 4 MG/2 ML VIAL IVPUSH PRN ×2 (10:51→22:50)
[2023-03-26] MEDS ORDERED: KCL 10 MEQ IVPB 10 MEQ/100 ML INFUS.BAG IVPB SCH (11:00)
[2023-03-26] MEDS: LORazepam 1 MG TABLET PO SCH ×3 (13:21→22:51)
[2023-03-26] MEDS: levETIRAcetam 500 MG/5 ML INJECTION VIAL IVPB SCH ×2 (13:26→22:51)
[2023-03-26] MEDS ORDERED: LORazepam 1 MG TABLET ONE ×2 (18:16→22:43)
[2023-03-26] MEDS ORDERED: ATORVASTATIN CA 20 MG TABLET (FP) ONE (22:43)
[2023-03-26] MEDS ORDERED: hydrALAZINE HCL 25 MG TABLET (FP) ONE (22:43)
[2023-03-26] MEDS ORDERED: levETIRAcetam 500 MG/5 ML INJECTION VIAL IVPB ONE (22:43)
[2023-03-26] MEDS: hydrALAZINE HCL 25 MG TABLET (FP) PO SCH (22:50)
[2023-03-26] MEDS: ATORVASTATIN CA 20 MG TABLET (FP) PO SCH (22:51)
[2023-03-27] MEDS ORDERED: LORazepam 1 MG TABLET ONE ×3 (04:23→17:20)
[2023-03-27] MEDS: LORazepam 1 MG TABLET PO SCH ×4 (04:40→23:03)
[2023-03-27 08:16] LABS: BASO % 0.5 % (0-2.0); HEMATOCRIT 41.3 % (35.4-49); HEMOGLOBIN 13.6 GM/dL (11.7-16.9); LYMPH % 9.1 % (8-40); MCH 28.7 pg (25.7-33.7); MEAN PLT VOLUME 8.9 fl (7.5-11.1); MONO % 7.2 % (3.8-10.2); NEUT % 83.2 % (42.8-82.8); PLATELET COUNT 407 10^3/uL (134-434); RBC 4.75 M/mm3 (4.00-5.60); RDW 17.7 % (11.9-15.9); WHITE BLOOD COUNT 19.1 K/mm3 (4.0-10.0)
[2023-03-27 08:53] LABS: CREATININE 1.8 mg/dL (0.55-1.3)
[2023-03-27] MEDS ORDERED: ONDANSETRON 4 MG/2 ML VIAL IVPUSH PRN (08:55)
[2023-03-27] MEDS ORDERED: ONDANSETRON 4 MG/2 ML VIAL ONE (09:01)
[2023-03-27] MEDS ORDERED: PANTOPRAZOLE 40 MG TABLET PO SCH (10:00)
[2023-03-27 11:06] LABS: LACTIC ACID 2.3 mmol/L (0.4-2.0)
[2023-03-27] MEDS ORDERED: PANTOPRAZOLE 40 MG TABLET PO ONE (11:32)
[2023-03-27] MEDS ORDERED: hydrALAZINE HCL 25 MG TABLET (FP) ONE (11:32)
[2023-03-27] MEDS ORDERED: ENOXAPARIN NA (PORCINE) 40 MG/0.4 ML DISP.SYRIN SQ ONE (11:33)
[2023-03-27] MEDS ORDERED: levETIRAcetam 500 MG/5 ML INJECTION VIAL IVPB ONE (11:33)
[2023-03-27] MEDS: ENOXAPARIN NA (PORCINE) 40 MG/0.4 ML DISP.SYRIN SQ SCH (11:42)
[2023-03-27] MEDS: levETIRAcetam 500 MG/5 ML INJECTION VIAL IVPB SCH ×2 (11:42→23:05)
[2023-03-27] MEDS: SODIUM CHLORIDE 1,000 ML IV SCH ×2 (11:42→23:21)
[2023-03-27] MEDS: hydrALAZINE HCL 25 MG TABLET (FP) PO SCH ×2 (11:42→23:17)
[2023-03-27] MEDS ORDERED: MAG HYDROX/AL HYDROX/SIMETH 30 ML UNIT-DOSE CUP PO ONE (12:31)
[2023-03-27] MEDS ORDERED: MAG HYDROX/AL HYDROX/SIMETH -MYLANTA- ORAL SUSPENSION PO ONE (12:31)
[2023-03-27] MEDS ORDERED: MAG HYDROX/AL HYDROX/SIMETH 30 ML UNIT-DOSE CUP ONE (12:34)
[2023-03-27] MEDS ORDERED: PANTOPRAZOLE SODIUM 40 MG VIAL ONE (12:34)
[2023-03-27] MEDS ORDERED: ASPIRIN 81 MG CHEWABLE TABLETS ONE (12:34)
[2023-03-27] MEDS ORDERED: ASPIRIN 81 MG CHEWABLE TABLETS PO ONE (12:45)
[2023-03-27] MEDS ORDERED: PANTOPRAZOLE SODIUM 40 MG VIAL IVPUSH ONE (12:45)
[2023-03-27] MEDS ORDERED: ACETAMINOPHEN 1000 MG/100 ML BAG IVPB PRN (16:50)
[2023-03-27 22:05] LABS: LACTIC ACID 2.2 mmol/L (0.4-2.0)
[2023-03-27 22:53] VITALS: RESP 18; BMI 29.1
[2023-03-27] MEDS: ATORVASTATIN CA 20 MG TABLET (FP) PO SCH (23:05)
[2023-03-27] MEDS: PANTOPRAZOLE 40 MG TABLET PO SCH (23:05)
[2023-03-28] MEDS: LORazepam 0.5 MG TABLET PO SCH ×4 (05:48→16:59)
[2023-03-28] MEDS: levETIRAcetam 500 MG/5 ML INJECTION VIAL IVPB SCH ×2 (10:17→22:14)
[2023-03-28] MEDS: PANTOPRAZOLE 40 MG TABLET PO SCH ×2 (10:17→22:14)
[2023-03-28] MEDS: ENOXAPARIN NA (PORCINE) 40 MG/0.4 ML DISP.SYRIN SQ SCH (10:17)
[2023-03-28] MEDS: hydrALAZINE HCL 25 MG TABLET (FP) PO SCH ×2 (10:17→22:13)
[2023-03-28 12:03] LABS: HEMATOCRIT 34.7 % (35.4-49); HEMOGLOBIN 11.4 GM/dL (11.7-16.9); MCH 28.9 pg (25.7-33.7); MEAN CELL VOLUME 87.6 fl (80-96); MEAN PLT VOLUME 8.6 fl (7.5-11.1); PLATELET COUNT 294 10^3/uL (134-434); RBC 3.96 M/mm3 (4.00-5.60); RDW 17.5 % (11.9-15.9); WHITE BLOOD COUNT 22.7 K/mm3 (4.0-10.0)
[2023-03-28 12:28] LABS: POTASSIUM 3.2 mmol/L (3.5-5.1)
[2023-03-28 12:30] LABS: BLOOD UREA NITROGEN 33.9 mg/dL (7-18); CALCIUM 8.5 mg/dL (8.5-10.1)
[2023-03-28 12:34] LABS: CREATININE 3.1 mg/dL (0.55-1.3)
[2023-03-28 13:46] LABS: ANISOCYTOSIS 2+; MACROCYTOSIS 0; ROULEAU 1+
[2023-03-28] MEDS: TRIAMCINOLONE ACET 0.1% 60 ML LOTION TP SCH (15:40)
[2023-03-28] MEDS: SODIUM CHLORIDE 1,000 ML IV SCH (15:41)
[2023-03-28] MEDS: ATORVASTATIN CA 20 MG TABLET (FP) PO SCH (22:14)
[2023-03-29] MEDS: LORazepam 0.5 MG TABLET PO SCH (06:55)
[2023-03-29] MEDS ORDERED: SODIUM CHLORIDE 1,000 ML IV SCH (08:45)
[2023-03-29] MEDS: hydrALAZINE HCL 25 MG TABLET (FP) PO SCH ×2 (09:57→22:04)
[2023-03-29] MEDS: ENOXAPARIN NA (PORCINE) 40 MG/0.4 ML DISP.SYRIN SQ SCH (09:57)
[2023-03-29] MEDS: PANTOPRAZOLE 40 MG TABLET PO SCH ×2 (09:57→22:05)
[2023-03-29] MEDS: levETIRAcetam 500 MG/5 ML INJECTION VIAL IVPB SCH ×2 (09:57→22:05)
[2023-03-29] MEDS: TRIAMCINOLONE ACET 0.1% 60 ML LOTION TP SCH (09:58)
[2023-03-29 10:18] LABS: BASO % 0.6 % (0-2.0); EOS % 0.8 % (0-4.5); HEMATOCRIT 29.2 % (35.4-49); HEMOGLOBIN 9.8 GM/dL (11.7-16.9); LYMPH % 16.8 % (8-40); MCH 29.4 pg (25.7-33.7); MCHC 33.4 g/dl (32.0-35.9); MEAN PLT VOLUME 8.4 fl (7.5-11.1); MONO % 8.5 % (3.8-10.2); NEUT % 73.3 % (42.8-82.8); PLATELET COUNT 288 10^3/uL (134-434); RBC 3.32 M/mm3 (4.00-5.60); WHITE BLOOD COUNT 16.7 K/mm3 (4.0-10.0)
[2023-03-29 10:37] LABS: CHLORIDE 92 mmol/L (98-107); SODIUM 133 mmol/L (136-145)
[2023-03-29 10:40] LABS: BLOOD UREA NITROGEN 33.8 mg/dL (7-18); CALCIUM 8.7 mg/dL (8.5-10.1)
[2023-03-29 10:41] LABS: ANION GAP 10 mmol/L (4-13); CO2 31 mmol/L (21-32); GLUCOSE,RANDOM 90 mg/dL (74-106)
[2023-03-29 10:43] LABS: BILIRUBIN,DIRECT 0.7 mg/dL (0.0-0.2); CREATININE 2.4 mg/dL (0.55-1.3); SGPT/ALT 31 U/L (13-61)
[2023-03-29 10:44] LABS: SGOT/AST 51 U/L (15-37)
[2023-03-29 10:45] LABS: BILIRUBIN,TOTAL 1.5 mg/dL (0.2-1); TOT PROT 6.5 g/dl (6.4-8.2)
[2023-03-29 11:26] LABS: ALBUMIN 2.6 g/dl (3.4-5.0); ALK PHOS 338 U/L (45-117); GAMMA GLUTAMYL TRANSPEPTIDASE 1640 U/L (5-85)
[2023-03-29] MEDS: KCL 10 MEQ IVPB 10 MEQ/100 ML INFUS.BAG IVPB SCH ×2 (16:40→16:42)
[2023-03-29] MEDS: ATORVASTATIN CA 20 MG TABLET (FP) PO SCH (22:04)
[2023-03-29] MEDS: HEPARIN NA (PORCINE) 5,000 UNITS/ML 1ML VIAL SQ SCH (22:04)
[2023-03-29] MEDS: POTASSIUM CHLORIDE ORAL LIQUID 20 MEQ/15 ML PO SCH (22:05)
[2023-03-30] MEDS: HEPARIN NA (PORCINE) 5,000 UNITS/ML 1ML VIAL SQ SCH ×2 (06:40→15:05)
[2023-03-30 06:48] LABS: OPIATES, URI NEGATIVE (NEGATIVE); URINE BARBITURATES NEGATIVE (NEGATIVE)
[2023-03-30 06:49] LABS: COCAINE, UR NEGATIVE (NEGATIVE); METHADONE, UR NEGATIVE (NEGATIVE); PHENCYCLIDINE,URINE NEGATIVE (NEGATIVE); URINE AMPHETAMINES NEGATIVE (NEGATIVE); URINE BENZODIAZEPINES NEGATIVE (NEGATIVE)
[2023-03-30 08:31] LABS: HEMATOCRIT 27.9 % (35.4-49); HEMOGLOBIN 9.2 GM/dL (11.7-16.9); MCH 29.1 pg (25.7-33.7); MCHC 33.1 g/dl (32.0-35.9); MEAN CELL VOLUME 87.8 fl (80-96); MEAN PLT VOLUME 8.6 fl (7.5-11.1); PLATELET COUNT 296 10^3/uL (134-434); RBC 3.18 M/mm3 (4.00-5.60); RDW 16.7 % (11.9-15.9); WHITE BLOOD COUNT 10.9 K/mm3 (4.0-10.0)
[2023-03-30 08:48] LABS: POTASSIUM 3.2 mmol/L (3.5-5.1)
[2023-03-30 08:55] LABS: ALBUMIN 2.4 g/dl (3.4-5.0); BLOOD UREA NITROGEN 25.4 mg/dL (7-18)
[2023-03-30 08:56] LABS: CREATININE 1.6 mg/dL (0.55-1.3)
[2023-03-30 08:58] LABS: TOT PROT 5.9 g/dl (6.4-8.2)
[2023-03-30] MEDS ORDERED: THIAMINE HCL 100 MG TABLET (FP) PO SCH (10:00)
[2023-03-30] MEDS ORDERED: MULTIVITAMINS (DAILY MVI) TABLET (FP) PO SCH (10:00)
[2023-03-30] MEDS ORDERED: FOLIC ACID 1 MG TABLET (FP) PO SCH (10:00)
[2023-03-30] MEDS: PANTOPRAZOLE 40 MG TABLET PO SCH (10:48)
[2023-03-30] MEDS: hydrALAZINE HCL 25 MG TABLET (FP) PO SCH (10:48)
[2023-03-30] MEDS: levETIRAcetam 500 MG/5 ML INJECTION VIAL IVPB SCH (10:49)
[2023-03-30] MEDS ORDERED: POTASSIUM CHLORIDE TABS 20 MEQ TABLET.ER (FP) PO SCH (11:15)
[2023-03-30 11:39] LABS: ANISOCYTOSIS 1+; MACROCYTOSIS 0
[2023-03-30] MEDS: TRIAMCINOLONE ACET 0.1% 60 ML LOTION TP SCH (11:51)
[2023-03-30] MEDS: POTASSIUM CHLORIDE ORAL LIQUID 20 MEQ/15 ML PO SCH (11:51)
[2023-03-30 15:50] VITALS: BP 141/65; PULSE 88; TEMP 98.2
== END 2023-03-30 16:39 | disposition home or self-care (01) | DRG 392 ==
LOC: JER 01:53 → JERBED 06:41 → J5S 03-27 19:39 → OBSVTOIN 03-28 10:16
PROVIDERS: ADMIT Internal Medicine
DX: A08.4 Viral intestinal infection, unspecified (principal); E87.1 Hypo-osmolality and hyponatremia; F10.239 Alcohol dependence with withdrawal, unspecified; N17.9 Acute kidney failure, unspecified; I10 Essential (primary) hypertension; E78.5 Hyperlipidemia, unspecified; G40.909 Epilepsy, unspecified, not intractable, without status epilepticus; K20.90 Esophagitis, unspecified without bleeding; G43.909 Migraine, unspecified, not intractable, without status migrainosus; K70.10 Alcoholic hepatitis without ascites; K86.9 Disease of pancreas, unspecified; K57.90 Diverticulosis of intestine, part unspecified, without perforation or abscess without bleeding; K21.9 Gastro-esophageal reflux disease without esophagitis; K76.0 Fatty (change of) liver, not elsewhere classified; R79.89 Other specified abnormal findings of blood chemistry; F32.A Depression, unspecified; E87.6 Hypokalemia; R94.31 Abnormal electrocardiogram [ECG] [EKG]; E86.0 Dehydration; E83.42 Hypomagnesemia; Z87.11 Personal history of peptic ulcer disease
CPT/HCPCS: 36415; 71046-TC-FY; 74176-TC; 74181-TC; 76705-TC; 80048; 80053; 80307; 82248; 82550; 82553; 82977; 83036; 83605; 83690; 83735; 84100; 84443; 84484; 85025; 85027; 85610; 86704; 86803; 87324; 87340; 87449; 87517; 93005; 93010; 93306-TC; 93971-TC; 97116-GP; 97161-GP; 99285-25; G0378; J1644

== ENCOUNTER 2023-04-01 13:49 | Emergency (ER) | payer OTHER ==
[2023-04-01 14:18] VITALS: BP 124/74; PULSE 90; RESP 18; TEMP 97.8; BMI 27.6
[2023-04-01] MEDS ORDERED: SODIUM CHLORIDE 0.9% 500 ML INFUS.BAG IV ONE (15:26)
[2023-04-01] MEDS ORDERED: ONDANSETRON 4 MG/2 ML VIAL IVPUSH ONE (15:26)
[2023-04-01] MEDS ORDERED: FAMOTIDINE 20 MG/50 ML IVPB 20 MG/50 ML MG IVPB ONE (15:30)
[2023-04-01] MEDS ORDERED: MAG HYDROX/AL HYDROX/SIMETH 30 ML UNIT-DOSE CUP PO ONE (15:30)
[2023-04-01] MEDS ORDERED: ACETAMINOPHEN 1000 MG/100 ML BAG IVPB ONE (15:30)
[2023-04-01] MEDS ORDERED: ACETAMINOPHEN INJECTION 100 ML IVPB ONE (15:52)
[2023-04-01] MEDS ORDERED: FAMOTIDINE 10 MG/ML VIAL IVPB ONE (15:53)
[2023-04-01] MEDS ORDERED: ONDANSETRON 4 MG/2 ML VIAL ONE (15:53)
[2023-04-01] MEDS ORDERED: MAG HYDROX/AL HYDROX/SIMETH 30 ML UNIT-DOSE CUP ONE (15:53)
[2023-04-01 17:21] LABS: EOS % 3.6 % (0-4.5); HEMATOCRIT 30.5 % (35.4-49); HEMOGLOBIN 9.9 GM/dL (11.7-16.9); MCH 28.9 pg (25.7-33.7); MCHC 32.4 g/dl (32.0-35.9); MEAN CELL VOLUME 89.2 fl (80-96); MEAN PLT VOLUME 8.7 fl (7.5-11.1); MONO % 13.7 % (3.8-10.2); NEUT % 59.7 % (42.8-82.8); PLATELET COUNT 387 10^3/uL (134-434); RBC 3.42 M/mm3 (4.00-5.60); RDW 16.3 % (11.9-15.9); WHITE BLOOD COUNT 12.3 K/mm3 (4.0-10.0)
[2023-04-01 17:39] LABS: POTASSIUM 3.5 mmol/L (3.5-5.1)
[2023-04-01 17:41] LABS: CALCIUM 9.4 mg/dL (8.5-10.1)
[2023-04-01 17:42] LABS: BLOOD UREA NITROGEN 14.8 mg/dL (7-18)
[2023-04-01 17:45] LABS: CREATININE 1.3 mg/dL (0.55-1.3)
[2023-04-01 17:46] LABS: BILIRUBIN,TOTAL 0.7 mg/dL (0.2-1); TOT PROT 7.2 g/dl (6.4-8.2)
[2023-04-01 17:50] LABS: ALBUMIN 3.1 g/dl (3.4-5.0)
[2023-04-01] MEDS ORDERED: LIDOCAINE VISCOUS 2% ORAL/TOP 15 ML UNIT-DOSE CUP MM ONE (18:08)
[2023-04-01] MEDS ORDERED: LIDOCAINE VISCOUS 2% ORAL/TOP 15 ML UNIT-DOSE CUP ONE (18:16)
== END 2023-04-01 20:03 | disposition home or self-care (01) ==
LOC: JER 13:49
PROC: 3E033GC Introduction of Other Therapeutic Substance into Peripheral Vein, Percutaneous Approach (ICD-10-PCS; principal; 2023-04-01)
PROC: 3E033NZ Introduction of Analgesics, Hypnotics, Sedatives into Peripheral Vein, Percutaneous Approach (ICD-10-PCS; 2023-04-01)
PROC: 3E033GC Introduction of Other Therapeutic Substance into Peripheral Vein, Percutaneous Approach (ICD-10-PCS; 2023-04-01)
DX: R42 Dizziness and giddiness (principal); R13.10 Dysphagia, unspecified; R11.2 Nausea with vomiting, unspecified; R60.0 Localized edema; R07.9 Chest pain, unspecified; R09.81 Nasal congestion; K22.89 Other specified disease of esophagus; X50.3XXA Overexertion from repetitive movements, initial encounter; Y93.01 Activity, walking, marching and hiking; Z20.822 Contact with and (suspected) exposure to COVID-19
CPT/HCPCS: 0241U-QW; 36415; 80053; 84484; 85025; 93005; 93010; 99284-25